=== PATIENT | female | born 1935 | race Caucasian/White ===

== ENCOUNTER 2021-03-06 23:39 | Inpatient (IN) ==
--- NOTE | 2021-03-06 23:59 | Emergency Department Note ---
Impression & Plan Hip fracture, left, Dementia, Acute UTI (urinary tract infection) ED Provider Note Name: STEPHEN BLACKWELL Age: 85 Sex: F Arrives Via: Ambulance Informant: Chart, EMS, ED Provider: Chano Logan MD Chief Complaint: fall Impression: Left Hip fracture Dementia Acute UTI Medical Decision Makin yr old female from local [facility] with fall earlier in evening. Exam consistent with left hip fracture that was diagnosed by xray earlier at [facility]. CT head negative for acute findings. Work-up benign other than Straight cath UA consistent with UTI. Not in much distress on several evaluations. Hospitalist consulted for further evaluation. did show up later in evening and I discussed case with him at bedside as well as did Dr Becerra. Prior Medical Record and Triage/Nursing Notes reviewed by Me Additional history obtained from chart Differentials:Infection, dehydration, metabolic abnormality, hypo/hyperglycemia, electrolyte disturbance, anemia, hypoxia, cardiac sources, intracerebral event, toxicologic, neurologic, as well as other pathologies. Vital Signs: reviewed and remarkable for no significant abnormalities Interventions: Saline lock, rocephin 1 gm iv Labs:Reviewed and remarkable for UA consistent with UTI Imaging:[facility] Radiologist interpretation reviewed by me: CT head negative per [facility] X ray results are stated below per my interpretation: Chest: 1 view: No infiltrate, no effusion, normal cardiac border. hip left hip fracture. EKG:Per My Interpretation: Indication weakness: NSR 94 bpm, qtc 450. Poor baseline. No Ectopy. No Ischemia. Compared to EKG 10/28/20 similar morphology though rate has increased. Cardiac/Tele Monitoring: Cardiac Monitoring: An Order was placed for continuous cardiac monitoring. The monitor shows a rate of 90 with a normal sinus rhythm. Consults:Dr Hernan Wilson hospitalist Plan: Disposition:Hospitalization. Condition: Fair History of Present Illness:85 yr old female arrives for evaluation of left hip pain. Patient feel around dinner time. Complaining of left hip pain. No reported LOC, head injury nor other injuries. She is not on any blood thinners. No known previous injuries. Dementia patient unable to given history. No known meds prior to arrival. ROS: Unable to obtain due to dementia Past Medical History:Dementia Past Surgical History:See Below Family History:See Below Social History:See Below Home Medications:See Below Allergies:See Below Vitals:Blood Pressure: 143/78, Pulse 90, RR 18, T 36.8C, O2 93% on RA Physical Exam: GENERAL: Patient is elderly appearing and in no acute distress. EYES: No scleral icterus, unremarkable pupils. ENT: Mucous membranes moist, no nasal congestion. NECK: No masses appreciated, nomeningismus, trachea is midline. RESPIRATORY: No dyspnea. Clear to auscultation and equal bilaterally. No wheeze, no rhonchi. CARDIOVASCULAR: Regular rate and rhythm.No murmurs, rubs, gallops appreciated. GASTROINTESTINAL: Abdomen soft, non-tender, no peritonitis.Bowel sounds positive.No masses appreciated. BACK: No midline tenderness, no CVA tenderness EXTREMITIES: Shortened rotated left leg with pain on movement left hip. Pulses intact. Otherwise normal motion all extremities, no cyanosis, no edema. NEUROLOGIC: Significant dementia, sleeping, no acute motor or sensory deficits, no focal weakness, cranial nerves grossly intact. SKIN: No rash, no jaundice, no diaphoresis. 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 Feels Safe at Home: Yes Allergies Allergies Allergy/AdvReac Type Severity Reaction Status Date / Time No Known Allergies Allergy Verified 03/07/21 01:31 Home Meds Home Medications Medication Instructions Recorded Confirmed vitamins A,C,I-iugz-zbetui 14,320 1 cap PO AMHS 02/09/20 03/07/21 unit-226 mg-200 unit capsule (PreserVision AREDS) lorazepam 0.5 mg tablet 0.25 mg PO TID 10/28/20 03/07/21 acetaminophen 325 mg tablet 650 mg PO Q4H PRN MDD 3 GRAMS/24 03/07/21 03/07/21 (Tylenol) HOURS cholecalciferol (vitamin D3) 10 10 mcg PO QAM 03/07/21 03/07/21 mcg/mL (400 unit/mL) oral drops divalproex 125 mg tablet,delayed 125 mg PO BID 03/07/21 03/07/21 release (Depakote) donepezil 5 mg tablet (Aricept) 10 mg PO QAM 03/07/21 03/07/21 melatonin 3 mg tablet 3 mg PO HS 03/07/21 03/07/21 mirtazapine 15 mg tablet (Remeron) 15 mg PO HS 03/07/21 03/07/21 multivitamin 1 tab PO QAM 03/07/21 03/07/21 olanzapine 10 mg tablet 5 mg PO BID 03/07/21 03/07/21 sennosides 8.6 mg tablet (senna) 8.6 mg PO HS 03/07/21 03/07/21 Results & Data (ED) Vital Signs Vital Signs - 24 hr 03/06/21 23:47 03/07/21 00:30 03/07/21 02:48 Temperature 36.8 C Temperature Source Oral Pulse Rate 90 Pulse Rate [Apical] 90 92 H Respiratory Rate 18 18 18 Blood Pressure 143/78 H Blood Pressure [Right Arm] 154/81 H 125/91 Blood Pressure Mean 99 Blood Pressure Mean [Right Arm] 105 102 Pulse Oximetry 93 92 93 Oxygen Delivery Method Room Air Room Air Room Air Sepsis Recent Fever Within 48 Hours No Sepsis New/Unexplained Change in Mental Status N/A Sepsis Action Taken by Nursing No Action Required Laboratory Data Result diagrams: 03/07/21 00:19 03/07/21 01:26 Lab Results 03/07/21 03/07/21 03/07/21 Range/Units 00:19 00:19 00:19 WBC 14.08 H (4.8-10.8) K/uL RBC 4.36 (4.2-5.4) M/uL Hgb 13.8 (12.0-16.0) g/dL Hct 42.6 (37-47) % MCV 97.7 (80-100) fL MCH 31.7 (25-34) pg MCHC 32.4 (32-36) g/dL RDW Std Deviation 45.4 (36.4-46.3) fL RDW Coeff of Enrrique 12.6 (11.5-14.5) % Plt Count 229 (130-400) K/uL MPV 10.8 H (7.4-10.4) fL Immature Gran % (Auto) 0.4 % Neut % (Auto) 82.8 % Lymph % (Auto) 8.5 % [place] % (Auto) 8.1 % Eos % (Auto) 0.1 % Baso % (Auto) 0.1 % Neut # (Auto) 11.67 H (1.4-6.5) K/uL Lymph # (Auto) 1.19 L (1.2-3.4) K/uL [place] # (Auto) 1.14 H (0.11-0.59) K/uL Eos # (Auto) 0.01 (0-0.5) K/uL Baso # (Auto) 0.02 (0-0.2) K/uL Immature Gran # (Auto) 0.05 H (0.00-0.02) K/uL PT Cancelled INR Cancelled APTT Cancelled PTT Ratio Cancelled Sodium (136-145) mmol/L Potassium (3.5-5.1) mmol/L Chloride (98-107) mmol/L Carbon Dioxide (21-32) mmol/L Anion Gap (3-11) BUN (7-18) mg/dl Creatinine (0.6-1.2) mg/dl Est Cr Clr Drug Dosing ml/min Est GFR ( Amer) ml/min Est GFR (Non-Af Amer) ml/min BUN/Creatinine Ratio (10-20) Glucose (70-99) mg/dl Estimat Average Glucose mg/dl Hemoglobin A1c (4.5-5.6) % Calcium (8.5-10.1) mg/dl Magnesium (1.8-2.4) mg/dl Total Bilirubin (0.2-1) mg/dl AST (15-37) U/L ALT (12-78) U/L Alkaline Phosphatase (45-117) U/L Total Protein (6.4-8.2) gm/dl Albumin (3.4-5.0) gm/dl Globulin (2.5-4.0) gm/dl Albumin/Globulin Ratio (0.9-2) Urine Color Urine Appearance (Clear) Urine pH (4.5-7.5) Ur Specific Berry (1.000-1.030) Urine Protein (Negative) Urine Glucose (UA) (Negative) Urine Ketones (Negative) Urine Blood (Negative) Urine Nitrite (Negative) Urine Bilirubin (Negative) Urine Urobilinogen (Negative) Ur Leukocyte Esterase (Negative) Urine WBC (Auto) (0-5) /hpf Urine RBC (Auto) (0-4) /hpf U Hyaline Cast (Auto) (0-5) /lpf U Epithel Cells (Auto) (0-5) /lpf Urine Bacteria (Auto) (Negative) Urine Yeast COVID-19 Eval Order SARS-CoV-2 (PCR) (Negative) Blood Type Cancelled Antibody Screen Cancelled 03/07/21 03/07/21 03/07/21 Range/Units 00:19 00:32 00:32 WBC (4.8-10.8) K/uL RBC (4.2-5.4) M/uL Hgb (12.0-16.0) g/dL Hct (37-47) % MCV (80-100) fL MCH (25-34) pg MCHC (32-36) g/dL RDW Std Deviation (36.4-46.3) fL RDW Coeff of Enrrique (11.5-14.5) % Plt Count (130-400) K/uL MPV (7.4-10.4) fL Immature Gran % (Auto) % Neut % (Auto) % Lymph % (Auto) % [place] % (Auto) % Eos % (Auto) % Baso % (Auto) % Neut # (Auto) (1.4-6.5) K/uL Lymph # (Auto) (1.2-3.4) K/uL [place] # (Auto) (0.11-0.59) K/uL Eos # (Auto) (0-0.5) K/uL Baso # (Auto) (0-0.2) K/uL Immature Gran # (Auto) (0.00-0.02) K/uL PT INR APTT PTT Ratio Sodium 141 (136-145) mmol/L Potassium (3.5-5.1) mmol/L Chloride 107 (98-107) mmol/L Carbon Dioxide 28 (21-32) mmol/L Anion Gap 5.0 (3-11) BUN 22 H (7-18) mg/dl Creatinine 0.99 (0.6-1.2) mg/dl Est Cr Clr Drug Dosing 38.1 ml/min Est GFR ( Amer) 60.6 ml/min Est GFR (Non-Af Amer) 52.3 ml/min BUN/Creatinine Ratio 22.2 H (10-20) Glucose 143 H (70-99) mg/dl Estimat Average Glucose mg/dl Hemoglobin A1c (4.5-5.6) % Calcium 8.9 (8.5-10.1) mg/dl Magnesium (1.8-2.4) mg/dl Total Bilirubin 0.7 (0.2-1) mg/dl AST (15-37) U/L ALT 30 (12-78) U/L Alkaline Phosphatase 84 (45-117) U/L Total Protein 6.6 (6.4-8.2) gm/dl Albumin 2.9 L (3.4-5.0) gm/dl Globulin 3.7 (2.5-4.0) gm/dl Albumin/Globulin Ratio 0.8 L (0.9-2) Urine Color Dark Yellow Urine Appearance Cloudy A (Clear) Urine pH 7.0 (4.5-7.5) Ur Specific Berry 1.024 (1.000-1.030) Urine Protein Negative (Negative) Urine Glucose (UA) Negative (Negative) Urine Ketones Trace H (Negative) Urine Blood Negative (Negative) Urine Nitrite Negative (Negative) Urine Bilirubin Negative (Negative) Urine Urobilinogen Negative (Negative) Ur Leukocyte Esterase 3+ H (Negative) Urine WBC (Auto) >30 H (0-5) /hpf Urine RBC (Auto) 0-4 (0-4) /hpf U Hyaline Cast (Auto) 0 (0-5) /lpf U Epithel Cells (Auto) 20-30 H (0-5) /lpf Urine Bacteria (Auto) 4+ H (Negative) Urine Yeast Not Reportable COVID-19 Eval Order Covid19 at [facility] SARS-CoV-2 (PCR) (Negative) Blood Type Antibody Screen 03/07/21 03/07/21 03/07/21 Range/Units 00:32 01:26 01:26 WBC (4.8-10.8) K/uL RBC (4.2-5.4) M/uL Hgb (12.0-16.0) g/dL Hct (37-47) % MCV (80-100) fL MCH (25-34) pg MCHC (32-36) g/dL RDW Std Deviation (36.4-46.3) fL RDW Coeff of Enrrique (11.5-14.5) % Plt Count (130-400) K/uL MPV (7.4-10.4) fL Immature Gran % (Auto) % Neut % (Auto) % Lymph % (Auto) % [place] % (Auto) % Eos % (Auto) % Baso % (Auto) % Neut # (Auto) (1.4-6.5) K/uL Lymph # (Auto) (1.2-3.4) K/uL [place] # (Auto) (0.11-0.59) K/uL Eos # (Auto) (0-0.5) K/uL Baso # (Auto) (0-0.2) K/uL Immature Gran # (Auto) (0.00-0.02) K/uL PT INR APTT PTT Ratio Sodium (136-145) mmol/L Potassium 4.0 (3.5-5.1) mmol/L Chloride (98-107) mmol/L Carbon Dioxide (21-32) mmol/L Anion Gap (3-11) BUN (7-18) mg/dl Creatinine (0.6-1.2) mg/dl Est Cr Clr Drug Dosing ml/min Est GFR ( Amer) ml/min Est GFR (Non-Af Amer) ml/min BUN/Creatinine Ratio (10-20) Glucose (70-99) mg/dl Estimat Average Glucose mg/dl Hemoglobin A1c (4.5-5.6) % Calcium (8.5-10.1) mg/dl Magnesium 2.1 (1.8-2.4) mg/dl Total Bilirubin (0.2-1) mg/dl AST 27 (15-37) U/L ALT (12-78) U/L Alkaline Phosphatase (45-117) U/L Total Protein (6.4-8.2) gm/dl Albumin (3.4-5.0) gm/dl Globulin (2.5-4.0) gm/dl Albumin/Globulin Ratio (0.9-2) Urine Color Urine Appearance (Clear) Urine pH (4.5-7.5) Ur Specific Berry (1.000-1.030) Urine Protein (Negative) Urine Glucose (UA) (Negative) Urine Ketones (Negative) Urine Blood (Negative) Urine Nitrite (Negative) Urine Bilirubin (Negative) Urine Urobilinogen (Negative) Ur Leukocyte Esterase (Negative) Urine WBC (Auto) (0-5) /hpf Urine RBC (Auto) (0-4) /hpf U Hyaline Cast (Auto) (0-5) /lpf U Epithel Cells (Auto) (0-5) /lpf Urine Bacteria (Auto) (Negative) Urine Yeast COVID-19 Eval Order SARS-CoV-2 (PCR) NEGATIVE (Negative) Blood Type O Positive Antibody Screen NEGATIVE 03/07/21 03/07/21 Range/Units 01:26 01:27 WBC (4.8-10.8) K/uL RBC (4.2-5.4) M/uL Hgb (12.0-16.0) g/dL Hct (37-47) % MCV (80-100) fL MCH (25-34) pg MCHC (32-36) g/dL RDW Std Deviation (36.4-46.3) fL RDW Coeff of Enrrique (11.5-14.5) % Plt Count (130-400) K/uL MPV (7.4-10.4) fL Immature Gran % (Auto) % Neut % (Auto) % Lymph % (Auto) % [place] % (Auto) % Eos % (Auto) % Baso % (Auto) % Neut # (Auto) (1.4-6.5) K/uL Lymph # (Auto) (1.2-3.4) K/uL [place] # (Auto) (0.11-0.59) K/uL Eos # (Auto) (0-0.5) K/uL Baso # (Auto) (0-0.2) K/uL Immature Gran # (Auto) (0.00-0.02) K/uL PT 10.7 INR 1.1 APTT 26.9 PTT Ratio 1.0 Sodium (136-145) mmol/L Potassium (3.5-5.1) mmol/L Chloride (98-107) mmol/L Carbon Dioxide (21-32) mmol/L Anion Gap (3-11) BUN (7-18) mg/dl Creatinine (0.6-1.2) mg/dl Est Cr Clr Drug Dosing ml/min Est GFR ( Amer) ml/min Est GFR (Non-Af Amer) ml/min BUN/Creatinine Ratio (10-20) Glucose (70-99) mg/dl Estimat Average Glucose 97 mg/dl Hemoglobin A1c 5.0 (4.5-5.6) % Calcium (8.5-10.1) mg/dl Magnesium (1.8-2.4) mg/dl Total Bilirubin (0.2-1) mg/dl AST (15-37) U/L ALT (12-78) U/L Alkaline Phosphatase (45-117) U/L Total Protein (6.4-8.2) gm/dl Albumin (3.4-5.0) gm/dl Globulin (2.5-4.0) gm/dl Albumin/Globulin Ratio (0.9-2) Urine Color Urine Appearance (Clear) Urine pH (4.5-7.5) Ur Specific Berry (1.000-1.030) Urine Protein (Negative) Urine Glucose (UA) (Negative) Urine Ketones (Negative) Urine Blood (Negative) Urine Nitrite (Negative) Urine Bilirubin (Negative) Urine Urobilinogen (Negative) Ur Leukocyte Esterase (Negative) Urine WBC (Auto) (0-5) /hpf Urine RBC (Auto) (0-4) /hpf U Hyaline Cast (Auto) (0-5) /lpf U Epithel Cells (Auto) (0-5) /lpf Urine Bacteria (Auto) (Negative) Urine Yeast COVID-19 Eval Order SARS-CoV-2 (PCR) (Negative) Blood Type Antibody Screen Administered Medications Sodium Chloride (1/2 Nss) 1,000 mls @ 75 mls/hr IV .[id number] ALTAGRACIA Stop: 04/06/21 04:14 Last Admin: 03/07/21 05:28 Dose: 75 mls/hr Documented by: [id number] Discontinued Medications Ceftriaxone Sodium (Rocephin) 1,000 mg in 50 mls @ 100 mls/hr IV NOW STA Stop: 03/07/21 01:40 Last Infusion: 03/07/21 02:48 Dose: 0 mls/hr Documented by: [id number] Admin: 03/07/21 02:08 Dose: 100 mls/hr Documented by: [id number] Imaging Data Radiologist's Impression: Head CT 03/06/21 23:56 CT head/brain wo con CLINICAL HISTORY: 85 years-old Female with fall, hip fracture. Acute head injury status post fall TECHNIQUE: Multiple axial CT images of the head were obtained without contrast. A dose lowering technique was utilized adhering to the principles of ALARA. CT DOSE: 537.48 mGy.cm COMPARISON: 10/30/2020 FINDINGS: No acute intracranial hemorrhage, midline shift, intracranial mass, hydrocephalus, territorial ischemia or abnormal extra-axial collection. Age- related involutional changes with ex vacuo ventriculomegaly. White matter hypodensities suggestive of chronic microvascular ischemic disease. The calvarium is intact. Prior bilateral lens repair. The paranasal sinuses, mastoid air cells, and middle ear cavities are clear. IMPRESSION: No acute intracranial abnormality. ACT 112: Negative or not required by law. The above report was generated using voice recognition software. It may contain grammatical, syntax or spelling errors. Electronically signed by: Shailesh Benton M.D. 03/07/2021 6:41 AM Chest X-Ray 03/06/21 23:57 XR chest 1V portable HISTORY: 85 years-old Female fall, acute chest trauma status post fall COMPARISON: Chest radiograph 04/30/2020 TECHNIQUE: Portable AP view of the chest FINDINGS: Cardiac silhouette is enlarged. Mild chronic interstitial coarsening. No pneumothorax, pleural effusion, airspace consolidation or overt pulmonary edema. Degenerative changes of the shoulders and spine. There are a few chronic appearing anterior right-sided rib fractures. Mid thoracic dextroscoliosis. IMPRESSION: No acute process. ACT 112: Negative or not required by law. The above report was generated using voice recognition software. It may contain grammatical, syntax or spelling errors. Electronically signed by: Shailesh Benton M.D. 03/07/2021 6:39 AM Hip X-Ray 03/06/21 23:57 XR hip LT min 2V HISTORY: 85 years-old Female left hip pain acute left hip pain status post fall COMPARISON: None TECHNIQUE: 2 views of the left hip FINDINGS: There is an acute subcapital fracture of the left femur with mild impaction and approximately 2.5 cm superior lateral displacement. Moderate soft tissue swelling. Moderate left hip osteoarthritis with demineralized appearance of the bones. IMPRESSION: Acute impacted and displaced subcapital fracture of the left femur. ACT 112: Negative or not required by law. The above report was generated using voice recognition software. It may contain grammatical, syntax or spelling errors. Electronically signed by: Shailesh Benton M.D. 03/07/2021 6:36 AM Discharge Plan Visit Data Chief Complaint: Fall Stated Complaint: FALL w/ lt. HIP FRACTURE PER XRAY ED Provider: Chano Logan Discharge Problem: Hip fracture, left, Dementia, Acute UTI (urinary tract infection) Patient Disposition: Admitted As Inpatient Discharge Instructions Interventions: ED Discharge Assessment Last Done: 03/07/21 04:04 Discharge Problem: Hip fracture, left Qualifiers: Encounter type: initial encounter Fracture type: closed Qualified Code(s): S72.002A - Fracture of unspecified part of neck of left femur, initial encounter for closed fracture Dementia Qualifiers: Dementia type: Alzheimer's Alzheimer's disease onset: other onset Dementia behavioral disturbance: without behavioral disturbance Qualified Code(s): G30.8 - Other Alzheimer's disease
[2021-03-07 00:41] LABS: Basophils # (auto) 0.02 K/uL (0-0.2); Basophils % (auto) 0.1 %; Eosinophils # (auto) 0.01 K/uL (0-0.5); Eosinophils % (auto) 0.1 %; Hematocrit (blood only) 42.6 % (37-47); Hemoglobin 13.8 g/dL (12.0-16.0); Immature Granulocytes # (auto) 0.05 K/uL (0.00-0.02); Immature Granulocytes % (auto) 0.4 %; Lymphocytes # (auto) 1.19 K/uL (1.2-3.4); Lymphocytes % (auto) 8.5 %; Mean Corpuscular Hemoglobin 31.7 pg (25-34); Mean Corpuscular Hgb Conc 32.4 g/dL (32-36); Mean Corpuscular Volume 97.7 fL (80-100); Mean Platelet Volume 10.8 fL (7.4-10.4); Monocytes # (auto) 1.14 K/uL (0.11-0.59); Monocytes % (auto) 8.1 %; Neutrophils # (auto) 11.67 K/uL (1.4-6.5); Neutrophils % (auto) 82.8 %; Platelet Count 229 K/uL (130-400); RDW Coefficient of Variation 12.6 % (11.5-14.5); RDW Standard Deviation 45.4 fL (36.4-46.3); Red Blood Count 4.36 M/uL (4.2-5.4); White Blood Count 14.08 K/uL (4.8-10.8)
[2021-03-07 00:50] LABS: Appearance Urine Cloudy (Clear); Bacteria Urine Automated 4+ (Negative); Bilirubin Urine Negative (Negative); Blood Urine Negative (Negative); Cast Urine Automated 0 /lpf (0-5); Color Urine Dark Yellow; Epithelial Cell Urine Auto 20-30 /lpf (0-5); Glucose Urine UA Negative (Negative); Ketones Urine Trace (Negative); Leukocyte Esterase Urine 3+ (Negative); Nitrite Urine Negative (Negative); Protein Urine Negative (Negative); RBC Urine Automated 0-4 /hpf (0-4); Specific Gravity Urine 1.024 (1.000-1.030); Urobilinogen Urine Negative (Negative); WBC Urine Automated >30 /hpf (0-5)
[2021-03-07 01:03] LABS: Albumin Globulin Ratio 0.8 (0.9-2); Albumin Level 2.9 gm/dl (3.4-5.0); BUN Creatinine Ratio 22.2 (10-20); Bilirubin,Total 0.7 mg/dl (0.2-1); Calcium 8.9 mg/dl (8.5-10.1); Creatinine Clr Calc Pharmacy 38.1 ml/min; Est GFR (African American) 60.6 ml/min; Est GFR (Non-African American) 52.3 ml/min; Globulin 3.7 gm/dl (2.5-4.0); Total Protein 6.6 gm/dl (6.4-8.2)
[2021-03-07] MEDS ORDERED: cefTRIAXone SODIUM 1,000 MG/50 ML BAG IV STA (01:11)
[2021-03-07 01:49] LABS: INR 1.1 (0.9-1.1); Partial Thromboplastin Time 26.9 Seconds (21.0-31.0); Prothrombin Time 10.7 Seconds (9.0-12.0)
[2021-03-07 01:58] LABS: Magnesium 2.1 mg/dl (1.8-2.4)
--- NOTE | 2021-03-07 03:20 | History & Physical Report ---
Date of Service March 07, 2021 Assessment & Plan (1) Hip fracture, left: Plan: Secondary to mechanical fall dementia, at baseline Hyperglycemia rule out DM Asymptomatic pyuria, no sepsis for now past tobacco abuse [facility] Orthopedics consult Re: Left hip fracture No medical contraindication to surgery if recommended by Orthopedics and patient/family agreeable to attendant procedural benefits and risks. Acceptable risk for medical complications. Delirium precautions Check hemoglobin A1c Follow urine CS, hold antibiotics for now DVT prophylaxis. SCDs possible surgery Recommend pharmacologic anticoagulation once bleeding risk is deemed to be minimal and negligible pending Orthopedics evaluation. DNR as per , Mr. Deedee Justin. He requests updates from providers thru [phone]. Text document was generated using [employer] voice recognition software. It may contain grammatical or spelling errors. Kindly contact undersigned for clarification of any documentation item in question. History of Present Illness Chief Complaint: It is all right as per patient Left hip fracture as per records Primary Care Provider: Flakita polo [place] History obtained from family, [facility] staff, and records. Limited history from patient secondary to dementia. Medical history significant for dementia, osteoporosis, anxiety/mood disorder, past tobacco abuse. Patient found on the floor by [facility] staff around dinnertime. Complaining of left hip pain. Outpatient x-ray showed acute subcapital fracture of the left hip. Patient brought to the ER for evaluation. Patient not any more confused than usual as per . Patient given Ceftriaxone at the ER for possible UTI. 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 Allergies Allergy/AdvReac Type Severity Reaction Status Date / Time No Known Allergies Allergy Verified 03/07/21 01:31 Home Medications Medication Instructions Recorded Confirmed Type vitamins A,C,B-xgrh-imaxkl 14,320 1 cap PO AMHS 02/09/20 03/07/21 History unit-226 mg-200 unit capsule (PreserVision AREDS) lorazepam 0.5 mg tablet 0.25 mg PO TID 10/28/20 03/07/21 History acetaminophen 325 mg tablet 650 mg PO Q4H PRN MDD 3 GRAMS/24 03/07/21 03/07/21 History (Tylenol) HOURS cholecalciferol (vitamin D3) 10 10 mcg PO QAM 03/07/21 03/07/21 History mcg/mL (400 unit/mL) oral drops divalproex 125 mg tablet,delayed 125 mg PO BID 03/07/21 03/07/21 History release (Depakote) donepezil 5 mg tablet (Aricept) 10 mg PO QAM 03/07/21 03/07/21 History melatonin 3 mg tablet 3 mg PO HS 03/07/21 03/07/21 History mirtazapine 15 mg tablet (Remeron) 15 mg PO HS 03/07/21 03/07/21 History multivitamin 1 tab PO QAM 03/07/21 03/07/21 History olanzapine 10 mg tablet 5 mg PO BID 03/07/21 03/07/21 History sennosides 8.6 mg tablet (senna) 8.6 mg PO HS 03/07/21 03/07/21 History Past Med/Surg History Medical History Dementia No pertinent family history Surgical History No pertinent past surgical history Social History Smoking Status: Unknown if ever smoked Hx Alcohol Use: No (unknown; pt unable to answer) Hx Substance Use: No (unknown; pt unable to answer) Preferred Language: Faroese 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 Current Living Situation: Shelter Feels Safe at Home: Yes Review of Systems Review of Systems: Could not be reliably obtained Physical Exam Physical Exam: GENERAL: Comfortable, demented, no respiratory distress SKIN: Normal color, warm HEENT: Gunter palpebral conjunctivae, no ptosis, dry buccal mucosa NECK : Supple, no tenderness CHEST : CTA, no tenderness HEART : RRR, no obvious murmurs ABDOMEN: Some distention, nontender EXTREMITIES : Left hip tenderness, no other conspicuous deformities noted NEUROLOGIC : Demented, no facial asymmetry, no other gross focality Results & Data Results & Data ([facility]) Vital Signs (Past 12 Hours) Vital Signs Temp Pulse Pulse Resp BP BP Pulse Ox 03/07/21 02:48 92 H 18 125/91 93 03/07/21 00:30 90 18 154/81 H 92 03/06/21 23:47 36.8 C 90 18 143/78 H 93 Laboratory Results Laboratory Results WBC 14.08 K/uL (4.8-10.8) H 03/07/21 00:19 RBC 4.36 M/uL (4.2-5.4) 03/07/21 00:19 Hgb 13.8 g/dL (12.0-16.0) 03/07/21 00:19 Hct 42.6 % (37-47) 03/07/21 00:19 MCV 97.7 fL (80-100) 03/07/21 00:19 MCH 31.7 pg (25-34) 03/07/21 00:19 MCHC 32.4 g/dL (32-36) 03/07/21 00:19 RDW Std Deviation 45.4 fL (36.4-46.3) 03/07/21 00:19 RDW Coeff of Enrrique 12.6 % (11.5-14.5) 03/07/21 00:19 Plt Count 229 K/uL (130-400) 03/07/21 00:19 MPV 10.8 fL (7.4-10.4) H 03/07/21 00:19 Immature Gran % (Auto) 0.4 % 03/07/21 00:19 Neut % (Auto) 82.8 % 03/07/21 00:19 Lymph % (Auto) 8.5 % 03/07/21 00:19 Sibley % (Auto) 8.1 % 03/07/21 00:19 Eos % (Auto) 0.1 % 03/07/21 00:19 Baso % (Auto) 0.1 % 03/07/21 00:19 Neut # (Auto) 11.67 K/uL (1.4-6.5) H 03/07/21 00:19 Lymph # (Auto) 1.19 K/uL (1.2-3.4) L 03/07/21 00:19 Sibley # (Auto) 1.14 K/uL (0.11-0.59) H 03/07/21 00:19 Eos # (Auto) 0.01 K/uL (0-0.5) 03/07/21 00:19 Baso # (Auto) 0.02 K/uL (0-0.2) 03/07/21 00:19 Immature Gran # (Auto) 0.05 K/uL (0.00-0.02) H 03/07/21 00:19 PT 10.7 Seconds (9.0-12.0) 03/07/21 01:26 INR 1.1 (0.9-1.1) 03/07/21 01:26 APTT 26.9 Seconds (21.0-31.0) 03/07/21 01:26 PTT Ratio 1.0 03/07/21 01:26 Sodium 141 mmol/L (136-145) 03/07/21 00:19 Potassium 4.0 mmol/L (3.5-5.1) 03/07/21 01:26 Chloride 107 mmol/L (98-107) 03/07/21 00:19 Carbon Dioxide 28 mmol/L (21-32) 03/07/21 00:19 Anion Gap 5.0 (3-11) 03/07/21 00:19 BUN 22 mg/dl (7-18) H 03/07/21 00:19 Creatinine 0.99 mg/dl (0.6-1.2) 03/07/21 00:19 Est Cr Clr Drug Dosing 38.1 ml/min 03/07/21 00:19 Est GFR ( Amer) 60.6 ml/min 03/07/21 00:19 Est GFR (Non-Af Amer) 52.3 ml/min 03/07/21 00:19 BUN/Creatinine Ratio 22.2 (10-20) H 03/07/21 00:19 Glucose 143 mg/dl (70-99) H 03/07/21 00:19 Calcium 8.9 mg/dl (8.5-10.1) 03/07/21 00:19 Magnesium 2.1 mg/dl (1.8-2.4) 03/07/21 01:26 Total Bilirubin 0.7 mg/dl (0.2-1) 03/07/21 00:19 AST 27 U/L (15-37) 03/07/21 01:26 ALT 30 U/L (12-78) 03/07/21 00:19 Alkaline Phosphatase 84 U/L (45-117) 03/07/21 00:19 Total Protein 6.6 gm/dl (6.4-8.2) 03/07/21 00:19 Albumin 2.9 gm/dl (3.4-5.0) L 03/07/21 00:19 Globulin 3.7 gm/dl (2.5-4.0) 03/07/21 00:19 Albumin/Globulin Ratio 0.8 (0.9-2) L 03/07/21 00:19 Urine Color Dark Yellow 03/07/21 00:32 Urine Appearance Cloudy (Clear) A 03/07/21 00:32 Urine pH 7.0 (4.5-7.5) 03/07/21 00:32 Ur Specific Max 1.024 (1.000-1.030) 03/07/21 00:32 Urine Protein Negative (Negative) 03/07/21 00:32 Urine Glucose (UA) Negative (Negative) 03/07/21 00:32 Urine Ketones Trace (Negative) H 03/07/21 00:32 Urine Blood Negative (Negative) 03/07/21 00:32 Urine Nitrite Negative (Negative) 03/07/21 00:32 Urine Bilirubin Negative (Negative) 03/07/21 00:32 Urine Urobilinogen Negative (Negative) 03/07/21 00:32 Ur Leukocyte Esterase 3+ (Negative) H 03/07/21 00:32 Urine WBC (Auto) >30 /hpf (0-5) H 03/07/21 00:32 Urine RBC (Auto) 0-4 /hpf (0-4) 03/07/21 00:32 U Hyaline Cast (Auto) 0 /lpf (0-5) 03/07/21 00:32 U Epithel Cells (Auto) 20-30 /lpf (0-5) H 03/07/21 00:32 Urine Bacteria (Auto) 4+ (Negative) H 03/07/21 00:32 Urine Yeast Not Reportable 03/07/21 00:32 COVID-19 Eval Order Covid19 at [facility] 03/07/21 00:32 SARS-CoV-2 (PCR) NEGATIVE (Negative) 03/07/21 00:32 Blood Type O Positive 03/07/21 01:26 Antibody Screen NEGATIVE 03/07/21 01:26 Diagnostic Findings Left hip x-ray as per my interpretation: Displaced left subcapital fracture CT head initial read: Moderate volume loss. Mild chronic ischemic changes. No mass, hemorrhage or acute infarct. No acute findings. Chest x-ray as per my interpretation: Cardiomegaly, atelectasis EKG as per my interpretation : Rate 95, NSR, LAD, LAFB, incomplete RBBB, T wave abnormalities inferior leads
[2021-03-07] MEDS ORDERED: KETOROLAC TROMETHAMINE 15 MG/ML VIAL IV PRN (05:07)
[2021-03-07] MEDS ORDERED: NALOXONE HCL 0.4 MG/1 ML VIAL/CARP IV PRN ×2 (05:07→17:52)
[2021-03-07] MEDS ORDERED: PROMETHAZINE HCL 12.5 MG in SODIUM CHLORIDE 0.9% 50 ML IV PRN (05:07)
[2021-03-07] MEDS ORDERED: OLANZapine 10 MG/2.1 ML SDV IM PRN (05:07)
[2021-03-07] MEDS ORDERED: ACETAMINOPHEN 325 MG TAB PO PRN ×2 (05:07)
[2021-03-07] MEDS ORDERED: traMADol HCL 50 MG TABLET PO PRN (05:07)
[2021-03-07] MEDS: SODIUM CHLORIDE 0.45 % 1,000 ML IV SCH ×2 (05:28→20:57)
--- NOTE | 2021-03-07 06:38 | XRay Report ---
XR hip LT min 2V HISTORY: 85 years-old Female left hip pain acute left hip pain status post fall COMPARISON: None TECHNIQUE: 2 views of the left hip FINDINGS: There is an acute subcapital fracture of the left femur with mild impaction and approximately 2.5 cm superior lateral displacement. Moderate soft tissue swelling. Moderate left hip osteoarthritis with d emineralized appearance of the bones. IMPRESSION: Acute impacted and displaced subcapital fracture of the left femur. ACT 112: Negative or not required by law. The above report was generated using voice recognition software. It may contain grammatical, syntax o r spelling errors. Electronically signed by: Shailesh Benton M.D. 03/07/2021 6:36 AM
--- NOTE | 2021-03-07 06:40 | XRay Report ---
XR chest 1V portable HISTORY: 85 years-old Female fall, acute chest trauma status post fall COMPARISON: Chest radiograph 04/30/2020 TECHNIQUE: Portable AP view of the chest FINDINGS: Cardiac silhouette is enlarged. Mild chronic interstitial coarsening. No pneumothorax, pleural effusi on, airspace consolidation or overt pulmonary edema. Degenerative changes of the shoulders and spine. There are a few chronic appearing anterior right-sided rib fractures. Mid thoracic dextroscoliosis. IMPRESSION: No acute process. ACT 112: Negative or not required by law. The above report was generated using voice recognition software. It may contain grammatical, syntax o r spelling errors. Electronically signed by: Shailesh Benton M.D. 03/07/2021 6:39 AM
--- NOTE | 2021-03-07 06:42 | CT Scan Report ---
CT head/brain wo con CLINICAL HISTORY: 85 years-old Female with fall, hip fracture. Acute head injury status post fall TECHNIQUE: Multiple axial CT images of the head were obtained without contrast. A dose lowering tech nique was utilized adhering to the principles of ALARA. CT DOSE: 537.48 mGy.cm COMPARISON: 10/30/2020 FINDINGS: No acute intracranial hemorrhage, midline shift, intracranial mass, hydrocephalus, territorial ischem ia or abnormal extra-axial collection. Age-related involutional changes with ex vacuo ventriculomegal y. White matter hypodensities suggestive of chronic microvascular ischemic disease. The calvarium is intact. Prior bilateral lens repair. The paranasal sinuses, mastoid air cells, and m iddle ear cavities are clear. IMPRESSION: No acute intracranial abnormality. ACT 112: Negative or not required by law. The above report was generated using voice recognition software. It may contain grammatical, syntax o r spelling errors. Electronically signed by: Shailesh Benton M.D. 03/07/2021 6:41 AM
[2021-03-07 07:21] LABS: Estimated Average Glucose 97 mg/dl
--- NOTE | 2021-03-07 07:42 | Orthopedic Consultation ---
Date of Consultation March 07, 2021 Assessment & Plan (1) Hip fracture, left: Displaced left subcapital hip fracture. Patient will require a left bipolar hemiarthroplasty. Case discussed with Dr. Peres. He is in agreement for the left bipolar hemiarthroplasty. We have added the patient on for surgery today. Medicine service notation noting patient stable for surgery. Plan for bipolar hemiarthroplasty later this afternoon. Continue to keep the patient n.p.o. Ice to left hip as needed. Supervising Physician Co-Signing Physician Notes The patient is a 85-year-old female with displaced left femoral neck fracture sustained after a fall from standing height. The patient was medically stabilized on 03/07/2021. I indicated the patient for left hip hemiarthroplasty. The patient's , who is the POA was informed of the risks and benefits of surgery, which include but not limited to infection, bleeding, blood clots, damage to nerves, vessels, bone and soft tissue, dislocation, leg length discrep howard, need for additional surgery and . The patient's chose to move forward with surgical intervention and informed consent was obtained. History of Present Illness Reason for Consultation: Left hip fracture Attending Physician: Chevy Jones MD History of Present Illness Patient is an 85-year-old white female with history of dementia who resides at [facility]. Past medical history significant for dementia, osteoporosis, anxiety/mood disorder, past tobacco abuse. Patient is apparently at her baseline for her dementia. She currently does not answer any questions or follow commands. She does appear comfortable. Patient was apparently found lying on the floor in her room after dinnertime at her long term facility. She was apparently having pain in the left hip and was eventually brought here to [facility] emergency room. She was seen by the staff and x-rays were taken. It was found she had a displaced subcapital left hip fracture and was admitted for further care. We have been asked to see her for her fracture. In speaking with her this morning, patient was mostly bed to chair transfers but they did ambulate her for distances regularly during the week. Allergies Allergy/AdvReac Type Severity Reaction Status Date / Time No Known Allergies Allergy Verified 03/07/21 01:31 Home Medications Medication Instructions Recorded Confirmed Type vitamins A,C,V-bgek-ledvcq 14,320 1 cap PO AMHS 02/09/20 03/07/21 History unit-226 mg-200 unit capsule (PreserVision AREDS) lorazepam 0.5 mg tablet 0.25 mg PO TID 10/28/20 03/07/21 History acetaminophen 325 mg tablet 650 mg PO Q4H PRN MDD 3 GRAMS/24 03/07/21 03/07/21 History (Tylenol) HOURS cholecalciferol (vitamin D3) 10 10 mcg PO QAM 03/07/21 03/07/21 History mcg/mL (400 unit/mL) oral drops divalproex 125 mg tablet,delayed 125 mg PO BID 03/07/21 03/07/21 History release (Depakote) donepezil 5 mg tablet (Aricept) 10 mg PO QAM 03/07/21 03/07/21 History melatonin 3 mg tablet 3 mg PO HS 03/07/21 03/07/21 History mirtazapine 15 mg tablet (Remeron) 15 mg PO HS 03/07/21 03/07/21 History multivitamin 1 tab PO QAM 03/07/21 03/07/21 History olanzapine 10 mg tablet 5 mg PO BID 03/07/21 03/07/21 History sennosides 8.6 mg tablet (senna) 8.6 mg PO HS 03/07/21 03/07/21 History Patient History Medical History Dementia No pertinent family history Surgical History No pertinent past surgical history Social History Smoking Status: Unknown if ever smoked Hx Alcohol Use: No (unknown; pt unable to answer) Hx Substance Use: No (unknown; pt unable to answer) Preferred Language: Tanzanian Communication Ability: Impaired 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 Dementia apparent. She arouses to verbal stimuli but does not truly respond with discernible answers and does not follow commands. She ap pears comfortable. No acute distress. On examination of her left lower extremity, it is shortened and externally rotated compared to the right. No range of motion was done with the left hip or knee secondary to left hip fracture. Her left knee appears to be nontender on palpation and does not appear to have an effusion when comparing it with the right knee. She is not following commands but whenever moving her feet, she does move her toes and her left ankle little bit. Right lower extremity is appearing benign with no pain with hip, knee, ankle passive range of motion. Shoulders, elbows, and wrists appear to be nontender on palpation and she does not appear to have any discomfort during gentle passive range of motion. Distal pulses are equal bilaterally of the upper and lower extremities. Results & Data ([facility]) Vital Signs (Past 12 Hours) Vital Signs Temp Pulse Pulse Pulse Resp BP BP 03/07/21 07: 36.4 C L 91 H 16 156/90 H 03/07/21 04:55 36.9 C 93 H 18 174/73 H 03/07/21 04:04 94 H 16 121/71 03/07/21 02:48 92 H 18 03/07/21 00:30 90 18 03/06/21 23:47 36.8 C 90 18 143/78 H BP Pulse Ox 03/07/21 07:21 93 03/07/21 04:55 93 03/07/21 04:04 94 03/07/21 02:48 125/91 93 03/07/21 00:30 154/81 H 92 03/06/21 23:47 93 Laboratory Results 03/07/21 03/07/21 03/07/21 Range/Units 06:24 03:53 03:53 WBC (4.8-10.8) K/uL RBC (4.2-5.4) M/uL Hgb (12.0-16.0) g/dL Hct (37-47) % MCV (80-100) fL MCH (25-34) pg MCHC (32-36) g/dL RDW Std Deviation (36.4-46.3) fL RDW Coeff of Enrrique (11.5-14.5) % Plt Count (130-400) K/uL MPV (7.4-10.4) fL Immature Gran % (Auto) % Neut % (Auto) % Lymph % (Auto) % [place] % (Auto) % Eos % (Auto) % Baso % (Auto) % Neut # (Auto) (1.4-6.5) K/uL Lymph # (Auto) (1.2-3.4) K/uL [place] # (Auto) (0.11-0.59) K/uL Eos # (Auto) (0-0.5) K/uL Baso # (Auto) (0-0.2) K/uL Immature Gran # (Auto) (0.00-0.02) K/uL PT INR APTT PTT Ratio Sodium (136-145) mmol/L Potassium (3.5-5.1) mmol/L Chloride (98-107) mmol/L Carbon Dioxide (21-32) mmol/L Anion Gap (3-11) BUN (7-18) mg/dl Creatinine (0.6-1.2) mg/dl Est Cr Clr Drug Dosing ml/min Est GFR ( Amer) ml/min Est GFR (Non-Af Amer) ml/min BUN/Creatinine Ratio (10-20) Glucose (70-99) mg/dl Estimat Average Glucose mg/dl Hemoglobin A1c (4.5-5.6) % Calcium (8.5-10.1) mg/dl Magnesium (1.8-2.4) mg/dl Total Bilirubin (0.2-1) mg/dl AST (15-37) U/L ALT (12-78) U/L Alkaline Phosphatase (45-117) U/L Ammonia < 10.0 L (11-32) umol/L Total Protein (6.4-8.2) gm/dl Albumin (3.4-5.0) gm/dl Globulin (2.5-4.0) gm/dl Albumin/Globulin Ratio (0.9-2) Urine Color Urine Appearance (Clear) Urine pH (4.5-7.5) Ur Specific [place] (1.000-1.030) Urine Protein (Negative) Urine Glucose (UA) (Negative) Urine Ketones (Negative) Urine Blood (Negative) Urine Nitrite (Negative) Urine Bilirubin (Negative) Urine Urobilinogen (Negative) Ur Leukocyte Esterase (Negative) Urine WBC (Auto) (0-5) /hpf Urine RBC (Auto) (0-4) /hpf U Hyaline Cast (Auto) (0-5) /lpf U Epithel Cells (Auto) (0-5) /lpf Urine Bacteria (Auto) (Negative) Urine Yeast Nasal Screen MRSA (PCR) Pending Valproic Acid 23 L (50-100) mcg/ml COVID-19 Eval Order SARS-CoV-2 (PCR) (Negative) Blood Type Antibody Screen 03/07/21 03/07/21 03/07/21 Range/Units 01:27 01:26 01:26 WBC (4.8-10.8) K/uL RBC (4.2-5.4) M/uL Hgb (12.0-16.0) g/dL Hct (37-47) % MCV (80-100) fL MCH (25-34) pg MCHC (32-36) g/dL RDW Std Deviation (36.4-46.3) fL RDW Coeff of Enrrique (11.5-14.5) % Plt Count (130-400) K/uL MPV (7.4-10.4) fL Immature Gran % (Auto) % Neut % (Auto) % Lymph % (Auto) % [place] % (Auto) % Eos % (Auto) % Baso % (Auto) % Neut # (Auto) (1.4-6.5) K/uL Lymph # (Auto) (1.2-3.4) K/uL [place] # (Auto) (0.11-0.59) K/uL Eos # (Auto) (0-0.5) K/uL Baso # (Auto) (0-0.2) K/uL Immature Gran # (Auto) (0.00-0.02) K/uL PT 10.7 INR 1.1 APTT 26.9 PTT Ratio 1.0 Sodium (136-145) mmol/L Potassium 4.0 (3.5-5.1) mmol/L Chloride (98-107) mmol/L Carbon Dioxide (21-32) mmol/L Anion Gap (3-11) BUN (7-18) mg/dl Creatinine (0.6-1.2) mg/dl Est Cr Clr Drug Dosing ml/min Est GFR ( Amer) ml/min Est GFR (Non-Af Amer) ml/min BUN/Creatinine Ratio (10-20) Glucose (70-99) mg/dl Estimat Average Glucose 97 mg/dl Hemoglobin A1c 5.0 (4.5-5.6) % Calcium (8.5-10.1) mg/dl Magnesium 2.1 (1.8-2.4) mg/dl Total Bilirubin (0.2-1) mg/dl AST 27 (15-37) U/L ALT (12-78) U/L Alkaline Phosphatase (45-117) U/L Ammonia (11-32) umol/L Total Protein (6.4-8.2) gm/dl Albumin (3.4-5.0) gm/dl Globulin (2.5-4.0) gm/dl Albumin/Globulin Ratio (0.9-2) Urine Color Urine Appearance (Clear) Urine pH (4.5-7.5) Ur Specific [place] (1.000-1.030) Urine Protein (Negative) Urine Glucose (UA) (Negative) Urine Ketones (Negative) Urine Blood (Negative) Urine Nitrite (Negative) Urine Bilirubin (Negative) Urine Urobilinogen (Negative) Ur Leukocyte Esterase (Negative) Urine WBC (Auto) (0-5) /hpf Urine RBC (Auto) (0-4) /hpf U Hyaline Cast (Auto) (0-5) /lpf U Epithel Cells (Auto) (0-5) /lpf Urine Bacteria (Auto) (Negative) Urine Yeast Nasal Screen MRSA (PCR) Valproic Acid (50-100) mcg/ml COVID-19 Eval Order SARS-CoV-2 (PCR) (Negative) Blood Type Antibody Screen 03/07/21 03/07/21 03/07/21 Range/Units 01:26 00:32 00:32 WBC (4.8-10.8) K/uL RBC (4.2-5.4) M/uL Hgb (12.0-16.0) g/dL Hct (37-47) % MCV (80-100) fL MCH (25-34) pg MCHC (32-36) g/dL RDW Std Deviation (36.4-46.3) fL RDW Coeff of Enrrique (11.5-14.5) % Plt Count (130-400) K/uL MPV (7.4-10.4) fL Immature Gran % (Auto) % Neut % (Auto) % Lymph % (Auto) % [place] % (Auto) % Eos % (Auto) % Baso % (Auto) % Neut # (Auto) (1.4-6.5) K/uL Lymph # (Auto) (1.2-3.4) K/uL [place] # (Auto) (0.11-0.59) K/uL Eos # (Auto) (0-0.5) K/uL Baso # (Auto) (0-0.2) K/uL Immature Gran # (Auto) (0.00-0.02) K/uL PT INR APTT PTT Ratio Sodium (136-145) mmol/L Potassium (3.5-5.1) mmol/L Chloride (98-107) mmol/L Carbon Dioxide (21-32) mmol/L Anion Gap (3-11) BUN (7-18) mg/dl Creatinine (0.6-1.2) mg/dl Est Cr Clr Drug Dosing ml/min Est GFR ( Amer) ml/min Est GFR (Non-Af Amer) ml/min BUN/Creatinine Ratio (10-20) Glucose (70-99) mg/dl Estimat Average Glucose mg/dl Hemoglobin A1c (4.5-5.6) % Calcium (8.5-10.1) mg/dl Magnesium (1.8-2.4) mg/dl Total Bilirubin (0.2-1) mg/dl AST (15-37) U/L ALT (12-78) U/L Alkaline Phosphatase (45-117) U/L Ammonia (11-32) umol/L Total Protein (6.4-8.2) gm/dl Albumin (3.4-5.0) gm/dl Globulin (2.5-4.0) gm/dl Albumin/Globulin Ratio (0.9-2) Urine Color Dark Yellow Urine Appearance Cloudy A (Clear) Urine pH 7.0 (4.5-7.5) Ur Specific [place] 1.024 (1.000-1.030) Urine Protein Negative (Negative) Urine Glucose (UA) Negative (Negative) Urine Ketones Trace H (Negative) Urine Blood Negative (Negative) Urine Nitrite Negative (Negative) Urine Bilirubin Negative (Negative) Urine Urobilinogen Negative (Negative) Ur Leukocyte Esterase 3+ H (Negative) Urine WBC (Auto) >30 H (0-5) /hpf Urine RBC (Auto) 0-4 (0-4) /hpf U Hyaline Cast (Auto) 0 (0-5) /lpf U Epithel Cells (Auto) 20-30 H (0-5) /lpf Urine Bacteria (Auto) 4+ H (Negative) Urine Yeast Not Reportable Nasal Screen MRSA (PCR) Valproic Acid (50-100) mcg/ml COVID-19 Eval Order SARS-CoV-2 (PCR) NEGATIVE (Negative) Blood Type O Positive Antibody Screen NEGATIVE 03/07/21 03/07/21 03/07/21 Range/Units 00:32 00:19 00:19 WBC (4.8-10.8) K/uL RBC (4.2-5.4) M/uL Hgb (12.0-16.0) g/dL Hct (37-47) % MCV (80-100) fL MCH (25-34) pg MCHC (32-36) g/dL RDW Std Deviation (36.4-46.3) fL RDW Coeff of Enrrique (11.5-14.5) % Plt Count (130-400) K/uL MPV (7.4-10.4) fL Immature Gran % (Auto) % Neut % (Auto) % Lymph % (Auto) % [place] % (Auto) % Eos % (Auto) % Baso % (Auto) % Neut # (Auto) (1.4-6.5) K/uL Lymph # (Auto) (1.2-3.4) K/uL [place] # (Auto) (0.11-0.59) K/uL Eos # (Auto) (0-0.5) K/uL Baso # (Auto) (0-0.2) K/uL Immature Gran # (Auto) (0.00-0.02) K/uL PT Cancelled INR Cancelled APTT Cancelled PTT Ratio Cancelled Sodium 141 (136-145) mmol/L Potassium (3.5-5.1) mmol/L Chloride 107 (98-107) mmol/L Carbon Dioxide 28 (21-32) mmol/L Anion Gap 5.0 (3-11) BUN 22 H (7-18) mg/dl Creatinine 0.99 (0.6-1.2) mg/dl Est Cr Clr Drug Dosing 38.1 ml/min Est GFR ( Amer) 60.6 ml/min Est GFR (Non-Af Amer) 52.3 ml/min BUN/Creatinine Ratio 22.2 H (10-20) Glucose 143 H (70-99) mg/dl Estimat Average Glucose mg/dl Hemoglobin A1c (4.5-5.6) % Calcium 8.9 (8.5-10.1) mg/dl Magnesium (1.8-2.4) mg/dl Total Bilirubin 0.7 (0.2-1) mg/dl AST (15-37) U/L ALT 30 (12-78) U/L Alkaline Phosphatase 84 (45-117) U/L Ammonia (11-32) umol/L Total Protein 6.6 (6.4-8.2) gm/dl Albumin 2.9 L (3.4-5.0) gm/dl Globulin 3.7 (2.5-4.0) gm/dl Albumin/Globulin Ratio 0.8 L (0.9-2) Urine Color Urine Appearance (Clear) Urine pH (4.5-7.5) Ur Specific [place] (1.000-1.030) Urine Protein (Negative) Urine Glucose (UA) (Negative) Urine Ketones (Negative) Urine Blood (Negative) Urine Nitrite (Negative) Urine Bilirubin (Negative) Urine Urobilinogen (Negative) Ur Leukocyte Esterase (Negative) Urine WBC (Auto) (0-5) /hpf Urine RBC (Auto) (0-4) /hpf U Hyaline Cast (Auto) (0-5) /lpf U Epithel Cells (Auto) (0-5) /lpf Urine Bacteria (Auto) (Negative) Urine Yeast Nasal Screen MRSA (PCR) Valproic Acid (50-100) mcg/ml COVID-19 Eval Order Covid19 at [facility] SARS-CoV-2 (PCR) (Negative) Blood Type Antibody Screen 03/07/21 03/07/21 Range/Units 00:19 00:19 WBC 14.08 H (4.8-10.8) K/uL RBC 4.36 (4.2-5.4) M/uL Hgb 13.8 (12.0-16.0) g/dL Hct 42.6 (37-47) % MCV 97.7 (80-100) fL MCH 31.7 (25-34) pg MCHC 32.4 (32-36) g/dL RDW Std Deviation 45.4 (36.4-46.3) fL RDW Coeff of Enrrique 12.6 (11.5-14.5) % Plt Count 229 (130-400) K/uL MPV 10.8 H (7.4-10.4) fL Immature Gran % (Auto) 0.4 % Neut % (Auto) 82.8 % Lymph % (Auto) 8.5 % [place] % (Auto) 8.1 % Eos % (Auto) 0.1 % Baso % (Auto) 0.1 % Neut # (Auto) 11.67 H (1.4-6.5) K/uL Lymph # (Auto) 1.19 L (1.2-3.4) K/uL [place] # (Auto) 1.14 H (0.11-0.59) K/uL Eos # (Auto) 0.01 (0-0.5) K/uL Baso # (Auto) 0.02 (0-0.2) K/uL Immature Gran # (Auto) 0.05 H (0.00-0.02) K/uL PT INR APTT PTT Ratio Sodium (136-145) mmol/L Potassium (3.5-5.1) mmol/L Chloride (98-107) mmol/L Carbon Dioxide (21-32) mmol/L Anion Gap (3-11) BUN (7-18) mg/dl Creatinine (0.6-1.2) mg/dl Est Cr Clr Drug Dosing ml/min Est GFR ( Amer) ml/min Est GFR (Non-Af Amer) ml/min BUN/Creatinine Ratio (10-20) Glucose (70-99) mg/dl Estimat Average Glucose mg/dl Hemoglobin A1c (4.5-5.6) % Calcium (8.5-10.1) mg/dl Magnesium (1.8-2.4) mg/dl Total Bilirubin (0.2-1) mg/dl AST (15-37) U/L ALT (12-78) U/L Alkaline Phosphatase (45-117) U/L Ammonia (11-32) umol/L Total Protein (6.4-8.2) gm/dl Albumin (3.4-5.0) gm/dl Globulin (2.5-4.0) gm/dl Albumin/Globulin Ratio (0.9-2) Urine Color Urine Appearance (Clear) Urine pH (4.5-7.5) Ur Specific [place] (1.000-1.030) Urine Protein (Negative) Urine Glucose (UA) (Negative) Urine Ketones (Negative) Urine Blood (Negative) Urine Nitrite (Negative) Urine Bilirubin (Negative) Urine Urobilinogen (Negative) Ur Leukocyte Esterase (Negative) Urine WBC (Auto) (0-5) /hpf Urine RBC (Auto) (0-4) /hpf U Hyaline Cast (Auto) (0-5) /lpf U Epithel Cells (Auto) (0-5) /lpf Urine Bacteria (Auto) (Negative) Urine Yeast Nasal Screen MRSA (PCR) Valproic Acid (50-100) mcg/ml COVID-19 Eval Order SARS-CoV-2 (PCR) (Negative) Blood Type Cancelled Antibody Screen Cancelled Diagnostic Findings Patient: STEPHEN BLACKWELL Date: 03/07/21MR#: [id number]: [address] [place], [place] [address]Acct ID:[id number]: [facility] Date: [address] [place] [address] Zip: [place], [place] [address]Xtu: [id number]: 3ESex: FRoom/Bed: [address] Phy: Chevy Jones, MDDiagnosis: LEFT HIP FXPri Phy: [facility] Date: 03/06/21Fam Phy:Interpreting Phy: Shailesh BentonAdmit Phy: Tanner Becerra MD Ordering Phy: Chano Logan M.D. cc: ~ XR hip LT min 2V HISTORY: 85 years-old Female left hip pain acute left hip pain status post fall COMPARISON: None TECHNIQUE: 2 views of the left hip FINDINGS: There is an acute subcapital fracture of the left femur with mild impaction and approximately 2.5 cm superior lateral displacement. Moderate soft tissue swelling. Moderate left hip osteoarthritis with demineralized appearance of the bones. IMPRESSION: Acute impacted and displaced subcapital fracture of the left femur.
--- NOTE | 2021-03-07 08:31 | Electrocardiogram Report ---
Test Reason : Blood Pressure : / mmHG Vent. Rate : 096 BPM Atrial Rate : 092 BPM P-R Int : 000 ms QRS Dur : 094 ms QT Int : 576 ms P-R-T Axes : 000 -33 052 degrees QTc Int : 727 ms Poor data quality, interpretation may be adversely affected Sinus rhythm Left axis deviation Incomplete right bundle branch block Poor R wave progression, consider anterior IA vs. lead placement vs. LVH Abnormal ECG When compared with ECG of 28-OCT-2020 10:37, Abnormal right superior axis deviation BY 44 BPM Otherwise no significant change Confirmed by Marquis Rothman ([id number]) on 03/07/2021 8:31:19 AM Referred By: [facility] Confirmed By:Marquis Rothman
[2021-03-07] MEDS: MULTIVITAMIN TAB PO SCH (09:02)
[2021-03-07] MEDS: CHOLECALCIFEROL 1,000 UNITS 25 MCG TAB PO SCH (09:02)
[2021-03-07] MEDS: OLANZapine 5 MG TABLET PO SCH ×2 (09:02→20:44)
[2021-03-07] MEDS: DIVALPROEX DELAY RELEASE 125 MG TABEC PO SCH ×2 (09:02→20:44)
[2021-03-07] MEDS: DONEPEZIL HCL 10 MG TAB PO SCH (09:02)
[2021-03-07] MEDS ORDERED: PNEUMOCOCCAL POLYSACCHARIDES 25 MCG/0.5 ML VIAL/SYR IM ONE (10:00)
--- NOTE | 2021-03-07 14:44 | Anesthesiology Consultation ---
Date of Service March 07, 2021 Assessment & Plan (1) Encounter for pre-operative examination: Chart Review Chart Review: Acceptable Risk for Surgery History Surgery Operation Date: 03/07/21 09:10 Proposed Procedures p Bipolar Hip Prosthesis - Nile Peres DO Height/Weight Height: 5 ft 5 in Weight: 64.4 kg Allergies Allergy/AdvReac Type Severity Reaction Status Date / Time No Known Allergies Allergy Verified 03/07/21 01:31 Medications Home Medications Medication Instructions Recorded Confirmed Last Taken vitamins A,C,Q-dwyv-bwitwz 14,320 1 cap PO AMHS 02/09/20 03/07/21 10/28/20 08:00 unit-226 mg-200 unit capsule (PreserVision AREDS) lorazepam 0.5 mg tablet 0.25 mg PO TID 10/28/20 03/07/21 10/28/20 08:00 acetaminophen 325 mg tablet 650 mg PO Q4H PRN MDD 3 GRAMS/24 03/07/21 03/07/21 Unknown (Tylenol) HOURS cholecalciferol (vitamin D3) 10 10 mcg PO QAM 03/07/21 03/07/21 Unknown mcg/mL (400 unit/mL) oral drops divalproex 125 mg tablet,delayed 125 mg PO BID 03/07/21 03/07/21 Unknown release (Depakote) donepezil 5 mg tablet (Aricept) 10 mg PO QAM 03/07/21 03/07/21 Unknown melatonin 3 mg tablet 3 mg PO HS 03/07/21 03/07/21 Unknown mirtazapine 15 mg tablet (Remeron) 15 mg PO HS 03/07/21 03/07/21 Unknown multivitamin 1 tab PO QAM 03/07/21 03/07/21 Unknown olanzapine 10 mg tablet 5 mg PO BID 03/07/21 03/07/21 Unknown sennosides 8.6 mg tablet (senna) 8.6 mg PO HS 03/07/21 03/07/21 Unknown Active Medications Generic Name Dose Route Start Last Admin Trade Name Freq PRN Reason Stop Dose Admin Divalproex Sodium 125 mg 03/07/21 09:00 03/07/21 09:02 Divalproex Delay Release 125 Mg Tabec PO 04/06/21 08:59 125 mg BID ALTAGRACIA Administration Donepezil HCl 10 mg 03/07/21 09:00 03/07/21 09:02 Donepezil Hcl 10 Mg Tab PO 04/06/21 08:59 10 mg QAM ALTAGRACIA Administration Sodium Chloride 1,000 mls @ 75 mls/hr 03/07/21 04:15 03/07/21 05:28 1/2 Nss IV 04/06/21 04:14 75 mls/hr .[id number] ALTAGRACIA Administration Multivitamins 1 tab 03/07/21 09:00 03/07/21 09:02 Multivitamin Tab PO 04/06/21 08:59 1 tab QAM ALTAGRACIA Administration Olanzapine 5 mg 03/07/21 09:00 03/07/21 09:02 Olanzapine 5 Mg Tablet PO 04/06/21 08:59 5 mg BID ALTAGRACIA Administration Vitamin D 500 units 03/07/21 09:00 03/07/21 09:02 Cholecalciferol 1,000 Units 25 Mcg Tab PO 04/06/21 08:59 500 units QAM ALTAGRACIA Administration Past Medical History Medical History Dementia No pertinent family history Past Surgical History Surgical History No pertinent past surgical history Social History Smoking Status: Unknown if ever smoked Hx Alcohol Use: No (unknown; pt unable to answer) Hx Substance Use: No (unknown; pt unable to answer) Physical Exam Vital Signs Last Vital Signs Temp 36.9 C 03/07/21 13:44 Pulse 90 03/07/21 13:44 Resp 16 03/07/21 13:44 BP 181/90 H 03/07/21 13:44 Pulse Ox 91 03/07/21 13:44 Testing Laboratory Results 03/07/21 00:19 03/07/21 01:26 PT 10.7 Seconds (9.0-12.0) 03/07/21 01:26 INR 1.1 (0.9-1.1) 03/07/21 01:26 APTT 26.9 Seconds (21.0-31.0) 03/07/21 01:26 Hemoglobin A1c 5.0 % (4.5-5.6) 03/07/21 01:27 Urine Color Dark Yellow 03/07/21 00:32 Urine Appearance Cloudy (Clear) A 03/07/21 00:32 Urine pH 7.0 (4.5-7.5) 03/07/21 00:32 Ur Specific [place] 1.024 (1.000-1.030) 03/07/21 00:32 Urine Protein Negative (Negative) 03/07/21 00:32 Urine Glucose (UA) Negative (Negative) 03/07/21 00:32 Urine Ketones Trace (Negative) H 03/07/21 00:32 Urine Nitrite Negative (Negative) 03/07/21 00:32 Ur Leukocyte Esterase 3+ (Negative) H 03/07/21 00:32 Urine WBC (Auto) >30 /hpf (0-5) H 03/07/21 00:32 Urine RBC (Auto) 0-4 /hpf (0-4) 03/07/21 00:32 U Hyaline Cast (Auto) 0 /lpf (0-5) 03/07/21 00:32 U Epithel Cells (Auto) 20-30 /lpf (0-5) H 03/07/21 00:32 Urine Bacteria (Auto) 4+ (Negative) H 03/07/21 00:32 Blood Type O Positive 03/07/21 01:26 Antibody Screen NEGATIVE 03/07/21 01:26 Laboratory Tests 03/07/21 00:19 Creatinine 0.99 Electrocardiogram Date: 03/07/21 Findings: + NSR @ (93), + poor R wave progression and + RBBB (incomplete)
[2021-03-07] MEDS ORDERED: PROPOFOL IV EMULSION 10 MG/ML 20 ML VIAL IV ONE (14:47)
[2021-03-07] MEDS ORDERED: ONDANSETRON INJ 2 MG/ML 2 ML VIAL ONE (14:47)
[2021-03-07] MEDS ORDERED: LIDOCAINE 2% 2 ML VIAL/AMP(20MG/ML) INFIL ONE (14:47)
[2021-03-07] MEDS ORDERED: fentaNYL citrate 100 MCG/2 ML VIAL ONE (14:48)
--- NOTE | 2021-03-07 14:49 | History & Physical Bridge Note ---
Date of Service March 07, 2021 History & Physical Bridge Note I have examined the patient, reviewed the History & Physical and in the interval since the performance of the History & Physical I have noted the following changes of clinical significance: no changes noted
[2021-03-07] MEDS ORDERED: ATROPINE SULFATE 0.1 MG/ML 10ML SYR IV PRN (14:52)
[2021-03-07] MEDS ORDERED: HYDROmorphone INJ 1 MG/ML SYRINGE IV PRN (14:52)
[2021-03-07] MEDS ORDERED: ONDANSETRON INJ 2 MG/ML 2 ML VIAL IV PRN (14:52)
[2021-03-07] MEDS ORDERED: ePHEDrine sulfate 50 MG/ML AMP IV PRN (14:52)
[2021-03-07] MEDS: LACTATED RINGER'S 1,000 ML IV SCH (14:55)
[2021-03-07] MEDS ORDERED: ROPIVACAINE 0.5% HCL/PF 150 MG, BUPIVACAINE 0.75% MPF 20 ML, EPINEPHrine 0.15 MG, Ketor... INFIL STA (14:59)
[2021-03-07] MEDS ORDERED: ceFAZolin 1000MG 1,000 MG/7.5 ML SYR IV STA (15:00)
[2021-03-07] MEDS ORDERED: PHENYLEPHRINE HCL 10 MG/ML VIAL ONE (15:31)
[2021-03-07] MEDS ORDERED: ePHEDrine sulfate 50 MG/ML AMP ONE (15:42)
--- NOTE | 2021-03-07 16:22 | Post Operative Brief Note ---
Immediate Post Op Note v1 Date of Surgery March 07, 2021 Pre & Post Diagnosis Operation Date: 03/07/21 09:10 Pre-Op Diagnosis: Left Hip Fracture Post-Op Diagnosis: Left Hip Fracture I identified the patient and participated in the time-out.: Yes Procedure Operation Date: 03/07/21 09:10 Actual Procedures p Left Hip Hemiarthroplasty, Uncemented(Left) - Nile Peres DO Surgeon Nile Peres DO Yarn Dumper Salvador Banegas Estimated Blood Loss 150 Findings Consistent with Post-Op Diagnosis Fluids See anesthesia report Drains Hernandez Catheter (Patient had hernandez catheter in place upon arrival to operating room. Anesthesia to monitor output during procedure) Anesthesia Type Spinal MAC Complications none Disposition Disposition: Recovery Room Overlapping Procedure I was present for: the critical portions of procedure. I was immediately available: during the entire case. Back up surgeon: was not required during procedure.
--- NOTE | 2021-03-07 16:24 | Operative Report ---
Post Operative Report Pre & Post Diagnosis Operation Date: 03/07/21 09:10 Pre-Op Diagnosis: Left Hip Fracture Post-Op Diagnosis: Left Hip Fracture I identified the patient and participated in the time-out.: Yes Procedure Operation Date: 03/07/21 09:10 Actual Procedures p Left Hip Hemiarthroplasty, Uncemented(Left) - Nile Peres DO Surgeon Nile Peres DO Group Contract Analyst Salvador Banegas Estimated Blood Loss 150 Findings Consistent with Post-Op Diagnosis Fluids See anesthesia report Specimens Femoral head Anesthesia Type Spinal MAC Complications none Disposition Disposition: Recovery Room Indications The patient is a 85-year-old female with displaced left femoral neck fracture sustained after a fall from standing height. The patient was medically stabilized on 03/07/2021. I indicated the patient for left hip hemiarthroplasty. The patient's who is the POA was informed of the risks and benefits of surgery, which include but not limited to infection, bleeding, blood clots, damage to nerves, vessels, bone and soft tissue, dislocation, leg length discrepancy, need for additional surgery and . The patient's chose to move forward with surgical intervention and informed consent was obtained. Description of Procedure COMPONENTS USED: Stef Biomet hip system: Femur size 6 extended, femoral head 28-3.5, 47 Shell. Following induction of adequate spinal anesthesia, the patient was transferred to the OR table and placed in the lateral decubitus position with right hip down. The left hip was prepped and draped in usual sterile manner. A timeout was performed, patient identified and site catarina verified. Appropriate IV antibiotics were given. A posterior lateral incision was made. Subcutaneous tissue was sharply dissected down to the fascial layer. Electro cautery was used for hemostasis. Fascia was incised throughout the length of the wound and the piriformis was identified. A #1 Vicryl suture was used to tag the piriformis. The short external rotators were divided from the posterior aspect of the femur and a capsulotomy was performed. A second #1 Vicryl suture was used to tag the capsule. Next, I turned my attention to the femoral neck fracture. The fracture was relatively high on the calcar and decision was made to proceed with the oscillating saw and create the calcar osteotomy. This bone fragment was removed. Following this, tenaculum and cob elevator was utilized to remove the femoral head. The head was measured on the back table and the 47 mm femoral head was chosen as the size to be used. Next, attention was turned to the acetabulum which was found to have no significant arthritis. All bony debris was removed. Next, attention was then turned to the proximal femur where box osteotome was used to gain access to the femoral canal. A canal finder and power lateralizing reamer were utilized to further open. Sequential raspings were taken up to a size 6, which was sunk completely and trial reduction was carried out and a 28-3.5 mm femoral head was chosen the size to be used with the 47 bipolar cup. Following a trial reduction, the hip was found to be stable to 45 degrees of internal rotation and 90 degrees of flexion with equal leg lengths. The calcar reamer was utilized to smooth the calcar and the instruments and trial components were removed. The hip was thoroughly irrigated with pulsatile sterile saline solution with bacitracin. The size 6 Avenir stem was carefully impacted into place with appropriate version. The calcar was carefully assessed and found to be intact and without fractures. Following insertion of final stem component another trial reduction was carried out and again and a 28-3.5 mm femoral head with a 47 mm shell was chosen as the size to be used. The final head and neck was impacted into position and the hip was reduced and stability assess and was found to be stable to 45 degrees of internal rotation and 90 degrees of flexion. A 3-minute Betadine soak was performed at this time. The wound was irrigated with copious amounts of sterile saline solution with bacitracin. Baylee-incisional soft tissue was injected with the [place] [employer] which includes a combination of Ropivicaine 0.5% 150mg, Bupivicaine 0.5%/Epinephrine 1:200,000 30ml, Toradol 30mg, Dexamethasone 4mg, Ketamine 10mg, Clonidine 100mcg and NSS 30ml solution. The capsule was repaired using #5 fiberwire sutures through drill holes. Following this, the short external rotators were reapproximated to the posterior aspect of the femur also through drill holes and these were tied. Once again the wound was copiously irrigated with sterile saline solution with bacitracin. Fascia was closed using #1 Vicryl [id number] sutures, subcutaneous tissue was closed using 2-0 vicryl, and skin was closed with seven. A sterile dry dressing was applied which included armando incisional VAC. The patient tolerated the procedure well and was taken to recovery room in stable condition. Due to the complex nature of the procedure, the entire surgery was performed with the operational assistance of Salvador Banegas PA-C. The assistant child care teacher, under direct supervision, was involved in the actual performance of all aspects of the surgical procedure including patient positioning, hemostasis, tissue retraction, instrument management and wound closure. I attest to the content of the Intraoperative Record and any orders documented therein. Any exceptions are noted below.
--- NOTE | 2021-03-07 16:44 | Hospitalist Progress Note ---
Date of Service March 07, 2021 Assessment & Plan (1) Hip fracture, left: Plan: Left hip fracture Osteoporotic left femur fracture in the setting of ground level fall S/P left hip hemiarthroplasty POD#0 Appreciate orthopedics input Fall precautions PT OT as able Pain control Bowel regimen to prevent constipation Monitor for postop anemia Prolonged QTC Hold donepezil Monitor EKG Abnormal UA R/O UTI Urine culture pending Continue Rocephin empirically Dementia At baseline Continue home meds Past tobacco abuse DVT Px: SCDs Re:surgery Code Status DNI/DNR Admission and Anticipated Discharge Date Admission Date: March 07, 2021 Subjective Patient is seen and examined at bedside Unable to obtain any meaningful history given dementia No distress on exam Plan for left hip surgery today Review of Systems Review of Systems: Unobtainable due to cognitive status Physical Exam Physical Exam: Physical Exam: Vitals signs as noted above General Appearance:Moderately built and nourished, no apparent distress Head: normocephalic, Atraumatic Eyes: normal inspection, EOMI Neck: supple, Trachea midline Respiratory/Chest: Normal breath sounds, CTA Cardiovascular: S1, S2, No murmur Abdomen/GI:Soft, Non tender, Bowel sounds present Extremities/Musculoskeletal:normal inspection, left lower extremity externally rotated Neurologic/Psych: Unable to perform complete neurological exam, dementia Skin: normal color, warm Results & Data Results & Data ([facility]) Vital Signs (Past 12 Hours) Vital Signs Temp Pulse Resp BP Pulse Ox 03/07/21 14:15 36.9 C 86 20 156/85 H 92 03/07/21 13:44 36.9 C 90 16 181/90 H 91 03/07/21 07:21 36.4 C L 91 H 16 156/90 H 93 03/07/21 04:55 36.9 C 93 H 18 174/73 H 93 Laboratory Results Short CBC 03/07/21 Range/Units 00:19 WBC 14.08 H (4.8-10.8) K/uL Hgb 13.8 (12.0-16.0) g/dL Hct 42.6 (37-47) % Plt Count 229 (130-400) K/uL BMP 03/07/21 03/07/21 00:19 01:26 Sodium 141 Potassium 4.0 Chloride 107 Carbon Dioxide 28 BUN 22 H Creatinine 0.99 Glucose 143 H Calcium 8.9 Liver Function 03/07/21 03/07/21 Range/Units 00:19 01:26 Total Bilirubin 0.7 (0.2-1) mg/dl AST 27 (15-37) U/L ALT 30 (12-78) U/L Alkaline Phosphatase 84 (45-117) U/L Albumin 2.9 L (3.4-5.0) gm/dl Urine 03/07/21 Range/Units 00:32 Urine Color Dark Yellow Urine Appearance Cloudy A (Clear) Urine pH 7.0 (4.5-7.5) Ur Specific [place] 1.024 (1.000-1.030) Urine Protein Negative (Negative) Urine Glucose (UA) Negative (Negative) (1) Hip fracture, left Encounter type: initial encounter Fracture type: closed Qualified Code(s): S72.002A - Fracture of unspecified part of neck of left femur, initial encounter for closed fracture
[2021-03-07] MEDS ORDERED: POLYETHYLENE (MIRALAX) 17 GM PACK PO PRN (16:47)
[2021-03-07] MEDS ORDERED: DOCUSATE SODIUM 100 MG CAP PO PRN (16:47)
--- NOTE | 2021-03-07 16:57 | Orthopedic Progress Note ---
Date of Service March 07, 2021 Assessment & Plan (1) Hip fracture, left: Plan: Status post left hip hemiarthroplasty -Ancef x24 -DVT prophylaxis: SCDs, teds, Lovenox daily -Weight-bear as tolerates left lower extremity -PT/OT -Postoperative x-ray left hip demonstrates well aligned well fixed prothesis without fracture/dislocation -A.m. labs Admission and Anticipated Discharge Date Admission Date: March 07, 2021 Subjective Post Operative Progress Note Patient seen in PACU, resting comfortably, no acute issues. Review of Systems Review of Systems: Unobtainable due to cognitive status Physical Exam Physical Exam: Left lower extremity physical exam limited, +2 dorsalis pedis pulse, compartment soft compressible, dressing clean dry and intact Results & Data ([facility]) Vital Signs (Past 12 Hours) Vital Signs Temp Pulse Resp BP Pulse Ox 03/07/21 14:15 36.9 C 86 20 156/85 H 92 03/07/21 13:44 36.9 C 90 16 181/90 H 91 03/07/21 07:21 36.4 C L 91 H 16 156/90 H 93 (1) Hip fracture, left Encounter type: initial encounter Fracture type: closed Qualified Code(s): S72.002A - Fracture of unspecified part of neck of left femur, initial encounter for closed fracture
--- NOTE | 2021-03-07 17:19 | Anesthesiology Progress Note ---
Date of Service March 07, 2021 Anesthesia Post Procedure Vital Signs Vital Signs: Temp Pulse Pulse Pulse Resp BP BP 03/07/21 17:04 85 15 96/62 L 03/07/21 16:54 86 14 104/60 03/07/21 16:44 36.1 C L 89 15 94/61 L 03/07/21 14:15 36.9 C 86 20 156/85 H 03/07/21 13:44 36.9 C 90 16 181/90 H 03/07/21 07:21 36.4 C L 91 H 16 156/90 H 03/07/21 04:55 36.9 C 93 H 18 174/73 H 03/07/21 04:04 94 H 16 121/71 03/07/21 02:48 92 H 18 03/07/21 00:30 90 18 03/06/21 23:47 36.8 C 90 18 143/78 H BP Pulse Ox 03/07/21 17:04 97 03/07/21 16:54 96 03/07/21 16:44 89 L 03/07/21 14:15 92 03/07/21 13:44 91 03/07/21 07:21 93 03/07/21 04:55 93 03/07/21 04:04 94 03/07/21 02:48 125/91 93 03/07/21 00:30 154/81 H 92 03/06/21 23:47 93 Transfer of Care Handoff Completed per policy Notes Mental Status: alert / awake / arousable Patient Amnestic to Procedure: Yes Nausea / Vomiting: adequately controlled Pain: adequately controlled Airway Patency, RR, SpO2: stable & adequate BP & HR: stable & adequate Hydration State: stable & adequate Neuraxial Anesthesia: was administered and sensory block is resolving Anesthetic Complications: no major complications apparent and Pt Satisfied with anesthetic care
--- NOTE | 2021-03-07 17:54 | XRay Report ---
XR hip LT min 2V CLINICAL HISTORY: Post-Operative implant position COMPARISON: Left hip radiographs March 06, 2021. FINDINGS: Alignment of the left hip arthroplasty is anatomic. There is no periprosthetic fracture or unexpected radiopaque foreign body. There are skin seven. IMPRESSION: Expected findings following left hip arthroplasty. ACT 112: Negative or not required by law. Electronically signed by: Yadiel Garvin M.D. 03/07/2021 5:52 PM
[2021-03-07] MEDS: MELATONIN 3 MG TAB PO SCH (20:43)
[2021-03-07] MEDS: SENNA 8.6 MG TAB PO SCH (20:44)
[2021-03-07] MEDS: ceFAZolin 1000MG 1,000 MG/7.5 ML SYR IV SCH (22:05)
[2021-03-08] MEDS ORDERED: cefTRIAXone SODIUM 1,000 MG in DEXTROSE 5% 50 ML IV SCH (06:00)
[2021-03-08] MEDS ORDERED: ROPIVACAINE 0.5% HCL/PF 150 MG, BUPIVACAINE 0.75% MPF 20 ML, EPINEPHrine 0.15 MG, Ketor... INFIL SCH (06:00)
[2021-03-08] MEDS: ceFAZolin 1000MG 1,000 MG/7.5 ML SYR IV SCH (06:14)
[2021-03-08 07:43] LABS: BUN Creatinine Ratio 25.5 (10-20); Calcium 8.4 mg/dl (8.5-10.1); Creatinine Clr Calc Pharmacy 43.3 ml/min; Est GFR (African American) 70.9 ml/min; Est GFR (Non-African American) 61.2 ml/min; Potassium 4.2 mmol/L (3.5-5.1)
[2021-03-08 07:59] LABS: Basophils # (auto) 0.01 K/uL (0-0.2); Basophils % (auto) 0.1 %; Eosinophils # (auto) 0.02 K/uL (0-0.5); Eosinophils % (auto) 0.1 %; Hemoglobin 12.8 g/dL (12.0-16.0); Immature Granulocytes # (auto) 0.04 K/uL (0.00-0.02); Immature Granulocytes % (auto) 0.2 %; Lymphocytes # (auto) 0.93 K/uL (1.2-3.4); Lymphocytes % (auto) 5.7 %; Mean Corpuscular Volume 96.9 fL (80-100); Mean Platelet Volume 10.8 fL (7.4-10.4); Monocytes # (auto) 1.84 K/uL (0.11-0.59); Monocytes % (auto) 11.3 %; Neutrophils # (auto) 13.38 K/uL (1.4-6.5); Neutrophils % (auto) 82.6 %; Platelet Count 170 K/uL (130-400); RDW Coefficient of Variation 12.8 % (11.5-14.5); RDW Standard Deviation 45.5 fL (36.4-46.3); Red Blood Count 4.13 M/uL (4.2-5.4); White Blood Count 16.22 K/uL (4.8-10.8)
--- NOTE | 2021-03-08 09:08 | Orthopedic Progress Note ---
Date of Service March 08, 2021 Assessment & Plan (1) Hip fracture, left: Plan: Status post left hip hemiarthroplasty POD#1 -Ancef x24 -DVT prophylaxis: SCDs, teds, Lovenox daily -Weight-bear as tolerates left lower extremity -PT/OT -Postoperative x-ray left hip demonstrates well aligned well fixed prothesis without fracture/dislocation -A.m. labs as above, hgb 12.8 Admission and Anticipated Discharge Date Admission Date: March 07, 2021 Subjective Post Operative Progress Note Patient seen resting in bed, baseline, no acute issues overnight Review of Systems Review of Systems: All systems reviewed & are unremarkable except as noted in HPI & below Constitutional: as per Subjective / HPI Physical Exam Physical Exam: Limited exam +2 DP pulse, compartments soft NT, dressing CDI Results & Data ([facility]) Vital Signs (Past 12 Hours) Vital Signs Temp Pulse Resp BP BP Pulse Ox 03/08/21 07:00 37.2 C 92 H 20 121/73 94 03/08/21 03:26 36.7 C 95 H 17 144/89 H 92 03/07/21 23:32 36.3 C L 82 18 140/84 95 Laboratory Results 03/08/21 03/08/21 03/08/21 Range/Units 07:51 06:53 06:53 WBC 16.22 H Cancelled RBC 4.13 L Cancelled Hgb 12.8 Cancelled Hct 40.0 Cancelled MCV 96.9 Cancelled MCH 31.0 Cancelled MCHC 32.0 Cancelled RDW Std Deviation 45.5 Cancelled RDW Coeff of Enrrique 12.8 Cancelled Plt Count 170 Cancelled MPV 10.8 H Cancelled Immature Gran % (Auto) 0.2 Cancelled Neut % (Auto) 82.6 Cancelled Lymph % (Auto) 5.7 Cancelled [place] % (Auto) 11.3 Cancelled Eos % (Auto) 0.1 Cancelled Baso % (Auto) 0.1 Cancelled Neut # (Auto) 13.38 H Cancelled Lymph # (Auto) 0.93 L Cancelled [place] # (Auto) 1.84 H Cancelled Eos # (Auto) 0.02 Cancelled Baso # (Auto) 0.01 Cancelled Immature Gran # (Auto) 0.04 H Cancelled Absolute Nucleated RBC Cancelled Nucleated RBC % (auto) Cancelled Neutrophils % (Manual) Cancelled Band Neutrophils % Cancelled Lymphocytes % (Manual) Cancelled Prolymphocyte % Cancelled Reactive Lymphs % (Man) Cancelled Monocytes % (Manual) Cancelled Eosinophils % (Manual) Cancelled Basophils % (Manual) Cancelled Metamyelocytes % (Man) Cancelled Myelocytes % (Man) Cancelled Promyelocytes % (Man) Cancelled Blast Cells % (Manual) Cancelled Plasma Cell % (Manual) Cancelled Other Cells % Cancelled Nucleated RBC % Cancelled Neutrophils # (Manual) Cancelled Band Neutrophils # Cancelled Total Absolute Neuts Cancelled Lymphocytes # (Manual) Cancelled Prolymphocyte # Cancelled Reactive Lymphs # Cancelled Total Abs Lymphocytes Cancelled Monocytes # (Manual) Cancelled Eosinophils # (Manual) Cancelled Basophils # (Manual) Cancelled Metamyelocytes # (Man) Cancelled Myelocytes # (Manual) Cancelled Promyelocytes # (Man) Cancelled Blast Cells # (Man) Cancelled Plasma Cell # (Manual) Cancelled Other Cells # Cancelled Nucleated RBCs # (Man) Cancelled Hypersegmented Neuts Cancelled Hyposegmented Neuts Cancelled Hypogranular Neuts Cancelled Large Granular Lymphs Cancelled # Lrg Granular Lymphs Cancelled Hairy Cells Cancelled Smudge Cells Cancelled Toxic Granulation Cancelled Toxic Vacuolation Cancelled Dohle Bodies Cancelled Antonella Rods Cancelled Platelet Estimate Cancelled Hypogranular Platelets Cancelled Clumped Platelets Cancelled Giant Platelets Cancelled Platelet Satelliting Cancelled RBC Morphology Cancelled Polychromasia Cancelled Hypochromasia Cancelled Poikilocytosis Cancelled Basophilic Stippling Cancelled Anisocytosis Cancelled Microcytosis Cancelled Macrocytosis Cancelled Spherocytes Cancelled Pappenheimer Bodies Cancelled Sickle Cells Cancelled Target Cells Cancelled Tear Drop Cells Cancelled Ovalocytes Cancelled Stomatocytes Cancelled [place] Bodies Cancelled Echinocytes Cancelled Acanthocytes (Spur) Cancelled Rouleaux Cancelled RBC Agglutinates Cancelled Schistocytes Cancelled RBC Morph Comment Cancelled Sezary Cell Cancelled Sodium 138 (136-145) mmol/L Potassium 4.2 (3.5-5.1) mmol/L Chloride 105 (98-107) mmol/L Carbon Dioxide 27 (21-32) mmol/L Anion Gap 6.0 (3-11) BUN 22 H (7-18) mg/dl Creatinine 0.87 (0.6-1.2) mg/dl Est Cr Clr Drug Dosing 43.3 ml/min Est GFR ( Amer) 70.9 ml/min Est GFR (Non-Af Amer) 61.2 ml/min BUN/Creatinine Ratio 25.5 H (10-20) Glucose 103 H (70-99) mg/dl Calcium 8.4 L (8.5-10.1) mg/dl (1) Hip fracture, left Encounter type: initial encounter Fracture type: closed Qualified Code(s): S72.002A - Fracture of unspecified part of neck of left femur, initial encounter for closed fracture
[2021-03-08] MEDS: DIVALPROEX DELAY RELEASE 125 MG TABEC PO SCH ×2 (10:06→19:52)
[2021-03-08] MEDS: OLANZapine 5 MG TABLET PO SCH ×2 (10:07→19:51)
[2021-03-08] MEDS: CHOLECALCIFEROL 1,000 UNITS 25 MCG TAB PO SCH (10:07)
[2021-03-08] MEDS: MULTIVITAMIN TAB PO SCH (10:08)
[2021-03-08] MEDS: DONEPEZIL HCL 10 MG TAB PO SCH (10:08)
[2021-03-08] MEDS: ENOXAPARIN INJ 40 MG/0.4 ML SYR SQ SCH (10:09)
[2021-03-08] MEDS: LACTATED RINGER'S 1,000 ML IV SCH (14:35)
--- NOTE | 2021-03-08 16:38 | Hospitalist Progress Note ---
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 S/P left hip hemiarthroplasty POD#1 Appreciate orthopedics input Fall precautions PT OT as able Pain control Bowel regimen to prevent constipation Monitor for postop anemia on Lovenox for DVT Px Weightbearing as tolerated left lower extremity Leukocytosis likely reactive Prolonged QTC Hold donepezil Monitor EKG Abnormal UA Ruled out UTI Urine culture: Alpha strep, not Enterococcus Received Rocephin empirically Dementia At baseline Continue home meds Past tobacco abuse DVT Px: SCDs Re:surgery Code Status DNI/DNR Admission and Anticipated Discharge Date Admission Date: March 07, 2021 Subjective Patient is seen and examined at bedside No distress on exam during my encounter History unreliable secondary to dementia Did not have breakfast but took pills Seem to have no significant pain at surgical site Review of Systems Review of Systems: All systems reviewed & are unremarkable except as noted in Subjective Physical Exam Physical Exam: Physical Exam: Vitals signs as noted above General Appearance:Moderately built and nourished, no apparent distress Head: normocephalic, Atraumatic Eyes: normal inspection, EOMI Neck: supple, Trachea midline Respiratory/Chest: Normal breath sounds, CTA Cardiovascular: S1, S2, No murmur Abdomen/GI:Soft, Non tender, Bowel sounds present Extremities/Musculoskeletal:normal inspection, left lower extremity surgical site in dressing Neurologic/Psych: Unable to perform complete neurological exam, dementia Skin: normal color, warm Results & Data Results & Data ([facility]) Vital Signs (Past 12 Hours) Vital Signs Temp Pulse Resp BP Pulse Ox 03/08/21 15:00 36.6 C 79 20 101/63 98 03/08/21 11:00 37.1 C 87 20 146/66 H 94 03/08/21 07:00 37.2 C 92 H 20 121/73 94 Laboratory Results Short CBC 03/08/21 03/08/21 Range/Units 06:53 07:51 WBC Cancelled 16.22 H Hgb Cancelled 12.8 Hct Cancelled 40.0 Plt Count Cancelled 170 BMP 03/08/21 06:53 Sodium 138 Potassium 4.2 Chloride 105 Carbon Dioxide 27 BUN 22 H Creatinine 0.87 Glucose 103 H Calcium 8.4 L (1) Hip fracture, left Encounter type: initial encounter Fracture type: closed Qualified Code(s): S72.002A - Fracture of unspecified part of neck of left femur, initial encounter for closed fracture
[2021-03-08] MEDS: SENNA 8.6 MG TAB PO SCH (19:51)
[2021-03-08] MEDS: MELATONIN 3 MG TAB PO SCH (19:51)
[2021-03-09 08:16] LABS: Hemoglobin 11.4 g/dL (12.0-16.0); Mean Corpuscular Hemoglobin 31.3 pg (25-34); Mean Corpuscular Hgb Conc 31.7 g/dL (32-36); Mean Corpuscular Volume 98.9 fL (80-100); Mean Platelet Volume 10.9 fL (7.4-10.4); Platelet Count 179 K/uL (130-400); RDW Coefficient of Variation 12.8 % (11.5-14.5); RDW Standard Deviation 46.7 fL (36.4-46.3); Red Blood Count 3.64 M/uL (4.2-5.4); White Blood Count 10.33 K/uL (4.8-10.8)
[2021-03-09 08:46] LABS: BUN Creatinine Ratio 40.5 (10-20); Calcium 8.4 mg/dl (8.5-10.1); Creatinine Clr Calc Pharmacy 58.9 ml/min; Est GFR (Non-African American) 81.9 ml/min; Potassium 4.5 mmol/L (3.5-5.1)
[2021-03-09] MEDS: ENOXAPARIN INJ 40 MG/0.4 ML SYR SQ SCH (10:13)
[2021-03-09] MEDS: CHOLECALCIFEROL 1,000 UNITS 25 MCG TAB PO SCH (10:14)
[2021-03-09] MEDS: MULTIVITAMIN TAB PO SCH (10:15)
[2021-03-09] MEDS: DONEPEZIL HCL 10 MG TAB PO SCH (10:16)
[2021-03-09] MEDS: DIVALPROEX DELAY RELEASE 125 MG TABEC PO SCH ×2 (10:16→19:37)
[2021-03-09] MEDS: OLANZapine 5 MG TABLET PO SCH ×2 (10:19→19:38)
--- NOTE | 2021-03-09 12:40 | Orthopedic Progress Note ---
Date of Service March 09, 2021 Assessment & Plan (1) Hip fracture, left: Plan: Status post left hip hemiarthroplasty POD#2 -Ancef x24 -DVT prophylaxis: SCDs, teds, Lovenox daily -Weight-bear as tolerates left lower extremity -PT/OT Admission and Anticipated Discharge Date Admission Date: March 07, 2021 Subjective patient sleeping this am. Awakes but falls back to sleep. Physical Exam Physical Exam: Toes mobile, NVI. Calves soft. left hip Dressing in place. Results & Data ([facility]) Vital Signs (Past 12 Hours) Vital Signs Temp Pulse Resp BP Pulse Ox 03/09/21 07:00 36.6 C 73 20 132/69 96 (1) Hip fracture, left Encounter type: initial encounter Fracture type: closed Qualified Code(s): S72.002A - Fracture of unspecified part of neck of left femur, initial encounter for closed fracture
[2021-03-09] MEDS: LACTATED RINGER'S 1,000 ML IV SCH (16:02)
--- NOTE | 2021-03-09 17:41 | Hospitalist Progress Note ---
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 ground level fall S/P left hip hemiarthroplasty POD#2 Postoperative blood loss anemia, partly dilutional Appreciate orthopedics input Fall precautions PT OT as able Pain control Bowel regimen to prevent constipation Monitor for postop anemia on Lovenox for DVT Px Weightbearing as tolerated left lower extremity Leukocytosis normalized Hb 11.4 today Prolonged QTC Hold donepezil Monitor EKG Abnormal UA Ruled out UTI Urine culture: Alpha strep, not Enterococcus Probable Enterococcus Continue Rocephin Consider adjusting antibiotics based on cultures Dementia At baseline Continue home meds Past tobacco abuse DVT Px: SCDs Re:surgery Code Status DNI/DNR Admission and Anticipated Discharge Date Admission Date: March 07, 2021 Subjective Patient is seen and examined at bedside Drowsy but easily awakes History unreliable secondary to dementia No distress on exam Plan to discharge tomorrow if remains stable Review of Systems Review of Systems: Other Physical Exam Physical Exam: Physical Exam: Vitals signs as noted above General Appearance:Moderately built and nourished, no apparent distress Head: normocephalic, Atraumatic Eyes: normal inspection, EOMI Neck: supple, Trachea midline Respiratory/Chest: Normal breath sounds, CTA Cardiovascular: S1, S2, No murmur Abdomen/GI:Soft, Non tender, Bowel sounds present Extremities/Musculoskeletal:normal inspection, left lower extremity surgical site in dressing Neurologic/Psych: Unable to perform complete neurological exam, dementia Skin: normal color, warm Results & Data Results & Data ([facility]) Vital Signs (Past 12 Hours) Vital Signs Temp Pulse Resp BP Pulse Ox 03/09/21 15:00 36.5 C 78 20 154/82 H 97 03/09/21 07:00 36.6 C 73 20 132/69 96 Laboratory Results Short CBC 03/09/21 Range/Units 07:43 WBC 10.33 (4.8-10.8) K/uL Hgb 11.4 L (12.0-16.0) g/dL Hct 36.0 L (37-47) % Plt Count 179 (130-400) K/uL BMP 03/09/21 07:43 Sodium 138 Potassium 4.5 Chloride 106 Carbon Dioxide 29 BUN 26 H Creatinine 0.64 Glucose 93 Calcium 8.4 L (1) Hip fracture, left Encounter type: initial encounter Fracture type: closed Qualified Code(s): S72.002A - Fracture of unspecified part of neck of left femur, initial encounter for closed fracture
[2021-03-09] MEDS: SENNA 8.6 MG TAB PO SCH (19:37)
[2021-03-09] MEDS: MELATONIN 3 MG TAB PO SCH (19:40)
[2021-03-10 08:18] LABS: Hematocrit (blood only) 39.9 % (37-47); Hemoglobin 12.9 g/dL (12.0-16.0); Mean Corpuscular Hemoglobin 31.4 pg (25-34); Mean Corpuscular Hgb Conc 32.3 g/dL (32-36); Mean Corpuscular Volume 97.1 fL (80-100); Mean Platelet Volume 10.9 fL (7.4-10.4); Platelet Count 208 K/uL (130-400); RDW Coefficient of Variation 12.7 % (11.5-14.5); RDW Standard Deviation 45.6 fL (36.4-46.3); Red Blood Count 4.11 M/uL (4.2-5.4); White Blood Count 9.61 K/uL (4.8-10.8)
--- NOTE | 2021-03-10 08:32 | Hospitalist Progress Note ---
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 ground level fall S/P left hip hemiarthroplasty POD#3 Postoperative blood loss anemia, partly dilutional Appreciate orthopedics input Fall precautions PT OT as able Pain control Bowel regimen to prevent constipation Monitor for postop anemia on Lovenox for DVT Px Weightbearing as tolerated left lower extremity Leukocytosis normalized Hb 12.9 today Continue wound VAC as per orthopedics Prolonged QTC Hold donepezil Monitor EKG Abnormal UA Ruled out UTI Urine culture: Alpha strep, not Enterococcus Probable Enterococcus Discontinue Rocephin Started on Amoxicillin Dementia At baseline Continue home meds Past tobacco abuse DVT Px: SCDs Re:surgery Code Status DNI/DNR Disposition SNF Admission and Anticipated Discharge Date Admission Date: March 07, 2021 Subjective Patient is seen and examined at bedside No distress on exam Wound Vac in place Unable to obtain history due to dementia Urine Culture growing Probable Enterococcus Plan to discharge to rehab facility today Review of Systems Review of Systems: All systems reviewed & are unremarkable except as noted in Subjective Physical Exam Physical Exam: Physical Exam: Vitals signs as noted above General Appearance:Moderately built and nourished, no apparent distress Head: normocephalic, Atraumatic Eyes: normal inspection, EOMI Neck: supple, Trachea midline Respiratory/Chest: Normal breath sounds, CTA Cardiovascular: S1, S2, No murmur Abdomen/GI:Soft, Non tender, Bowel sounds present Extremities/Musculoskeletal:normal inspection, left lower extremity surgical site in dressing, +Wound Vac Neurologic/Psych: Unable to perform complete neurological exam, dementia Skin: normal color, warm Results & Data Results & Data ([facility]) Vital Signs (Past 12 Hours) Vital Signs Temp Pulse Resp BP Pulse Ox 03/09/21 22:58 36.8 C 79 17 138/88 97 Laboratory Results Short CBC 03/10/21 Range/Units 07:57 WBC 9.61 (4.8-10.8) K/uL Hgb 12.9 (12.0-16.0) g/dL Hct 39.9 (37-47) % Plt Count 208 (130-400) K/uL BMP 03/09/21 07:43 Sodium 138 Potassium 4.5 Chloride 106 Carbon Dioxide 29 BUN 26 H Creatinine 0.64 Glucose 93 Calcium 8.4 L (1) Hip fracture, left Encounter type: initial encounter Fracture type: closed Qualified Code(s): S72.002A - Fracture of unspecified part of neck of left femur, initial encounter for closed fracture
[2021-03-10 08:44] LABS: BUN Creatinine Ratio 35.6 (10-20); Calcium 8.7 mg/dl (8.5-10.1); Creatinine Clr Calc Pharmacy 57.1 ml/min; Est GFR (Non-African American) 81.1 ml/min; Potassium 3.9 mmol/L (3.5-5.1)
[2021-03-10] MEDS: DONEPEZIL HCL 10 MG TAB PO SCH (08:49)
[2021-03-10] MEDS: DIVALPROEX DELAY RELEASE 125 MG TABEC PO SCH (08:49)
[2021-03-10] MEDS: CHOLECALCIFEROL 1,000 UNITS 25 MCG TAB PO SCH (08:49)
[2021-03-10] MEDS: OLANZapine 5 MG TABLET PO SCH (08:49)
--- NOTE | 2021-03-10 08:49 | Discharge Summary ---
Date of Service March 10, 2021 Admission HPI Per Admitting Provider History obtained from family, [facility] staff, and records. Limited history from patient secondary to dementia. Medical history significant for dementia, osteoporosis, anxiety/mood disorder, past tobacco abuse. Patient found on the floor by [facility] staff around dinnertime. Complaining of left hip pain. Outpatient x-ray showed acute subcapital fracture of the left hip. Patient brought to the ER for evaluation. Patient not any more confused than usual as per . Patient given Ceftriaxone at the ER for possible UTI. 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 Admission Exam Per Admitting Provider Physical Exam Physical Exam: GENERAL: Comfortable, demented, no respiratory distress SKIN: Normal color, warm HEENT: Hunt palpebral conjunctivae, no ptosis, dry buccal mucosa NECK : Supple, no tenderness CHEST : CTA, no tenderness HEART : RRR, no obvious murmurs ABDOMEN: Some distention, nontender EXTREMITIES : Left hip tenderness, no other conspicuous deformities noted NEUROLOGIC : Demented, no facial asymmetry, no other gross focality Principal Diagnosis Left hip fracture Urinary tract infection Discharge Data Allergies Allergy/AdvReac Type Severity Reaction Status Date / Time No Known Allergies Allergy Verified 03/07/21 01:31 Consultations 03/07/21 01:02 ED Decision to Admit Stat 03/07/21 04:12 Consult Orthopedic Surgery Routine Procedures Performed Operation Date: 03/07/21 09:10 Actual Procedures p Left Hip Hemiarthroplasty, Uncemented(Left) - Nile Peres DO Ordered Studies 03/06/21 23:56 CT head/brain wo con Urgent Hospital Course (1) Hip fracture, left: Left hip fracture Osteoporotic left femur fracture in the setting of ground level fall S/P left hip hemiarthroplasty POD#3 Postoperative blood loss anemia, partly dilutional Appreciate orthopedics input Fall precautions PT OT as able Pain control Bowel regimen to prevent constipation Monitor for postop anemia on Lovenox for DVT Px Weightbearing as tolerated left lower extremity Leukocytosis normalized Hb 12.9 today Continue wound VAC as per orthopedics Prolonged QTC Hold donepezil Monitor EKG Abnormal UA Ruled out UTI Urine culture: Alpha strep, not Enterococcus Probable Enterococcus Discontinue Rocephin Started on Amoxicillin Dementia At baseline Continue home meds Past tobacco abuse DVT Px: SCDs Re:surgery Code Status DNI/DNR Disposition SNF Total Time Total Time Spent Total Time Spent (In Minutes): 39 minutes Discharge Plan Discharge Items Patient Disposition: Transfer [facility] Reason For Visit: LEFT HIP FX Discharge Diagnosis: Left hip fracture Urinary tract infection Activity: Per Instructions section Non-emergency contact: Primary Care Provider and Surgeon Call non-emergency contact if: you have any medication questions, your symptoms worsen, your pain is concerning for you, you have a fever, your wound has increased redness, your wound has increased drainage and your wound pain has increased Follow-up/Referrals: Ja Boggs [place] [Primary Care Provider] - Diet: Regular Addtl Attending Provider Instructions: ACTIVITY RECOMMENDATIONS: SELF CARE INSTRUCTIONS AFTER left hip hemiarthoplasty Until the incision and soft tissues around your hip have healed, there is a possibility that the hip prosthesis could dislocate. A. Observe the following precautions to prevent dislocation: 1. Don't bend your hip greater than 90 degrees. 2. Avoid crossing your legs or ankles while standing or lying. 3. Sit with your feet placed 6 inches apart. 4. When sitting, keep your knees below your hips. Sit on a firm surface, avoid deep, soft chairs and couches. Use an elevated toilet seat in the bathroom. 5. Don't bend over at the waist. Use a long handled shoehorn and a sock aid to help you put on your shoes and socks. A chemical plant worker can help you forklift picker objects that are too high or too low to reach. 6. Keep car riding to a minimum for at least one month after surgery. B. Your balance may be shaky for a while. Use crutches or a walker until directed by your doctor. C. Use hand rails when walking on stairs. D. Wear low heeled shoes with non-slip soles. E. Be sure that your floors are free of things that could trip you - throw rugs, electrical cords, small objects. Avoid wet and waxed floors, especially with crutches and canes. F. Try to walk several times a day with rest periods between. G. Continue with all the exercises taught to you in the hospital. Again, make walking a part of your daily routine. SPECIAL CARE INSTRUCTIONS: VERY IMPORTANT TO READ AND REVIEW A. You may still be at risk for phlebitis and blood clots. 1. Wear surgical stockings (JATIN hose) for one month after surgery to improve circulation and reduce swelling. 2. Take Coumadin, Lovenox (blood thinning medication) or Aspirin, as directed by your doctor. 3. If taking Coumadin, have a pro-time (blood test) drawn according to your doctor's instructions. 4. If you are on Coumadin normally, your family doctor/manager program management should monitor your blood work. Expect a phone call the day of or the day after bloodwork is drawn to adjust your dosage. B. You must take antibiotics before having dental work, bladder, bowel and other surgery. Your doctor will provide you with a permanent card to carry desc ribing precautions. C. Call [facility] if you have a fever, redness or swelling around the incision, cloudy drainage from incision, or sudden increase in pain in your hip, not relieved by your regular pain medication. D. Please call the office at if you have any concerns or quest ions about your operation or recovery. * WEAR JATIN HOSE 20 HOURS PER DAY FOR 4 WEEKS. * YOU SHOULD USE A WALKER OR CRUTCHES FOR 2-4 WEEKS. THIS WILL HELP PREVENT STRAIN ON YOUR HIP MUSCLE AND ALLOW IT TO HEAL PROPERLY. YOU MAY WEAN TO A CANE TOLERATED. * MOST PATIENTS WILL BE PRESCRIBED LOVENOX INJECTIONS ONCE DAILY FOR 2 WEEKS. ONCE YOU HAVE FINISHED THESE INJECTIONS, START TAKING ASPIRIN, 325 MG, TWICE DAILY FOR 2 MORE WEEKS. THIS IS YOUR BLOOD THINNER. * MOST PATIENTS WILL HAVE HOME NURSING FOR THERAPY & SUTURE REMOVAL. SUTURES SHOULD BE REMOVED 10-14 DAYS POST-OP. IF YOU DO NOT HAVE HOME NURSING PLEASE CALL TO SCHEDULE AN APPOINTMENT IF NOT PREVIOUSLY ARRANGED. [phone] FOLLOW UP VISIT: If appointment is not already scheduled: Please call [facility] to make a follow-up appointment for one month after your surgery at . Addtl International Student Counselor Provider Instructions: Follow-up with your primary care physician in 1 week Follow-up with your orthopedic surgeon as instructed Complete the antibiotic (Amoxicillin) course for urinary tract infection as prescribed You are final urine culture results are pending at the time of discharge. Follow-up with your physician for results. Continue Lovenox SQ for 4 weeks for deep vein thrombosis prophylaxis. Seek immediate medical attention if your symptoms reoccur or worsen Please take all medications as instructed on discharge list below. Please call if you have any questions or problems. You can reach a [facility] hospitalist on duty at [facility] 24 hours a day by calling [phone] Pending Studies at Discharge: Yes Studies:: Urine Culture Stand-Alone Forms: [facility] Skilled Items Patient informed of condition?: Yes DNR: Yes Discharge Level of Care: Skilled Communicable Disease: No Discharge Prognosis: Stable Lines: None Urinary Catheter: No Medications and DC Order Prescriptions: New amoxicillin 500 mg Capsule 500 mg PO TID 5 Days Qty: 15 RF: 0 polyethylene glycol 3350 [Miralax] 17 gram Powder In Packet 17 g PO DAILY PRN (Reason: constipation) Qty: 30 RF: 0 docusate sodium 100 mg Capsule 100 mg PO BID PRN (Reason: constipation ) Qty: 60 RF: 0 enoxaparin 40 mg/0.4 mL Syringe 40 mg subcut Q24H 28 Days Qty: 11.2 RF: 0 Continued PreserVision AREDS [id number] Capsule 1 cap PO AMHS RF: 0 multivitamin Tablet 1 tab PO QAM RF: 0 sennosides [senna] 8.6 mg Tablet 8.6 mg PO HS RF: 0 acetaminophen [Tylenol] 325 mg Tablet 650 mg PO Q4H MDD 3 GRAMS/24 HOURS PRN (Reason: TEMP/PAIN) RF: 0 donepezil [Aricept] 5 mg Tablet 10 mg PO QAM RF: 0 olanzapine 10 mg Tablet 5 mg PO BID RF: 0 melatonin 3 mg Tablet 3 mg PO HS RF: 0 divalproex [Depakote] 125 mg Tablet,Delayed Release (Dr/Ec) 125 mg PO BID RF: 0 mirtazapine [Remeron] 15 mg Tablet 15 mg PO HS RF: 0 cholecalciferol (vitamin D3) 10 mcg/mL (400 unit/mL) Drops 10 mcg PO QAM RF: 0 lorazepam 0.5 mg Tablet 0.25 mg PO TID RF: 0 Discharge Orders: Discharge Order (Routine); Ordered 03/10/21 Ordered By: Chevy Jones Admission Data Admit Date/Time: 03/07/21 03:29 Attending Provider: Chevy Jones Admit Provider: Tanner Becerra Primary Care Provider: Ja Boggs [facility] Other Providers: Ja Boggs [facility] ; Tanner Becerra ; Felix Weir ; Reagan Ochoa ; Salvador Banegas ; Payal Ho ; Nhan Manley ; Traci Avila ; Dalton Zepeda ; Orville Kaur ; Silverio Wise ; Maksim Steen ; Orville Sorenson ; Bert Menjivar ; Amando Preston ; Jay Bean ; Reji Trujillo ; Traci Milner ; Nile Peres ; Maurizio Farley ; Margarita Aguirre ; Shine Lynn ; Sharon Velazquez Other Interventions: Discharge Summary Assessment (RN) Last Done: 03/10/21 09:13
[2021-03-10] MEDS: ENOXAPARIN INJ 40 MG/0.4 ML SYR SQ SCH (08:50)
[2021-03-10] MEDS: MULTIVITAMIN TAB PO SCH (08:50)
[2021-03-10] MEDS ORDERED: AMOXICILLIN 500 MG CAP PO SCH (09:00)
== END 2021-03-10 10:29 | DRG 522 ==
LOC: ED 23:39 → 3E 03-07 03:29

== ENCOUNTER 2022-12-09 21:36 | Inpatient (IN) ==
--- NOTE | 2022-12-09 22:29 | Emergency Department Note ---
Impression & Plan Acute hypoxemic respiratory failure, Paroxysmal atrial fibrillation, Sepsis, Pneumonia ED Provider Note NAME: STEPHEN BLACKWELL AGE: 87 SEX: F : 1935 ARRIVES VIA: Ambulance INFORMANT: Patient, ED PROVIDER(S): Miko Schwartz MD CHIEF COMPLAINT: A-fib with RVR, hypoxia MEDICAL DECISION MAKING: Patient presented due to concern for reported A-fib with RVR and associated pneumonia. IV was established blood work was obtained along with a blood culture and lactate. The patient was ordered Rocephin doxycycline. Chest x-ray was obtained which does show right lower lobe pneumonia by my read. White count of 23. This was expanded to include Zosyn IV. Patient's blood work shows white count of 23 with a normal H&H and platelet count. Patient's kidney function with prerenal azotemia and the patient was ordered additional IV fluids. Mild elevation the patient's troponin at 23. Patient's lactate is 1.6. Bio fire is negative. Patient does have A-fib with RVR which reportedly is new. The patient is volume down and thus I believe fluid resuscitation unreasonable at this time. Initial 1 L of IV fluids was ordered instead of 30 cc/kg bolus and additional IV fluids were deferred to the inpatient team given the patient's new onset A-fib with RVR. Patient is DNR. I did speak with the on-call hospitalist Dr. Becerra and the patient was admitted to the medicine service. Critical Care: I have personally spent 49 minutes of critical care time in direct management of this patient. This includes bedside care, interpretation of diagnostic studies, and testing, discussion with consultants, patient, and family members, and other require inpatient management activities. This 49 minutes is in excess of all [place] billable procedures. Prior /Outside records reviewed: I did review and H&P completed by Dr. Becerra from February 2021. Patient does have a history of dementia. Differential diagnosis: A-fib with RVR, diastolic dysfunction, reactive airway disease, pneumonia, pneumothorax, COPD, CHF, infections, cardiac ischemia, pulmonary embolism, musculoskeletal, gastrointestinal, as well as other pathologies. Diagnostics, as interpreted by me: ECG: A-fib with RVR, rate of 105, normal QRS, left axis deviation Cardiac monitoring: An order was placed for continuous cardiac monitoring. The monitor shows a rate of 102 with tachycardic and regular rhythm. Patient was placed on pulse oximetry Medical decision rules: None Imaging studies: See below I informally reviewed the patient's chest x-ray which shows a right lower lobe consolidation. HPI: No history is obtained from the patient at bedside but this is reportedly her neurologic baseline. The patient is not awake nor alert but is breathing spontaneously. The patient recently developed a viral infection which subsequently turned into pneumonia. Patient was started on Rocephin but the patient has required increasing amounts of supplemental oxygen and was noted to be in A-fib with RVR today. Thus given their concerns the patient was sent here for further evaluation and treatment. The patient is a resident of [facility] PAST MEDICAL HISTORY: See Below PAST SURGICAL HISTORY: See Below SOCIAL HISTORY: See Below HOME MEDICATIONS: See Below ALLERGIES: See Below VITALS: See Below PHYSICAL EXAMINATION: GENERAL: Lying in bed, nasal cannula in place. EYE EXAM: Normal conjunctiva. PERRL, no anisocoria and EOM's grossly intact w/o pain. Oropharynx: Dry mucous membranes. NECK: Supple, no nuchal rigidity, no adenopathy, non-tender. No signs of meningismus. FROM of the neck with good chin to chest and neck extension. No stridor. LUNGS: Coarse sounds at the right base normal chest wall mechanics. HEART: Tachycardic and irregularly irregular, no MRG. ABDOMEN: Abdomen soft, non-tender, no masses, no rebound or guarding. BACK: No CVA TTP. SKIN: No rashes and no bruising. UPPER EXTREMITIES: Upper extremities are grossly normal. LOWER EXTREMITIES: Grossly normal, no edema. NEURO EXAM: Does not follow any commands, eyes closed, breathing spontaneously. Past Med/Surg History Medical History Dementia No pertinent family history Surgical History No pertinent past surgical history Social History Smoking Status: Never smoker Second Hand Exposure: No; Do You Dip or Chew Tobacco: No (Patient unable to answer, no family present. 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 Other Information That Helps Us Care for You: No Feels Safe at Home: Declines to Answer Safety Concerns: Feels Safe At This Time Assistive Devices: Mechanical Lift and Wheelchair Allergies Allergies Allergy/AdvReac Type Severity Reaction Status Date / Time No Known Allergies Allergy Verified 03/07/21 01:31 Home Meds Home Medications Medication Instructions Recorded Confirmed vitamins A,C,F-jaeo-rwwfgj 4,296 1 cap PO AMHS 02/09/20 12/09/22 mcg-226 mg-90 mg capsule (PreserVision AREDS) acetaminophen 325 mg tablet 650 mg PO Q4H PRN TEMP/PAIN 03/07/21 12/09/22 (Tylenol) melatonin 3 mg tablet 3 mg PO HS 03/07/21 12/09/22 mirtazapine 15 mg tablet (Remeron) 15 mg PO HS 03/07/21 12/09/22 multivitamin 1 tab PO QAM 03/07/21 12/09/22 sennosides 8.6 mg tablet (senna) 8.6 mg PO BID 03/07/21 12/09/22 acetaminophen 325 mg tablet 650 mg PO QAM 12/09/22 12/09/22 cholecalciferol (vitamin D3) 25 25 mcg PO QAM 12/09/22 12/09/22 mcg (1,000 unit) tablet dextran 70-hypromellose eye drops 2 drp OPB QID 12/09/22 12/09/22 in a dropperette (Artificial Tears (PF) drops in a dropperette) eyelid cleanser combination 3 1 pad topical AMHS 12/09/22 12/09/22 (OcuSoft Lid Scrub Plus topical pads) gabapentin 100 mg capsule 100 mg PO AMHS 12/09/22 12/09/22 guaifenesin 100 mg/5 mL oral liquid 200 mg PO Q4H PRN Cough 12/09/22 12/09/22 lanolin alcohols-mineral 1 applic topical Q8 PRN Dry Skin 12/09/22 12/09/22 oil-w.petrolatum-ceresin topical cream (Eucerin topical cream) olanzapine 5 mg tablet 5 mg PO BID 12/09/22 12/09/22 selenium sulfide 1 % shampoo 1 applic topical 2XWK 12/09/22 12/09/22 (Selsun Blue) sodium chloride 0.45 % 0.45 % 1 ea continuous IV infusion QS 12/09/22 12/09/22 intravenous solution Results & Data (ED) Vital Signs Vital Signs - 24 hr 12/10/22 01:02 12/10/22 01:35 12/10/22 01:30 Pulse Rate 96 H Pulse Rate [Apical] 99 H 101 H Respiratory Rate 18 22 Blood Pressure [Left Arm] 105/77 108/78 Blood Pressure Mean [Left Arm] 86 88 Pulse Oximetry 94 93 Oxygen Delivery Method Room Air Nasal Cannula Oxygen Flow Rate 2 Home Medications Current Medication List: was personally reviewed by me Laboratory Data Attestation: I reviewed the patient's lab results. 12/09/22 22:17 12/09/22 22:17 Lab Results 12/09/22 12/09/22 12/09/22 Range/Units 22:17 22:17 22:17 WBC 23.21 H (4.8-10.8) K/ul RBC 4.61 (4.20-5.40) M/uL Hgb 14.0 (12.0-16.0) g/dl Hct 44.2 (37.0-47.0) % MCV 95.9 (80.0-100.0) fL MCH 30.4 (25.0-34.0) pg MCHC 31.7 L (32.0-36.0) g/dL RDW Std Deviation 51.1 H (36.4-46.3) fL RDW Coeff of Enrrique 14.5 (11.5-14.5) % Plt Count 282 (130-400) K/uL MPV 11.2 (9.4-12.4) fL Immature Gran % (Auto) 0.9 % Neut % (Auto) 77.7 % Lymph % (Auto) 12.9 % [place] % (Auto) 7.5 % Eos % (Auto) 0.5 % Baso % (Auto) 0.5 % Neut # (Auto) 18.03 H (1.40-6.50) K/uL Lymph # (Auto) 2.99 (1.2-3.4) K/uL [place] # (Auto) 1.74 H (0.11-0.59) K/uL Eos # (Auto) 0.11 (0-0.50) K/uL Baso # (Auto) 0.12 (0-0.2) K/uL Immature Gran # (Auto) 0.22 H (0.01-0.20) K/uL PT 12.2 H (9.0-12.0) Seconds INR 1.1 (0.9-1.1) APTT 24.5 (21.0-31.0) Seconds PTT Ratio 0.9 ABG pH (7.35-7.45) ABG pCO2 (35-46) mmHg ABG pO2 (80-95) mmHg ABG HCO3 (19-24) mmol/L ABG O2 Saturation (90-95) % ABG Base Excess (-9-1.8) mEq/L German Test (Pos) Oxygen Given Sodium 149 H (136-145) mmol/L Potassium 3.8 (3.5-5.1) mmol/L Chloride 116 H (98-107) mmol/L Carbon Dioxide 26 (21-32) mmol/L Anion Gap 7 (3-11) BUN 33 H (6-23) mg/dl Creatinine 0.84 (0.6-1.2) mg/dl Est Cr Clr Drug Dosing Not Reportable Est GFR ( Amer) 72.9 ml/min Est GFR (Non-Af Amer) 62.9 ml/min BUN/Creatinine Ratio 39.3 H (10-20) Glucose 110 H (70-99(Fasting)) mg/dl Lactate (0.4-2.0) mmol/L Calcium 8.9 (8.6-10.3) mg/dl Magnesium (1.7-2.4) mg/dl Total Bilirubin 1.1 H (0.2-1.0) mg/dl AST 115 H (13-39) U/L ALT 177 H (7-52) U/L Alkaline Phosphatase 302 H (34-104) U/L Troponin I High Sens 23.8 H (0-14) pg/ml Total Protein 6.6 (6.0-8.3) gm/dl Albumin 3.1 L (3.4-5.0) gm/dl Globulin 3.5 (2.5-4.0) gm/dl Albumin/Globulin Ratio 0.9 (0.9-2) TSH (0.300-4.500) uIu/ml Adenovirus (PCR) (NotDetected) B. pertussis DNA (PCR) (NotDetected) B.parapertussis DNA PCR (NotDetected) C. pneumoniae DNA (PCR) (NotDetected) Coronavirus OC43 (PCR) (NotDetected) Coronavirus HKU1 (PCR) (NotDetected) Coronavirus 229E (PCR) (NotDetected) SARS-CoV-2 (PCR) (NotDetected) Coronavirus NL63 (PCR) (NotDetected) Human Metapneumovir PCR (NotDetected) Influenza Type A (PCR) (NotDetected) Influenza Type B (PCR) (NotDetected) M. pneumoniae (PCR) (NotDetected) Parainfluenza 1 (PCR) (NotDetected) Parainfluenza 2 (PCR) (NotDetected) Parainfluenza 3 (PCR) (NotDetected) Parainfluenza 4 (PCR) (NotDetected) RSV (PCR) (NotDetected) Entero/Rhino (PCR) (NotDetected) 12/09/22 12/09/22 12/09/22 Range/Units 22:17 22:17 22:44 WBC (4.8-10.8) K/ul RBC (4.20-5.40) M/uL Hgb (12.0-16.0) g/dl Hct (37.0-47.0) % MCV (80.0-100.0) fL MCH (25.0-34.0) pg MCHC (32.0-36.0) g/dL RDW Std Deviation (36.4-46.3) fL RDW Coeff of Enrrique (11.5-14.5) % Plt Count (130-400) K/uL MPV (9.4-12.4) fL Immature Gran % (Auto) % Neut % (Auto) % Lymph % (Auto) % [place] % (Auto) % Eos % (Auto) % Baso % (Auto) % Neut # (Auto) (1.40-6.50) K/uL Lymph # (Auto) (1.2-3.4) K/uL [place] # (Auto) (0.11-0.59) K/uL Eos # (Auto) (0-0.50) K/uL Baso # (Auto) (0-0.2) K/uL Immature Gran # (Auto) (0.01-0.20) K/uL PT (9.0-12.0) Seconds INR (0.9-1.1) APTT (21.0-31.0) Seconds PTT Ratio ABG pH (7.35-7.45) ABG pCO2 (35-46) mmHg ABG pO2 (80-95) mmHg ABG HCO3 (19-24) mmol/L ABG O2 Saturation (90-95) % ABG Base Excess (-9-1.8) mEq/L German Test (Pos) Oxygen Given Sodium (136-145) mmol/L Potassium (3.5-5.1) mmol/L Chloride (98-107) mmol/L Carbon Dioxide (21-32) mmol/L Anion Gap (3-11) BUN (6-23) mg/dl Creatinine (0.6-1.2) mg/dl Est Cr Clr Drug Dosing Est GFR ( Amer) ml/min Est GFR (Non-Af Amer) ml/min BUN/Creatinine Ratio (10-20) Glucose (70-99(Fasting)) mg/dl Lactate 1.6 (0.4-2.0) mmol/L Calcium (8.6-10.3) mg/dl Magnesium (1.7-2.4) mg/dl Total Bilirubin (0.2-1.0) mg/dl AST (13-39) U/L ALT (7-52) U/L Alkaline Phosphatase (34-104) U/L Troponin I High Sens (0-14) pg/ml Total Protein (6.0-8.3) gm/dl Albumin (3.4-5.0) gm/dl Globulin (2.5-4.0) gm/dl Albumin/Globulin Ratio (0.9-2) TSH 0.969 (0.300-4.500) uIu/ml Adenovirus (PCR) Not Detected (NotDetected) B. pertussis DNA (PCR) Not Detected (NotDetected) B.parapertussis DNA PCR Not Detected (NotDetected) C. pneumoniae DNA (PCR) Not Detected (NotDetected) Coronavirus OC43 (PCR) Not Detected (NotDetected) Coronavirus HKU1 (PCR) Not Detected (NotDetected) Coronavirus 229E (PCR) Not Detected (NotDetected) SARS-CoV-2 (PCR) Not Detected (NotDetected) Coronavirus NL63 (PCR) Not Detected (NotDetected) Human Metapneumovir PCR Not Detected (NotDetected) Influenza Type A (PCR) Not Detected (NotDetected) Influenza Type B (PCR) Not Detected (NotDetected) M. pneumoniae (PCR) Not Detected (NotDetected) Parainfluenza 1 (PCR) Not Detected (NotDetected) Parainfluenza 2 (PCR) Not Detected (NotDetected) Parainfluenza 3 (PCR) Not Detected (NotDetected) Parainfluenza 4 (PCR) Not Detected (NotDetected) RSV (PCR) Not Detected (NotDetected) Entero/Rhino (PCR) Not Detected (NotDetected) 12/09/22 12/10/22 Range/Units 23:14 00:25 WBC (4.8-10.8) K/ul RBC (4.20-5.40) M/uL Hgb (12.0-16.0) g/dl Hct (37.0-47.0) % MCV (80.0-100.0) fL MCH (25.0-34.0) pg MCHC (32.0-36.0) g/dL RDW Std Deviation (36.4-46.3) fL RDW Coeff of Enrrique (11.5-14.5) % Plt Count (130-400) K/uL MPV (9.4-12.4) fL Immature Gran % (Auto) % Neut % (Auto) % Lymph % (Auto) % [place] % (Auto) % Eos % (Auto) % Baso % (Auto) % Neut # (Auto) (1.40-6.50) K/uL Lymph # (Auto) (1.2-3.4) K/uL [place] # (Auto) (0.11-0.59) K/uL Eos # (Auto) (0-0.50) K/uL Baso # (Auto) (0-0.2) K/uL Immature Gran # (Auto) (0.01-0.20) K/uL PT (9.0-12.0) Seconds INR (0.9-1.1) APTT (21.0-31.0) Seconds PTT Ratio ABG pH 7.43 (7.35-7.45) ABG pCO2 41 (35-46) mmHg ABG pO2 74 L (80-95) mmHg ABG HCO3 27 H (19-24) mmol/L ABG O2 Saturation 97.3 H (90-95) % ABG Base Excess 2.6 H (-9-1.8) mEq/L German Test Pos (Pos) Oxygen Given 2L Sodium (136-145) mmol/L Potassium (3.5-5.1) mmol/L Chloride (98-107) mmol/L Carbon Dioxide (21-32) mmol/L Anion Gap (3-11) BUN (6-23) mg/dl Creatinine (0.6-1.2) mg/dl Est Cr Clr Drug Dosing Est GFR ( Amer) ml/min Est GFR (Non-Af Amer) ml/min BUN/Creatinine Ratio (10-20) Glucose (70-99(Fasting)) mg/dl Lactate (0.4-2.0) mmol/L Calcium (8.6-10.3) mg/dl Magnesium 2.2 (1.7-2.4) mg/dl Total Bilirubin (0.2-1.0) mg/dl AST (13-39) U/L ALT (7-52) U/L Alkaline Phosphatase (34-104) U/L Troponin I High Sens 23.3 H (0-14) pg/ml Total Protein (6.0-8.3) gm/dl Albumin (3.4-5.0) gm/dl Globulin (2.5-4.0) gm/dl Albumin/Globulin Ratio (0.9-2) TSH (0.300-4.500) uIu/ml Adenovirus (PCR) (NotDetected) B. pertussis DNA (PCR) (NotDetected) B.parapertussis DNA PCR (NotDetected) C. pneumoniae DNA (PCR) (NotDetected) Coronavirus OC43 (PCR) (NotDetected) Coronavirus HKU1 (PCR) (NotDetected) Coronavirus 229E (PCR) (NotDetected) SARS-CoV-2 (PCR) (NotDetected) Coronavirus NL63 (PCR) (NotDetected) Human Metapneumovir PCR (NotDetected) Influenza Type A (PCR) (NotDetected) Influenza Type B (PCR) (NotDetected) M. pneumoniae (PCR) (NotDetected) Parainfluenza 1 (PCR) (NotDetected) Parainfluenza 2 (PCR) (NotDetected) Parainfluenza 3 (PCR) (NotDetected) Parainfluenza 4 (PCR) (NotDetected) RSV (PCR) (NotDetected) Entero/Rhino (PCR) (NotDetected) Administered Medications Acetylcysteine (Acetylcysteine 10% Inhal Soln 4 Ml Dispensed By Resp.) 3 ml INH BID ALTAGRACIA Stop: 01/09/23 09:59 Last Admin: 12/10/22 19:41 Dose: 3 ml Documented By: Admin: 12/10/22 12:40 Dose: 3 ml Documented By: DERRICK Piperacillin Sod/Tazobactam (Sod 4.5 gm/ Dextrose) 120 mls @ 30 mls/hr IV Q8H ALTAGRACIA; Protocol Stop: 12/17/22 07:59 Last Admin: 12/10/22 23:21 Dose: 30 mls/hr Documented By: Infusion: 12/10/22 20:20 Dose: 0 mls/hr Documented By: Admin: 12/10/22 16:16 Dose: 30 mls/hr Documented By: Infusion: 12/10/22 13:28 Dose: 30 mls/hr Documented By: Admin: 12/10/22 09:28 Dose: 30 mls/hr Documented By: SAM Heparin Sodium/Dextrose (Heparin Sodium/Dextrose) 25,000 units in 500 mls @ 16 mls/hr IV .Q24H ALTAGRACIA; Protocol Stop: 01/09/23 02:44 Last Titration: 12/10/22 19:04 Dose: 800 units/hr, 16 mls/hr Documented By: SAM Co-signed By: MAO Titration: 12/10/22 18:10 Dose: 800 units/hr, 16 mls/hr Documented By: SAM Co-signed By: MARIA ALEJANDRA Titration: 12/10/22 06:57 Dose: 750 units/hr, 15 mls/hr Documented By: LENO Co-signed By: SAM Admin: 12/10/22 03:01 Dose: 750 units/hr, 15 mls/hr Documented By: ARNAV Co-signed By: MICHEAL Doxycycline Hyclate 100 mg/ (Dextrose) 110 mls @ 50 mls/hr IV BID@0600,2000 ALTAGRACIA Stop: 12/17/22 05:59 Last Infusion: 12/10/22 22:45 Dose: 0 mls/hr Documented By: Admin: 12/10/22 20:24 Dose: 50 mls/hr Documented By: Infusion: 12/10/22 19:29 Dose: 0 mls/hr Documented By: Admin: 12/10/22 06:07 Dose: 50 mls/hr Documented By: LENO Ipratropium [place] (Ipratropium [place] Neb Soln 0.02% 2.5 Ml Vial) 0.5 mg INH Q6R ALTAGRACIA Stop: 01/09/23 07:59 Last Admin: 12/10/22 19:41 Dose: 0.5 mg Documented By: Admin: 12/10/22 12:40 Dose: 0.5 mg Documented By: Admin: 12/10/22 09:35 Dose: 0.5 mg Documented By: SAM(2) Levalbuterol HCl (Levalbuterol 1.25mg/0.5ml Neb) 1.25 mg INH Q6R ALTAGRACIA Stop: 01/09/23 07:59 Last Admin: 12/10/22 19:42 Dose: 1.25 mg Documented By: Admin: 12/10/22 12:40 Dose: 1.25 mg Documented By: Admin: 12/10/22 09:35 Dose: 1.25 mg Documented By: SAM(2) Melatonin (Melatonin 3 Mg Tab) 3 mg PO HS ALTAGRACIA Stop: 01/09/23 20:59 Last Admin: 12/10/22 20:30 Dose: Not Given Documented By: MAO Metoprolol Tartrate (Metoprolol Tartrate 1 Mg/Ml Vial) 2.5 mg IV Q6 ALTAGRACIA Stop: 01/09/23 05:59 Last Admin: 12/10/22 23:23 Dose: 2.5 mg Documented By: Admin: 12/10/22 17:36 Dose: 2.5 mg Documented By: Admin: 12/10/22 12:47 Dose: 2.5 mg Documented By: Admin: 12/10/22 06:07 Dose: 2.5 mg Documented By: LENO Multivitamins (Multivitamin Tab) 1 tab PO QAM ALTAGRACIA Stop: 01/09/23 08:59 Last Admin: 12/10/22 08:29 Dose: Not Given Documented By: SAM Multivitamins/Minerals (Cerovite Adv Formula Tab) 1 tab PO AMHS ALTAGRACIA Stop: 01/09/23 08:59 Last Admin: 12/10/22 20:30 Dose: Not Given Documented By: Admin: 12/10/22 08:29 Dose: Not Given Documented By: SAM Olanzapine (Olanzapine 5 Mg Tablet) 5 mg PO BID ALTAGRACIA Stop: 01/09/23 08:59 Last Admin: 12/10/22 20:31 Dose: Not Given Documented By: Admin: 12/10/22 08:29 Dose: Not Given Documented By: SAM Sennosides (Senna 8.6 Mg Tab) 8.6 mg PO BID [facility] Stop: 01/09/23 08:59 Last Admin: 12/10/22 20:31 Dose: Not Given Documented By: Admin: 12/10/22 06:57 Dose: Not Given Documented By: SAM Discontinued Medications Heparin Sodium/Dextrose (Heparin 78327 Unit/500 Ml D5w) Confirm Administered Dos e 25,000 units IV .STK-MED ONE Stop: 12/10/22 02:56 Last Admin: 12/10/22 03:11 Dose: Not Given Documented By: MICHEAL Sodium Chloride (Nss 1000ml) 1,000 mls @ 999 mls/hr IV .Q1H1M ONE Stop: 12/09/22 23:35 Last Infusion: 12/10/22 00:35 Dose: 0 mls/hr Documented By: Admin: 12/09/22 22:51 Dose: 999 mls/hr Documented By: ARNAV Ceftriaxone Sodium (Rocephin) 2,000 mg in 70 mls @ 140 mls/hr IV NOW STA Stop: 12/09/22 23:04 Last Infusion: 12/09/22 23:45 Dose: 0 mls/hr Documented By: Admin: 12/09/22 23:15 Dose: 140 mls/hr Documented By: ARNAV Doxycycline Hyclate 100 mg/ (Dextrose) 110 mls @ 50 mls/hr IV NOW STA Stop: 12/10/22 00:46 Last Infusion: 12/10/22 01:36 Dose: 0 mls/hr Documented By: Admin: 12/09/22 23:36 Dose: 50 mls/hr Documented By: ARNAV Piperacillin Sod/Tazobactam Sod (Zosyn) 4.5 gm in 120 mls @ 240 mls/hr IV NOW ONE Stop: 12/10/22 00:10 Last Infusion: 12/10/22 00:38 Dose: 0 mls/hr Documented By: Admin: 12/10/22 00:08 Dose: 240 mls/hr Documented By: ARNAV Potassium Chloride (K Parveen / Wtr) 10 meq in 100 mls @ 100 mls/hr IV Q1H ALTAGRACIA; Protocol Stop: 12/10/22 02:14 Last Infusion: 12/10/22 03:12 Dose: 0 mls/hr Documented By: Admin: 12/10/22 01:54 Dose: 100 mls/hr Documented By: Infusion: 12/10/22 01:54 Dose: 0 mls/hr Documented By: Admin: 12/10/22 00:58 Dose: 100 mls/hr Documented By: ARNAV Sodium Chloride (1/2 Nss) 1,000 mls @ 75 mls/hr IV .[id number] STA Stop: 12/10/22 13:31 Last Infusion: 12/10/22 17:05 Dose: 0 mls/hr Documented By: Admin: 12/10/22 00:41 Dose: 75 mls/hr Documented By: ARNAV Methylprednisolone (Methylprednisolone 40 Mg/Ml Vial) 20 mg IV ONE STA Stop: 12/10/22 02:52 Last Admin: 12/10/22 02:58 Dose: 20 mg Documented By: ARNAV Metoprolol Tartrate (Metoprolol Tartrate 1 Mg/Ml Vial) 2.5 mg IV NOW STA Stop: 12/09/22 23:53 Last Admin: 12/10/22 00:05 Dose: 2.5 mg Documented By: ARNAV Metoprolol Tartrate (Metoprolol Tartrate 1 Mg/Ml Vial) 2.5 mg IV NOW STA Stop: 12/10/22 02:37 Last Admin: 12/10/22 02:58 Dose: 2.5 mg Documented By: ARNAV Pneumococcal Polyvalent Vaccine (Pneumococcal Polysaccharides 25 Mcg/0.5 Ml Vial/Syr) 25 mcg IM .ONCE ONE Stop: 12/10/22 09:01 Last Admin: 12/10/22 08:30 Dose: Not Given Documented By: SAM Imaging Data Radiologist's Impression: Chest X-Ray 12/09/22 21:51 SINGLE VIEW CHEST CLINICAL HISTORY: Atypical chest pain. FINDINGS: An AP, portable, upright chest radiograph is compared to study dated 03/06/2021. The examination is degraded by portable technique and patient rotation. The heart is enlarged noting atherosclerotic calcification of the thoracic aorta. The pulmonary vasculature is noncongested. There is airspace consolidation at the right lung base. Left basilar opacities are also noted. No large pleural effusion or pneumothorax is seen. The skeletal structures are osteopenic. The bony thorax is grossly intact. Arthritic change is noted in the shoulders and spine. IMPRESSION: 1. Cardiomegaly without radiographic evidence of congestive failure. 2. Right basilar consolidation is typical for pneumonia/aspiration pneumonitis. Clinical correlation will be required and radiographic follow-up to resolution is recommended. 3. Left basilar opacities could represent scarring/atelectasis versus a mild pneumonitis. ACT 112: Negative or not required by law. Electronically signed by: Abisai Mcghee M.D. 12/10/2022 8:21 AM Discharge Plan Visit Data Chief Complaint: Tachycardia Stated Complaint: SHORTNESS OF BREATH, NEW AFIB ED Provider: Miko Schwartz Discharge Problem: Acute hypoxemic respiratory failure, Paroxysmal atrial fibrillation, Sepsis, Pneumonia Patient Disposition: Admitted As Inpatient Discharge Instructions Interventions: ED Discharge Assessment Last Done: 12/10/22 04:36
[2022-12-09] MEDS ORDERED: SODIUM CHLORIDE 0.9% 1000ML 1,000 ML IV ONE (22:35)
[2022-12-09] MEDS ORDERED: cefTRIAXone SODIUM 2,000 MG/70 ML BAG IV STA (22:35)
[2022-12-09] MEDS ORDERED: DOXYCYCLINE HYCLATE 100 MG in DEXTROSE 5% 100 ML IV STA (22:35)
[2022-12-09 22:45] LABS: Basophils # (auto) 0.12 K/uL (0-0.2); Basophils % (auto) 0.5 %; Eosinophils # (auto) 0.11 K/uL (0-0.50); Eosinophils % (auto) 0.5 %; Hematocrit (blood only) 44.2 % (37.0-47.0); Immature Granulocytes # (auto) 0.22 K/uL (0.01-0.20); Immature Granulocytes % (auto) 0.9 %; Lymphocytes # (auto) 2.99 K/uL (1.2-3.4); Lymphocytes % (auto) 12.9 %; Mean Corpuscular Hemoglobin 30.4 pg (25.0-34.0); Mean Corpuscular Hgb Conc 31.7 g/dL (32.0-36.0); Mean Corpuscular Volume 95.9 fL (80.0-100.0); Mean Platelet Volume 11.2 fL (9.4-12.4); Monocytes # (auto) 1.74 K/uL (0.11-0.59); Monocytes % (auto) 7.5 %; Neutrophils # (auto) 18.03 K/uL (1.40-6.50); Neutrophils % (auto) 77.7 %; Platelet Count 282 K/uL (130-400); RDW Coefficient of Variation 14.5 % (11.5-14.5); RDW Standard Deviation 51.1 fL (36.4-46.3); Red Blood Count 4.61 M/uL (4.20-5.40); White Blood Count 23.21 K/ul (4.8-10.8)
[2022-12-09 22:59] LABS: Alanine Aminotransferase 177 U/L (7-52); Albumin Globulin Ratio 0.9 (0.9-2); Albumin Level 3.1 gm/dl (3.4-5.0); Alkaline Phosphatase 302 U/L (34-104); Anion Gap 7 (3-11); Aspartate Aminotransferase 115 U/L (13-39); BUN Creatinine Ratio 39.3 (10-20); Bilirubin,Total 1.1 mg/dl (0.2-1.0); Blood Urea Nitrogen 33 mg/dl (6-23); Calcium 8.9 mg/dl (8.6-10.3); Carbon Dioxide 26 mmol/L (21-32); Chloride 116 mmol/L (98-107); Est GFR (African American) 72.9 ml/min; Est GFR (Non-African American) 62.9 ml/min; Globulin 3.5 gm/dl (2.5-4.0); Glucose 110 mg/dl (70-99(Fasting)); Potassium 3.8 mmol/L (3.5-5.1); Sodium 149 mmol/L (136-145); Total Protein 6.6 gm/dl (6.0-8.3)
[2022-12-09 23:04] LABS: Troponin I High Sensitivity 23.8 pg/ml (0-14)
[2022-12-09 23:09] LABS: INR 1.1 (0.9-1.1); Partial Thromboplastin Ratio 0.9; Partial Thromboplastin Time 24.5 Seconds (21.0-31.0); Prothrombin Time 12.2 Seconds (9.0-12.0)
[2022-12-09] MEDS ORDERED: PIPERACILLIN/TAZOBACTAM 4.5 GM/120 ML BAG IV ONE (23:41)
[2022-12-09] MEDS ORDERED: METOPROLOL TARTRATE 1 MG/ML VIAL IV STA (23:52)
[2022-12-09 23:57] LABS: Adenovirus PCR Not Detected (NotDetected); Bordetella parapertussis PCR Not Detected (NotDetected); Bordetella pertussis PCR Not Detected (NotDetected); Chlamydia pneumoniae PCR Not Detected (NotDetected); Coronavirus 229E PCR Not Detected (NotDetected); Coronavirus CoV-2 (COVID19)PCR Not Detected (NotDetected); Coronavirus HKU1 PCR Not Detected (NotDetected); Coronavirus NL63 PCR Not Detected (NotDetected); Coronavirus OC43PCR Not Detected (NotDetected); Human Metapneumovirus PCR Not Detected (NotDetected); Influenza A PCR Not Detected (NotDetected); Influenza B PCR Not Detected (NotDetected); Mycoplasma pneumoniae PCR Not Detected (NotDetected); Parainfluenza Virus 1 PCR Not Detected (NotDetected); Parainfluenza Virus 2 PCR Not Detected (NotDetected); Parainfluenza Virus 3 PCR Not Detected (NotDetected); Parainfluenza Virus 4 PCR Not Detected (NotDetected); Respiratory Syncytial VirusPCR Not Detected (NotDetected); Rhinovirus/Enterovirus PCR Not Detected (NotDetected)
[2022-12-10] MEDS ORDERED: SODIUM CHLORIDE 0.45 % 1,000 ML IV STA (00:12)
[2022-12-10 00:42] LABS: Base Excess ABG 2.6 mEq/L (-9-1.8); HCO3 ABG 27 mmol/L (19-24); Oxygen Saturation ABG 97.3 % (90-95); PCO2 ABG 41 mmHg (35-46); PO2 ABG 74 mmHg (80-95); pH ABG 7.43 (7.35-7.45)
[2022-12-10 00:50] LABS: Allen Test Pos (Pos)
[2022-12-10 00:55] LABS: Magnesium 2.2 mg/dl (1.7-2.4)
[2022-12-10] MEDS: POTASSIUM CHLORIDE / WTR 10 MEQ/100 ML PLCT IV SCH ×2 (00:58→01:54)
[2022-12-10 01:02] LABS: Troponin I High Sensitivity 23.3 pg/ml (0-14)
--- NOTE | 2022-12-10 02:22 | History & Physical Report ---
Date of Service December 10, 2022 Assessment & Plan (1) Severe sepsis: Plan: SIRS plus hypoxemic respiratory failure secondary to HCAP possible aspiration Metapneumovirus on respiratory panel new onset A-fib secondary to illness Abnormal LFTs rule out cholelithiasis, patient unable to verbalize abdominal pain complaints due to dementia Janice past tobacco abuse PCU due to uncontrolled A-fib Supplemental O2 CS, Zosyn, Doxycycline Solu-Medrol 1 dose now given bronchospasm causing hypoxemia, nebs RTC Aspiration precautions, swallow eval beta-chris for A-fib rate control IV heparin for thromboembolic prophylaxis TTE, Cardiology consult Re: New onset A-fib Follow LFTs, liver ultrasound DVT prophylaxis. IV heparin DNR as per patient's prior directives. Attempted to contact patient's over the phone (Mr. Deedee Justin, [phone]) to discuss patient issues and address goals of care. No answer, left message for call back. Total critical care time was 40 minutes. Text document was generated using [employer] voice recognition software. It may contain grammatical or spelling errors. Kindly contact undersigned for clarification of any documentation item in question. History of Present Illness Chief Complaint: Hypoxemia Primary Care Provider: Flakita polo [place] History obtained from residential staff and records. Limited history from patient secondary to dementia. Medical history significant for dementia, osteoporosis, anxiety/mood disorder, past tobacco abuse. Last confinement February 2021 for left hip fracture status post surgery. Patient noted to be ill last week at residential with respiratory tract infection. Rhinovirus on respiratory panel as per records. Scattered episodes of vomiting since last week. Increased coughing symptoms. Yesterday, patient noted to be febrile, temperature 100.2. Sats noted to be 89 on room air. Irregular heart rhythm on auscultation as per residential provider documentation. WBC noted to be 18, abnormal LFTs noted. Chest x-ray and abdominal ultrasound contemplated. IV ceftriaxone administered at residential. Patient sent to ER for evaluation of worsening symptoms. Patient not any more confused as usual as per residential staff. O2 sats 89 on room air upon arrival at the ER. Doxycycline and Zosyn administered at the ER. Patient unable to respond to questions regarding headache, chest pain, SOB, abdominal pain. 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 Allergies Allergy/AdvReac Type Severity Reaction Status Date / Time No Known Allergies Allergy Verified 03/07/21 01:31 Home Medications Medication Instructions Recorded Confirmed Type vitamins A,C,P-wasq-bqcyzk 4,296 1 cap PO AMHS 02/09/20 12/09/22 History mcg-226 mg-90 mg capsule (PreserVision AREDS) acetaminophen 325 mg tablet 650 mg PO Q4H PRN TEMP/PAIN 03/07/21 12/09/22 History (Tylenol) melatonin 3 mg tablet 3 mg PO HS 03/07/21 12/09/22 History mirtazapine 15 mg tablet (Remeron) 15 mg PO HS 03/07/21 12/09/22 History multivitamin 1 tab PO QAM 03/07/21 12/09/22 History sennosides 8.6 mg tablet (senna) 8.6 mg PO BID 03/07/21 12/09/22 History acetaminophen 325 mg tablet 650 mg PO QAM 12/09/22 12/09/22 History cholecalciferol (vitamin D3) 25 25 mcg PO QAM 12/09/22 12/09/22 History mcg (1,000 unit) tablet dextran 70-hypromellose eye drops 2 drp OPB QID 12/09/22 12/09/22 History in a dropperette (Artificial Tears (PF) drops in a dropperette) eyelid cleanser combination 3 1 pad topical AMHS 12/09/22 12/09/22 History (OcuSoft Lid Scrub Plus topical pads) gabapentin 100 mg capsule 100 mg PO AMHS 12/09/22 12/09/22 History guaifenesin 100 mg/5 mL oral liquid 200 mg PO Q4H PRN Cough 12/09/22 12/09/22 History lanolin alcohols-mineral 1 applic topical Q8 PRN Dry Skin 12/09/22 12/09/22 History oil-w.petrolatum-ceresin topical cream (Eucerin topical cream) olanzapine 5 mg tablet 5 mg PO BID 12/09/22 12/09/22 History selenium sulfide 1 % shampoo 1 applic topical 2XWK 12/09/22 12/09/22 History (Selsun Blue) sodium chloride 0.45 % 0.45 % 1 ea continuous IV infusion QS 12/09/22 12/09/22 History intravenous solution Past Med/Surg History Medical History Dementia No pertinent family history Surgical History No pertinent past surgical history Social History Smoking Status: Never smoker Second Hand Exposure: No; Do You Dip or Chew Tobacco: No (Patient unable to answer, no family present. Selection required.); Tobacco Cessation Education Requested by Patient: No Hx Alcohol Use: No Hx Substance Use: No Preferred Language: Ukrainian Communication Ability: Unable Communication Ability Comment: Patient has made no vocalizations Fleet Manager/Dispatch Required: No Beliefs That Will Affect Care: None marital status: Current Living Situation: [facility] Other Information That Helps Us Care for You: No Feels Safe at Home: Declines to Answer Safety Concerns: Feels Safe At This Time Assistive Devices: Mechanical Lift and Wheelchair Review of Systems Review of Systems: Could not be reliably obtained due to dementia Physical Exam Physical Exam: GENERAL: demented, responds to pain, no respiratory distress SKIN: Normal color, warm HEENT: [place] palpebral conjunctivae, no ptosis, dry buccal mucosa, nasal cannula in place NECK : Supple, no tenderness CHEST : Decreased breath sounds, no tenderness HEART : Irregular, tachycardic, no obvious murmurs ABDOMEN: Some distention, nontender EXTREMITIES : No LE swelling/tenderness, no other conspicuous deformities noted NEUROLOGIC : Demented, no facial asymmetry, gait and stance not assessed Results & Data Results & Data Vital Signs (Past 12 Hours) Vital Signs Pulse Pulse Resp BP BP Pulse Ox O2 Del Method 12/10/22 01:30 101 H 22 108/78 93 Nasal Cannula 12/10/22 01:35 96 H 12/10/22 01:02 99 H 18 105/77 94 Room Air 12/10/22 00:30 95 H 22 113/83 94 Nasal Cannula 12/10/22 00:05 127 H 121/41 L 12/09/22 23:37 126 H 20 142/86 H 94 Nasal Cannula 12/09/22 22:51 122 H 22 149/104 H 93 Nasal Cannula 12/09/22 22:46 Nasal Cannula 12/09/22 22:46 117 H 22 92 Nasal Cannula 12/09/22 21:52 121 H 93 Nasal Cannula 12/09/22 21:45 120 H 12/09/22 21:41 89 L 12/09/22 21:41 128 H 18 152/106 H 89 L Room Air O2 Flow Rate 12/10/22 01:30 2 12/10/22 01:35 12/10/22 01:02 12/10/22 00:30 2 12/10/22 00:05 12/09/22 23:37 2 12/09/22 22:51 2 12/09/22 22:46 12/09/22 22:46 2 12/09/22 21:52 12/09/22 21:45 12/09/22 21:41 12/09/22 21:41 Laboratory Results Laboratory Results WBC 23.21 K/ul (4.8-10.8) H 12/09/22 22:17 RBC 4.61 M/uL (4.20-5.40) 12/09/22 22:17 Hgb 14.0 g/dl (12.0-16.0) 12/09/22 22:17 Hct 44.2 % (37.0-47.0) 12/09/22 22:17 MCV 95.9 fL (80.0-100.0) 12/09/22 22:17 MCH 30.4 pg (25.0-34.0) 12/09/22 22:17 MCHC 31.7 g/dL (32.0-36.0) L 12/09/22 22:17 RDW Std Deviation 51.1 fL (36.4-46.3) H 12/09/22 22:17 RDW Coeff of Enrrique 14.5 % (11.5-14.5) 12/09/22 22:17 Plt Count 282 K/uL (130-400) 12/09/22 22:17 MPV 11.2 fL (9.4-12.4) 12/09/22 22:17 Immature Gran % (Auto) 0.9 % 12/09/22 22:17 Neut % (Auto) 77.7 % 12/09/22 22:17 Lymph % (Auto) 12.9 % 12/09/22 22:17 [place] % (Auto) 7.5 % 12/09/22 22:17 Eos % (Auto) 0.5 % 12/09/22 22:17 Baso % (Auto) 0.5 % 12/09/22 22:17 Neut # (Auto) 18.03 K/uL (1.40-6.50) H 12/09/22 22:17 Lymph # (Auto) 2.99 K/uL (1.2-3.4) 12/09/22 22:17 [place] # (Auto) 1.74 K/uL (0.11-0.59) H 12/09/22 22:17 Eos # (Auto) 0.11 K/uL (0-0.50) 12/09/22 22:17 Baso # (Auto) 0.12 K/uL (0-0.2) 12/09/22 22:17 Immature Gran # (Auto) 0.22 K/uL (0.01-0.20) H 12/09/22 22:17 PT 12.2 Seconds (9.0-12.0) H 12/09/22 22:17 INR 1.1 (0.9-1.1) 12/09/22 22:17 APTT 24.5 Seconds (21.0-31.0) 12/09/22 22: PTT Ratio 0.9 12/09/22 22:17 ABG pH 7.43 (7.35-7.45) 12/10/22 00:25 ABG pCO2 41 mmHg (35-46) 12/10/22 00:25 ABG pO2 74 mmHg (80-95) L 12/10/22 00:25 ABG HCO3 27 mmol/L (19-24) H 12/10/22 00:25 ABG O2 Saturation 97.3 % (90-95) H 12/10/22 00:25 ABG Base Excess 2.6 mEq/L (-9-1.8) H 12/10/22 00:25 German Test Pos (Pos) 12/10/22 00:25 Oxygen Given 2L 12/10/22 00:25 Sodium 149 mmol/L (136-145) H 12/09/22 22:17 Potassium 3.8 mmol/L (3.5-5.1) 12/09/22 22:17 Chloride 116 mmol/L (98-107) H 12/09/22 22:17 Carbon Dioxide 26 mmol/L (21-32) 12/09/22 22:17 Anion Gap 7 (3-11) 12/09/22 22:17 BUN 33 mg/dl (6-23) H 12/09/22 22:17 Creatinine 0.84 mg/dl (0.6-1.2) 12/09/22 22:17 Est Cr Clr Drug Dosing Not Reportable 12/09/22 22:17 Est GFR ( Amer) 72.9 ml/min 12/09/22 22:17 Est GFR (Non-Af Amer) 62.9 ml/min 12/09/22 22:17 BUN/Creatinine Ratio 39.3 (10-20) H 12/09/22 22:17 Glucose 110 mg/dl (70-99(Fasting)) H 12/09/22 22:17 Lactate 1.6 mmol/L (0.4-2.0) 12/09/22 22:17 Calcium 8.9 mg/dl (8.6-10.3) 12/09/22 22:17 Magnesium 2.2 mg/dl (1.7-2.4) 12/09/22 23:14 Total Bilirubin 1.1 mg/dl (0.2-1.0) H 12/09/22 22:17 AST 115 U/L (13-39) H 12/09/22 22:17 ALT 177 U/L (7-52) H 12/09/22 22:17 Alkaline Phosphatase 302 U/L (34-104) H 12/09/22 22:17 Troponin I High Sens 23.3 pg/ml (0-14) H 12/09/22 23:14 Total Protein 6.6 gm/dl (6.0-8.3) 12/09/22 22:17 Albumin 3.1 gm/dl (3.4-5.0) L 12/09/22 22:17 Globulin 3.5 gm/dl (2.5-4.0) 12/09/22 22:17 Albumin/Globulin Ratio 0.9 (0.9-2) 12/09/22 22:17 TSH 0.969 uIu/ml (0.300-4.500) 12/09/22 22:17 Adenovirus (PCR) Not Detected (NotDetected) 12/09/22 22:44 B. pertussis DNA (PCR) Not Detected (NotDetected) 12/09/22 22:44 B.parapertussis DNA PCR Not Detected (NotDetected) 12/09/22 22:44 C. pneumoniae DNA (PCR) Not Detected (NotDetected) 12/09/22 22:44 Coronavirus OC43 (PCR) Not Detected (NotDetected) 12/09/22 22:44 Coronavirus HKU1 (PCR) Not Detected (NotDetected) 12/09/22 22:44 Coronavirus 229E (PCR) Not Detected (NotDetected) 12/09/22 22:44 SARS-CoV-2 (PCR) Not Detected (NotDetected) 12/09/22 22:44 Coronavirus NL63 (PCR) Not Detected (NotDetected) 12/09/22 22:44 Human Metapneumovir PCR Not Detected (NotDetected) 12/09/22 22:44 Influenza Type A (PCR) Not Detected (NotDetected) 12/09/22 22:44 Influenza Type B (PCR) Not Detected (NotDetected) 12/09/22 22:44 M. pneumoniae (PCR) Not Detected (NotDetected) 12/09/22 22:44 Parainfluenza 1 (PCR) Not Detected (NotDetected) 12/09/22 22:44 Parainfluenza 2 (PCR) Not Detected (NotDetected) 12/09/22 22:44 Parainfluenza 3 (PCR) Not Detected (NotDetected) 12/09/22 22:44 Parainfluenza 4 (PCR) Not Detected (NotDetected) 12/09/22 22:44 RSV (PCR) Not Detected (NotDetected) 12/09/22 22:44 Entero/Rhino (PCR) Not Detected (NotDetected) 12/09/22 22:44 Diagnostic Findings Chest x-ray as per interpretation cardiomegaly, atelectasis, right lower lobe pneumonia EKG as per my interpretation : Rate 105, A-fib, LAD, LAFB, incomplete RBBB, nonspecific T wave abnormalities
[2022-12-10] MEDS ORDERED: METOPROLOL TARTRATE 1 MG/ML VIAL IV STA (02:36)
[2022-12-10] MEDS ORDERED: Heparin IV Adult Wt-Based Low-Dose *NO* Bolus Protocol IV STA (02:40)
[2022-12-10] MEDS ORDERED: methylPREDNISolone 20 MG in SYRINGE 0 ML IV STA (02:44)
[2022-12-10] MEDS ORDERED: HEPARIN 25000 UNIT/500 ML D5W IV ONE (02:55)
[2022-12-10] MEDS: HEPARIN SODIUM/DEXTROSE 25,000 UNITS/500 ML BAG IV SCH (03:01)
[2022-12-10 03:52] LABS: Basophils # (auto) 0.11 K/uL (0-0.2); Basophils % (auto) 0.6 %; Eosinophils # (auto) 0.13 K/uL (0-0.50); Eosinophils % (auto) 0.7 %; Hematocrit (blood only) 39.9 % (37.0-47.0); Hemoglobin 12.8 g/dl (12.0-16.0); Immature Granulocytes # (auto) 0.22 K/uL (0.01-0.20); Immature Granulocytes % (auto) 1.1 %; Lymphocytes # (auto) 2.09 K/uL (1.2-3.4); Lymphocytes % (auto) 10.7 %; Mean Corpuscular Hemoglobin 30.8 pg (25.0-34.0); Mean Corpuscular Hgb Conc 32.1 g/dL (32.0-36.0); Mean Corpuscular Volume 95.9 fL (80.0-100.0); Mean Platelet Volume 11.2 fL (9.4-12.4); Monocytes # (auto) 1.44 K/uL (0.11-0.59); Monocytes % (auto) 7.4 %; Neutrophils # (auto) 15.58 K/uL (1.40-6.50); Neutrophils % (auto) 79.5 %; Platelet Count 276 K/uL (130-400); RDW Coefficient of Variation 14.5 % (11.5-14.5); RDW Standard Deviation 51.2 fL (36.4-46.3); Red Blood Count 4.16 M/uL (4.20-5.40); White Blood Count 19.57 K/ul (4.8-10.8)
[2022-12-10 04:08] LABS: Albumin Globulin Ratio 0.9 (0.9-2); Albumin Level 2.9 gm/dl (3.4-5.0); Bilirubin,Total 0.8 mg/dl (0.2-1.0); Calcium 8.4 mg/dl (8.6-10.3); Creatinine Clr Calc Pharmacy 49.4 ml/min; Est GFR (African American) 76.2 ml/min; Est GFR (Non-African American) 65.8 ml/min; Globulin 3.1 gm/dl (2.5-4.0); Potassium 4.3 mmol/L (3.5-5.1)
[2022-12-10] MEDS ORDERED: ACETAMINOPHEN 325 MG TAB PO PRN (05:01)
[2022-12-10] MEDS: DOXYCYCLINE HYCLATE 100 MG in DEXTROSE 5% 100 ML IV SCH ×2 (06:07→20:24)
[2022-12-10] MEDS: METOPROLOL TARTRATE 1 MG/ML VIAL IV SCH ×4 (06:07→23:23)
[2022-12-10] MEDS: SENNA 8.6 MG TAB PO SCH ×2 (06:57→20:31)
[2022-12-10] MEDS ORDERED: XOPENEX/ATROVENT 1.25mg/0.5MG NEB COMBO NEB SCH (08:00)
--- NOTE | 2022-12-10 08:22 | XRay Report ---
SINGLE VIEW CHEST CLINICAL HISTORY: Atypical chest pain. FINDINGS: An AP, portable, upright chest radiograph is compared to study dated 03/06/2021. The examina tion is degraded by portable technique and patient rotation. The heart is enlarged noting atheroscle rotic calcification of the thoracic aorta. The pulmonary vasculature is noncongested. There is airspa ce consolidation at the right lung base. Left basilar opacities are also noted. No large pleural effu janki or pneumothorax is seen. The skeletal structures are osteopenic. The bony thorax is grossly inta ct. Arthritic change is noted in the shoulders and spine. IMPRESSION: 1. Cardiomegaly without radiographic evidence of congestive failure. 2. Right basilar consolidation is typical for pneumonia/aspiration pneumonitis. Clinical correlation will be required and radiographic follow-up to resolution is recommended. 3. Left basilar opacities could represent scarring/atelectasis versus a mild pneumonitis. ACT 112: Negative or not required by law. Electronically signed by: Abisai Mcghee M.D. 12/10/2022 8:21 AM
[2022-12-10] MEDS: OLANZapine 5 MG TABLET PO SCH ×2 (08:29→20:31)
[2022-12-10] MEDS: MULTIVITAMIN TAB PO SCH (08:29)
[2022-12-10] MEDS: CEROVITE ADV FORMULA TAB PO SCH ×2 (08:29→20:30)
[2022-12-10] MEDS ORDERED: DOXYCYCLINE HYCLATE 100 MG in DEXTROSE 5% 100 ML IV SCH (09:00)
[2022-12-10] MEDS ORDERED: METOPROLOL TARTRATE 25 MG TAB PO SCH (09:00)
[2022-12-10] MEDS ORDERED: PNEUMOCOCCAL POLYSACCHARIDES 25 MCG/0.5 ML VIAL/SYR IM ONE (09:00)
[2022-12-10] MEDS ORDERED: DOXYCYCLINE HYCLATE 100 MG CAP PO SCH (09:00)
--- NOTE | 2022-12-10 09:12 | Ultrasound Report ---
ULTRASOUND RIGHT UPPER QUADRANT ABDOMEN CLINICAL HISTORY: Abnormal liver function studies. COMPARISON STUDY: No priors. TECHNIQUE: Real-time, grayscale, and color flow sonography of the right upper quadrant of the abdomen was performed. Images are reviewed in the transverse and longitudinal planes. FINDINGS: Liver: The liver is top normal in size. Echotexture is normal. There is no intrahepatic biliary ducta l dilatation. The main portal vein is patent. Gallbladder: There are shadowing calcified gallstones. There is no gallbladder wall thickening or per icholecystic fluid. A sonographic Saba's sign could not be assessed due to patient's mental status. The common bile duct measures up to 0.3 cm in diameter. Pancreas: Visualized portions of the pancreatic head and body are normal in appearance. Right kidney: Survey images of the right kidney demonstrate normal size and echotexture. There is no hydronephrosis. Trace perinephric fluid is noted. Ascites: None. IMPRESSION: 1. Normal sonographic appearance of the liver. 2. Cholelithiasis without sonographic evidence of acute cholecystitis ACT 112: Negative or not required by law. Electronically signed by: Abisai Mcghee M.D. 12/10/2022 9:11 AM
[2022-12-10] MEDS: PIPERACILLIN/TAZOBACTAM 4.5 GM in DEXTROSE 5% 100 ML IV SCH ×3 (09:28→23:21)
[2022-12-10] MEDS: LEVALBUTEROL 1.25MG/0.5ML NEB INH SCH ×3 (09:35→19:42)
[2022-12-10] MEDS: IPRATROPIUM BROMIDE NEB SOLN 0.02% 2.5 ML VIAL INH SCH ×3 (09:35→19:41)
--- NOTE | 2022-12-10 09:56 | CT Scan Report ---
CT chest diagnostic wo con CT DOSE: 375.21 mGy.cm HISTORY: pneumonia, r/o effusion TECHNIQUE: Multiaxial CT images of the chest were performed without contrast. A dose lowering techni que was utilized adhering to the principles of ALARA. COMPARISON: Chest 12/09/2022. FINDINGS: There is dextroscoliosis of the thoracic spine which could be positional. There are old, he aled right anterior rib fractures. No acute fractures identified within the chest. Limited views of t he upper abdomen demonstrate a normal liver, spleen, and adrenal glands. Normal esophagus. The heart is mildly enlarged. Moderate coronary artery calcifications are noted. Normal caliber thoracic aorta with mild calcified plaque. No pleural or pericardial effusions. Subcentimeter mediastinal and bilate ral hilar lymph nodes do not meet CT criteria for pathologic involvement. Trace mucoid material withi n the trachea and mainstem bronchi. There is partial opacification of the bilateral lower lobe bronch i. No pneumothorax. Small patchy airspace opacities seen within the left lower lobe. Focal dense cons olidation within the right lower lobe posteriorly with associated air bronchograms consistent with a pneumonia. There is an additional focal airspace opacity within the right lower lobe in image 146 dem onstrating a groundglass halo. This also favors an infectious process. There is a 5 mm groundglass no dule within the right upper lobe posteriorly on image 99. IMPRESSION: 1. Bilateral airspace opacities, right greater than left, with partial opacification of bilateral low er lobe bronchi. This favors a pneumonia and could be due to aspiration. 2. Small nodular densities within the right upper lobe posteriorly and superior segment of the right lower lobe also favor an infectious process. However, 3- [address] follow-up recommended to en sure resolution of these nodular densities and the lower lobe airspace opacities. 3. No pleural effusion. 4. Mild cardiomegaly. ACT 112: Negative or not required by law. Electronically signed by: Vance Shook M.D. 12/10/2022 9:54 AM
[2022-12-10 10:29] LABS: Partial Thromboplastin Ratio 1.2; Partial Thromboplastin Time 32.5 Seconds (21.0-31.0)
--- NOTE | 2022-12-10 10:50 | Hospitalist Progress Note ---
Date of Service December 10, 2022 Assessment & Plan (1) Severe sepsis: Plan: Bilateral pneumonia, possible aspiration related Acute hypoxic respiratory failure --CT chest: 1. Bilateral airspace opacities, right greater than left, with partial opaci fication of bilateral lower lobe bronchi. This favors a pneumonia and could be due to aspiration. 2. Small nodular densities within the right upper lobe posteriorly and superior segment of the right lower lobe also favor an infectious process. However, 3- [address] follow-up recommended to ensure resolution of these nodular densities and the lower lobe airspace opacities. 3. No pleural effusion. 4. Mild cardiomegaly. --Respiratory panel: Negative Nasal MRSA: Negative Blood cultures: Pending --Remains on 2 L of oxygen Follow-up blood cultures --Continue Zosyn plus doxycycline Nebs 4 times daily with Mucomyst twice daily started Suctioning as needed per greenhouse staff - will need speech therapy evaluation once mental status is improved New onset A-fib -- Likely secondary to underlying pneumonia, hypoxia --Heart rate in the 110s --Continue IV metoprolol2.5 mg IV every 6 hours Currently on heparin drip Echocardiogram: Pending Cardiology service consulted Abnormal LFTs -Improving Liver ultrasound: 1. Normal sonographic appearance of the liver. 2. Cholelithiasis without sonographic evidence of acute cholecystitis -Monitor Dementia -Usual medications on hold due to mental status Resume accordingly past tobacco abuse DVT prophylaxis. IV heparin DNR as per patient's prior directives. Disposition Anticipate discharge to custodial facility when medically stable Admission and Anticipated Discharge Date Admission Date: December 10, 2022 Subjective Follow-up for hypoxic respite failure, pneumonia, A-fib, etc. seen resting in bed, comfortable, not in distress On 2 L of oxygen by nasal cannula Patient is awake but eyes are closed, talking but not making any sense Does not answer questions Having a harsh, wet cough No signs of pain trauma coordinator showing A-fib, heart rate 112 No other issues noted per primary products inspectors of Systems Review of Systems: all noted and negative except for above Physical Exam Physical Exam: General-confused, not in distress, breathing with no effort or accessory muscle use Head- atraumatic Eyes- PERRL, EOMI, anicteric ENT- oropharynx clear Neck- supple, no JVD, no adenopathy, no thyromegaly; carotids +2/2, no bruits appreciated Lungs-positive rhonchi bilateral bases, no wheezing, good air entry bilaterally Heart- normal rate, regular rhythm; no murmur, no gallop, no rub appreciated Abdomen- normal bowel sounds, nondistended, soft, nontender, no masses or hepatosplenomegaly Extremities- no pretibial edema, no calf tenderness; peripheral pulses intact Neuro- alert, confused; CN 2-12 grossly intact; motor 5/5 bilaterally;sensation 100% on all extremities; no other gross focal neurologic deficits Skin- warm & dry Results & Data Results & Data Vital Signs (Past 12 Hours) Vital Signs Temp Pulse Pulse Resp BP BP Pulse Ox 12/10/22 09:35 92 H 18 95 12/10/22 07:12 36.4 C L 89 17 134/97 96 12/10/22 06:07 101 H 129/84 12/10/22 05:04 36.6 C 75 20 129/84 95 12/10/22 05:18 98 H 12/10/22 05:03 12/10/22 04:27 36.3 C L 102 H 18 115/74 94 12/10/22 02:58 109 H 20 133/80 12/10/22 02:32 114 H 22 131/82 94 12/10/22 01:30 101 H 22 108/78 93 12/10/22 01:35 96 H 12/10/22 01:02 99 H 18 105/77 94 12/10/22 00:30 95 H 22 113/83 94 12/10/22 00:05 127 H 121/41 L 12/09/22 23:37 126 H 20 142/86 H 94 12/09/22 22:51 122 H 22 149/104 H 93 12/09/22 22:46 12/09/22 22:46 117 H 22 92 O2 Del Method O2 Flow Rate 12/10/22 09:35 Nasal Cannula 2 12/10/22 07:12 Nasal Cannula 2 12/10/22 06:07 12/10/22 05:04 Nasal Cannula 2 12/10/22 05:18 12/10/22 05:03 Nasal Cannula 2 12/10/22 04:27 Nasal Cannula 2 12/10/22 02:58 12/10/22 02:32 Nasal Cannula 2 12/10/22 01:30 Nasal Cannula 2 12/10/22 01:35 12/10/22 01:02 Room Air 12/10/22 00:30 Nasal Cannula 2 12/10/22 00:05 12/09/22 23:37 Nasal Cannula 2 12/09/22 22:51 Nasal Cannula 2 12/09/22 22:46 Nasal Cannula 12/09/22 22:46 Nasal Cannula 2
[2022-12-10] MEDS: ACETYLCYSTEINE 10% INHAL SOLN 4 ML **DISPENSED BY RESP. INH SCH ×2 (12:40→19:41)
--- NOTE | 2022-12-10 13:27 | Electrocardiogram Report ---
Test Reason : Blood Pressure : / mmHG Vent. Rate : 105 BPM Atrial Rate : 000 BPM P-R Int : 000 ms QRS Dur : 084 ms QT Int : 334 ms P-R-T Axes : 000 -30 265 degrees QTc Int : 441 ms Atrial fibrillation with rapid ventricular response Left axis deviation Possible Anterior infarct (cited on or before 09-DEC-2022) Abnormal ECG When compared with ECG of 07-MAR-2021 00:30, Atrial fibrillation is now Present Confirmed by Jasvir Marion ([id number]) on 12/10/2022 1:26:54 PM Referred By: Ja Boggs Confirmed By:Jasvir Marion
[2022-12-10 17:12] LABS: Partial Thromboplastin Ratio 1.3; Partial Thromboplastin Time 36.1 Seconds (21.0-31.0)
--- NOTE | 2022-12-10 18:02 | Cardiology Consultation ---
Date of Consultation December 10, 2022 Assessment & Plan (1) Paroxysmal atrial fibrillation: - Patient presents with recent viral respiratory tract infection now with suspected superimposed pneumonia, aspiration suspected based on chest x-ray and CT findings. -Urinalysis also suggests urinary tract infection. -Patient has baseline dementia, and subjective history limited. -New onset atrial fibrillation observed. Patient currently not taking oral medications. Agree with IV metoprolol 2.5 mg IV every 6 hours, and unfractioned heparin. It is too early to determine if she will need long-term anticoagulation or if she would be a candidate. -Continue antibiotics as per hospitalist service. -DVT prophylaxis: She is on full anticoagulation dose unfractioned heparin infusion. History of Present Illness Attending Physician: Brett Dai MD History of Present Illness Maryjane Justin is an 87-year-old female seen in cardiology consultation per the request of Dr. Becerra for the evaluation of new onset atrial fibrillation. The patient was resting comfortably at the time my assessment. She is a resident at [facility]. Per review of her outpatient chart, she had been assessed acutely by a provider at the [facility] for a change in condition. Last week the patient was found to have an upper respiratory tract infection with having tested positive for rhinovirus on a respiratory panel. She has had intermittent vomiting, and worsening cough as of yesterday. A temperature of 100.2 F have been noted leading up to her presen tation to the emergency room. The patient has an underlying history of dementia. EKG performed in the emergency department last evening 12/09/2022 at 2143 revealed atrial fibrillation at 105 bpm. Poor R wave progression noted in the precordial leads and therefore an age-indeterminate anterior infarct cannot be excluded. Compared to the previous tracing dating back to 03/07/2021, atrial fibrillation had replaced sinus rhythm. Allergies Allergy/AdvReac Type Severity Reaction Status Date / Time No Known Allergies Allergy Verified 03/07/21 01:31 Home Medications Medication Instructions Recorded Confirmed Type vitamins A,C,H-lcmd-dmpcce 4,296 1 cap PO AMHS 02/09/20 12/09/22 History mcg-226 mg-90 mg capsule (PreserVision AREDS) acetaminophen 325 mg tablet 650 mg PO Q4H PRN TEMP/PAIN 03/07/21 12/09/22 History (Tylenol) melatonin 3 mg tablet 3 mg PO HS 03/07/21 12/09/22 History mirtazapine 15 mg tablet (Remeron) 15 mg PO HS 03/07/21 12/09/22 History multivitamin 1 tab PO QAM 03/07/21 12/09/22 History sennosides 8.6 mg tablet (senna) 8.6 mg PO BID 03/07/21 12/09/22 History acetaminophen 325 mg tablet 650 mg PO QAM 12/09/22 12/09/22 History cholecalciferol (vitamin D3) 25 25 mcg PO QAM 12/09/22 12/09/22 History mcg (1,000 unit) tablet dextran 70-hypromellose eye drops 2 drp OPB QID 12/09/22 12/09/22 History in a dropperette (Artificial Tears (PF) drops in a dropperette) eyelid cleanser combination 3 1 pad topical AMHS 12/09/22 12/09/22 History (OcuSoft Lid Scrub Plus topical pads) gabapentin 100 mg capsule 100 mg PO AMHS 12/09/22 12/09/22 History guaifenesin 100 mg/5 mL oral liquid 200 mg PO Q4H PRN Cough 12/09/22 12/09/22 History lanolin alcohols-mineral 1 applic topical Q8 PRN Dry Skin 12/09/22 12/09/22 History oil-w.petrolatum-ceresin topical cream (Eucerin topical cream) olanzapine 5 mg tablet 5 mg PO BID 12/09/22 12/09/22 History selenium sulfide 1 % shampoo 1 applic topical 2XWK 12/09/22 12/09/22 History (Selsun Blue) sodium chloride 0.45 % 0.45 % 1 ea continuous IV infusion QS 12/09/22 12/09/22 History intravenous solution Patient History Medical History Dementia No pertinent family history Surgical History No pertinent past surgical history Social History Smoking Status: Never smoker Second Hand Exposure: No; Do You Dip or Chew Tobacco: No (Patient unable to answer, no family present. Selection required.); Tobacco Cessation Education Requested by Patient: No Hx Alcohol Use: No Hx Substance Use: No Preferred Language: [place] Communication Ability: Impaired Communication Ability Comment: Patient has made no vocalizations Brewery Pumper Required: No Beliefs That Will Affect Care: None marital status: Current Living Situation: [facility] Other Information That Helps Us Care for You: No Feels Safe at Home: Declines to Answer Safety Concerns: Feels Safe At This Time Assistive Devices: Mechanical Lift and Wheelchair Review of Systems Review of Systems: Unobtainable due to cognitive status Physical Exam Constitutional: no acute distress Respiratory: + cough Auscultation: no crackles, no rales and no wheezes Cardiovascular: Rate/Rhythm: + tachycardic and + irregularly irregular Heart Sounds: no murmur Gastrointestinal (Abdomen): normal bowel sounds, soft, nontender, no hepatosplenomegaly Neurologic: Exam limited by patient's lethargy and underlying cognitive status. Genitourinary: External catheter in place draining clear yellow urine Results & Data Vital Signs (Past 12 Hours) Vital Signs Temp Pulse Pulse Resp BP BP Pulse Ox 12/10/22 17:36 99 H 110/62 12/10/22 16:10 36.6 C 88 18 109/65 100 12/10/22 12:43 90 18 96 12/10/22 12:05 36.4 C L 95 H 18 102/68 94 12/10/22 09:35 92 H 18 95 12/10/22 07:12 36.4 C L 89 17 134/97 96 12/10/22 06:07 101 H 129/84 O2 Del Method O2 Flow Rate 12/10/22 17:36 12/10/22 16:10 Nasal Cannula 2 12/10/22 12:43 Nasal Cannula 2 12/10/22 12:05 Nasal Cannula 2 12/10/22 09:35 Nasal Cannula 2 12/10/22 07:12 Nasal Cannula 2 12/10/22 06:07 Laboratory Results Cardiac Enzymes 12/09/22 12/09/22 12/10/22 Range/Units 22:17 23:14 03:42 AST 115 H 109 H (13-39) U/L Troponin I High Sens 23.8 H 23.3 H (0-14) pg/ml Coagulation 12/09/22 12/10/22 12/10/22 Range/Units 22:17 09:44 16:23 PT 12.2 H (9.0-12.0) Seconds APTT 24.5 32.5 H 36.1 H (21.0-31.0) Seconds CBC 12/09/22 12/10/22 Range/Units 22:17 03:42 WBC 23.21 H 19.57 H (4.8-10.8) K/ul RBC 4.61 4.16 L (4.20-5.40) M/uL Hgb 14.0 12.8 (12.0-16.0) g/dl Hct 44.2 39.9 (37.0-47.0) % Plt Count 282 276 (130-400) K/uL Neut # (Auto) 18.03 H 15.58 H (1.40-6.50) K/uL Lymph # (Auto) 2.99 2.09 (1.2-3.4) K/uL [place] # (Auto) 1.74 H 1.44 H (0.11-0.59) K/uL Eos # (Auto) 0.11 0.13 (0-0.50) K/uL Baso # (Auto) 0.12 0.11 (0-0.2) K/uL Comprehensive Metabolic Panel 12/09/22 12/10/22 Range/Units 22:17 03:42 Sodium 149 H 145 (136-145) mmol/L Potassium 3.8 4.3 (3.5-5.1) mmol/L Chloride 116 H 115 H (98-107) mmol/L Carbon Dioxide 26 24 (21-32) mmol/L BUN 33 H 30 H (6-23) mg/dl Creatinine 0.84 0.81 (0.6-1.2) mg/dl Glucose 110 H 132 H (70-99(Fasting)) mg/dl Calcium 8.9 8.4 L (8.6-10.3) mg/dl AST 115 H 109 H (13-39) U/L ALT 177 H 159 H (7-52) U/L Alkaline Phosphatase 302 H 263 H (34-104) U/L Total Protein 6.6 6.0 (6.0-8.3) gm/dl Albumin 3.1 L 2.9 L (3.4-5.0) gm/dl Intake and Output 12/10/22 12/10/22 12/10/22 06:59 14:59 22:59 Intake Total 1559 / 1559 120 / 1120 1000 / 1120 Output Total 250 / 250 Balance 1558 / 1558 120 / 870 750 / 870 Intake: IV 1559 / 1559 120 / 1120 1000 / 1120 Doxycycline Hyclate 100 mg In 110 / 110 Dextrose 5% 100 ml @ 50 mls/hr IV NOW ST[facility] Rx#:[id number] Heparin Sodium/Dextrose 25,000 59 / 59 units In 500 ml @ 750 UNITS/HR 15 mls/hr IV .Q24H [facility] Rx#: [id number] Piperacillin/Tazobactam 4.5 gm 120 / 120 In 120 ml @ 240 mls/hr IV NOW ONE Rx#:[id number] Piperacillin/Tazobactam 4.5 gm 120 / 120 In Dextrose 5% 100 ml @ 30 mls/ hr IV Q8H [facility] Rx#:[id number] Potassium Chloride / Wtr 10 meq 200 / 200 In 100 ml @ 100 mls/hr IV Q1H [facility] Rx#:[id number] Sodium Chloride 0.45 % 1,000 ml 1000 / 1000 @ 75 mls/hr IV .[id number] [facility] Rx #:[id number] Sodium Chloride 0.9% 1000ML 1, 1000 / 1000 000 ml @ 999 mls/hr IV .Q1H1M ONE Rx#:[id number] cefTRIAXone SODIUM 2,000 mg In 70 / 70 70 ml @ 140 mls/hr IV NOW STA Rx#:[id number] Output: Urine Amount (Catheter) 250 / 250 External 250 / 250 # Bowel Movements Other: Other Intake Source NPO Weight 69.1 kg Weight Measurement Method Built in [facility] Diagnostic Findings Summary of radiology report of chest CT describes bilateral airspace opacities right greater than left with partial opacification of the bilateral lower lobe bronchi possibly related to aspiration pneumonia Small nodular densities within the right upper lobe posteriorly No pleural effusion Echocardiogram performed 12/10/2022 and interpreted independently: Atrial fibrillation with ventricular rate around 100 bpm present during the echocardiogram. There is mild concentric left ventricular hypertrophy Left ventricular wall motion is normal The LVEF is normal at 55 to 60% Severe left atrial dilatation present Mild right atrial dilatation present Mild aortic valve sclerosis without stenosis is present Mild mitral vegetation
[2022-12-10] MEDS: MELATONIN 3 MG TAB PO SCH (20:30)
[2022-12-10 21:54] LABS: Appearance Urine Turbid (Clear); Bacteria Urine Automated Negative (Negative); Bilirubin Urine Negative (Negative); Blood Urine 3+ (Negative); Color Urine Dark Yellow; Glucose Urine UA Negative (Negative); Ketones Urine Negative (Negative); Leukocyte Esterase Urine 1+ (Negative); Nitrite Urine Negative (Negative); Protein Urine 2+ (Negative); Specific Gravity Urine 1.038 (1.000-1.030); Urobilinogen Urine Negative (Negative); WBC Urine Automated >30 /hpf (0-5); pH Urine 5.5 (4.5-7.5)
[2022-12-10 22:29] LABS: RBC Urine Automated >30 /hpf (0-4)
[2022-12-10 22:31] LABS: Uric Acid Crystals Urine Present (None Prsent)
[2022-12-11 01:40] LABS: Partial Thromboplastin Ratio 1.5
[2022-12-11 01:46] LABS: Partial Thromboplastin Time 43.3 Seconds (21.0-31.0)
[2022-12-11] MEDS: LEVALBUTEROL 1.25MG/0.5ML NEB INH SCH ×4 (01:49→19:06)
[2022-12-11] MEDS: IPRATROPIUM BROMIDE NEB SOLN 0.02% 2.5 ML VIAL INH SCH ×4 (01:49→19:06)
[2022-12-11] MEDS: METOPROLOL TARTRATE 1 MG/ML VIAL IV SCH ×4 (05:14→23:55)
[2022-12-11] MEDS: DOXYCYCLINE HYCLATE 100 MG in DEXTROSE 5% 100 ML IV SCH ×3 (05:14→20:09)
[2022-12-11] MEDS: ACETYLCYSTEINE 10% INHAL SOLN 4 ML **DISPENSED BY RESP. INH SCH ×2 (07:11→19:06)
[2022-12-11] MEDS: PIPERACILLIN/TAZOBACTAM 4.5 GM in DEXTROSE 5% 100 ML IV SCH ×3 (08:13→23:56)
[2022-12-11] MEDS: MULTIVITAMIN TAB PO SCH (08:14)
[2022-12-11] MEDS: OLANZapine 5 MG TABLET PO SCH ×2 (08:14→20:10)
[2022-12-11] MEDS: CEROVITE ADV FORMULA TAB PO SCH ×2 (08:14→20:10)
[2022-12-11] MEDS: SENNA 8.6 MG TAB PO SCH ×2 (08:14→20:10)
[2022-12-11 09:40] LABS: Partial Thromboplastin Ratio 1.6
[2022-12-11 09:50] LABS: Partial Thromboplastin Time 44.4 Seconds (21.0-31.0)
[2022-12-11] MEDS: HEPARIN SODIUM/DEXTROSE 25,000 UNITS/500 ML BAG IV SCH (09:55)
[2022-12-11 10:02] LABS: Basophils # (auto) 0.04 K/uL (0-0.2); Basophils % (auto) 0.3 %; Eosinophils # (auto) 0.08 K/uL (0-0.50); Eosinophils % (auto) 0.5 %; Hematocrit (blood only) 40.8 % (37.0-47.0); Hemoglobin 13.3 g/dl (12.0-16.0); Immature Granulocytes # (auto) 0.36 K/uL (0.01-0.20); Immature Granulocytes % (auto) 2.5 %; Lymphocytes # (auto) 2.82 K/uL (1.2-3.4); Lymphocytes % (auto) 19.3 %; Mean Corpuscular Hemoglobin 30.5 pg (25.0-34.0); Mean Corpuscular Hgb Conc 32.6 g/dL (32.0-36.0); Mean Corpuscular Volume 93.6 fL (80.0-100.0); Mean Platelet Volume 11.7 fL (9.4-12.4); Monocytes # (auto) 0.71 K/uL (0.11-0.59); Monocytes % (auto) 4.9 %; Neutrophils % (auto) 72.5 %; Platelet Count 311 K/uL (130-400); RDW Coefficient of Variation 13.8 % (11.5-14.5); RDW Standard Deviation 47.8 fL (36.4-46.3); Red Blood Count 4.36 M/uL (4.20-5.40); White Blood Count 14.61 K/ul (4.8-10.8)
[2022-12-11 11:22] LABS: Calcium 8.6 mg/dl (8.6-10.3); Creatinine Clr Calc Pharmacy 45.3 ml/min; Est GFR (African American) 69.9 ml/min; Est GFR (Non-African American) 60.3 ml/min; Potassium 3.2 mmol/L (3.5-5.1)
--- NOTE | 2022-12-11 13:33 | Cardiology Progress Note ---
Date of Service December 11, 2022 Assessment & Plan (1) Paroxysmal atrial fibrillation: Plan: - Patient presents with recent viral respiratory tract infection now with suspected superimposed pneumonia, aspiration suspected based on chest x-ray and CT findings. -Urinalysis also suggests urinary tract infection. -Patient has baseline dementia, and subjective history limited. -New onset atrial fibrillation observed (chronicity / acuity unknown). Patient currently not taking oral medications. Agree with IV metoprolol 2.5 mg IV every 6 hours, and unfractioned heparin. It is too early to determine if she will need long-term anticoagulation or if she would be a candidate. -Continue antibiotics as per hospitalist service. -DVT prophylaxis: She is on full anticoagulation dose unfractionated heparin infusion. (2) Hypokalemia: Plan: - Since not tolerating oral medications, I have ordered 3 potassium riders intravenously. (3) Dementia: Plan: - Not certain what her baseline mental status is (4) Pneumonia: Plan: - Continue piperacillin tazobactam, doxycycline (5) Acute UTI (urinary tract infection): Plan: - Continue antibiotics as noted above Admission and Anticipated Discharge Date Admission Date: December 10, 2022 Subjective Patient seen in cardiology follow-up of atrial fibrillation. Ongoing atrial fibrillation with rates in the range of 90 to 100 bpm noted. She remains on a heparin infusion. She acknowledges request today, but does not provide any lg ningful history or complaints. She has a chart history of dementia, I am not certain where we are compared to her baseline level of mentation. She is afebrile. Physical Exam Constitutional: no acute distress Respiratory: + cough Auscultation: no crackles, no rales and no wheezes Cardiovascular: Rate/Rhythm: + tachycardic and + irregularly irregular Heart Sounds: no murmur Gastrointestinal (Abdomen): normal bowel sounds, soft, nontender, no hepatosplenomegaly Results & Data Vital Signs (Past 12 Hours) Vital Signs Temp Pulse Pulse Resp BP BP Pulse Ox 12/11/22 12:00 36.5 C 109 H 20 128/88 12/11/22 11:37 110 H 12/11/22 08:00 81 12/11/22 08:00 36.5 C 67 20 114/72 12/11/22 07:11 62 18 93 12/11/22 05:14 90 130/92 12/11/22 03:28 36.5 C 89 20 112/74 92 12/11/22 01:49 75 18 95 O2 Del Method O2 Flow Rate 12/11/22 12:00 Room Air 12/11/22 11:37 12/11/22 08:00 12/11/22 08:00 Nasal Cannula 4 12/11/22 07:11 Nasal Cannula 2 12/11/22 05:14 12/11/22 03:28 Nasal Cannula 2 12/11/22 01:49 Nasal Cannula 2 Laboratory Results Coagulation 12/10/22 12/11/22 12/11/22 Range/Units 16:23 00:37 08:39 APTT 36.1 H 43.3 H* 44.4 H* (21.0-31.0) Seconds CBC 12/11/22 Range/Units 08:42 WBC 14.61 H (4.8-10.8) K/ul RBC 4.36 (4.20-5.40) M/uL Hgb 13.3 (12.0-16.0) g/dl Hct 40.8 (37.0-47.0) % Plt Count 311 (130-400) K/uL Neut # (Auto) 10.60 H (1.40-6.50) K/uL Lymph # (Auto) 2.82 (1.2-3.4) K/uL [place] # (Auto) 0.71 H (0.11-0.59) K/uL Eos # (Auto) 0.08 (0-0.50) K/uL Baso # (Auto) 0.04 (0-0.2) K/uL Comprehensive Metabolic Panel 12/11/22 Range/Units 08:42 Sodium 144 (136-145) mmol/L Potassium 3.2 L D (3.5-5.1) mmol/L Chloride 110 H (98-107) mmol/L Carbon Dioxide 25 (21-32) mmol/L BUN 27 H (6-23) mg/dl Creatinine 0.87 (0.6-1.2) mg/dl Glucose 109 H (70-99(Fasting)) mg/dl Calcium 8.6 (8.6-10.3) mg/dl Intake and Output 12/10/22 12/11/22 12/11/22 22:59 06:59 14:59 Intake Total 1522.65 / 1872.25 229.6 / 1872.25 358 / 358 Output Total 370 / 370 Balance 1152.65 / 1502.25 229.6 / 1502.25 358 / 358 Intake: IV 1522.65 / 1872.25 229.6 / 1872.25 358 / 358 Doxycycline Hyclate 100 mg In 220 / 220 110 / 110 Dextrose 5% 100 ml @ 50 mls/hr IV BID@0600,2000 [facility] Rx#: [id number] Heparin Sodium/Dextrose 25,000 182.65 / 292.25 109.6 / 292.25 128 / 128 units In 500 ml @ 800 UNITS/HR 16 mls/hr IV .Q24H [facility] Rx#: [id number] Piperacillin/Tazobactam 4.5 gm 120 / 360 120 / 360 120 / 120 In Dextrose 5% 100 ml @ 30 mls/ hr IV Q8H [facility] Rx#:[id number] Sodium Chloride 0.45 % 1,000 ml 1000 / 1000 @ 75 mls/hr IV .[id number] [facility] Rx #:[id number] Output: Urine Amount (Catheter) 370 / 370 External 370 / 370 Other: Other Intake Source NPO Weight 69.1 kg (3) Dementia Alzheimer's disease onset: other onset Dementia behavioral disturbance: without behavioral disturbance Dementia type: Alzheimer's Qualified Code(s): G30.8 - Other Alzheimer's disease; F02.80 - Dementia in other diseases classified elsewhere without behavioral disturbance (4) Pneumonia Laterality: right Lung location: lower lobe of lung Pneumonia type: due to unspecified organism Qualified Code(s): J18.9 - Pneumonia, unspecified organism
[2022-12-11] MEDS: POTASSIUM CHLORIDE / WTR 10 MEQ/100 ML PLCT IV SCH ×3 (13:44→15:48)
[2022-12-11] MEDS ORDERED: METOPROLOL TARTRATE 1 MG/ML VIAL IV PRN (15:44)
[2022-12-11] MEDS: METOPROLOL TARTRATE 1 MG/ML VIAL IV PRN (15:55)
[2022-12-11] MEDS: D5NSS + 20MEQ KCL 20 MEQ/1,000 ML BAG IV SCH (16:47)
--- NOTE | 2022-12-11 17:27 | Hospitalist Progress Note ---
Date of Service December 11, 2022 Assessment & Plan (1) Severe sepsis: Plan: Bilateral pneumonia, possible aspiration related Acute hypoxic respiratory failure --CT chest: 1. Bilateral airspace opacities, right greater than left, with partial opaci fication of bilateral lower lobe bronchi. This favors a pneumonia and could be due to aspiration. 2. Small nodular densities within the right upper lobe posteriorly and superior segment of the right lower lobe also favor an infectious process. However, 3- [address] follow-up recommended to ensure resolution of these nodular densities and the lower lobe airspace opacities. 3. No pleural effusion. 4. Mild cardiomegaly. --Respiratory panel: Negative Nasal MRSA: Negative Blood cultures: Negative so far --Remains on 2 L of oxygen Follow-up blood cultures --Continue Zosyn plus doxycycline Nebs 4 times daily with Mucomyst twice daily started Suctioning as needed per staff developer - will need speech therapy evaluation once mental status is improved 12/11 Patient somewhat more interactive today compared to yesterday Continue Zosyn plus doxycycline Nebs, Mucomyst Speech therapy evaluation tomorrow Wean of oxygen accordingly UTI Urine culture from [facility] growing Proteus, sensitive to Zosyn Continue with Zosyn New onset A-fib -- Likely secondary to underlying pneumonia, hypoxia --Heart rate in the 110s --Continue IV metoprolol2.5 mg IV every 6 hours Currently on heparin drip Echocardiogram: Normal left ventricular wall motion, EF 55 to 60%, left atrium severely dilated, no significant aortic valvular stenosis, mild mitral regurg Cardiology service consulted 12/11 Continue metoprolol 2.5 mg IV every 6 hours Continue heparin drip Cardiology service on board, appreciate recommendations Abnormal LFTs -Improving Liver ultrasound:1. Normal sonographic appearance of the liver. 2. Cholelithiasis without sonographic evidence of acute cholecystitis -Monitor Dementia -Usual medications on hold due to mental status Resume accordingly past tobacco abuse DVT prophylaxis. IV heparin DNR as per patient's prior directives. Disposition Anticipate discharge to alf facility when medically stable Admission and Anticipated Discharge Date Admission Date: December 10, 2022 Subjective For pneumonia, etc. Seen resting in bed, awake and alert, answers some questions with yes or no Still speaking random words remains on 2 L of oxygen via nasal Not in distress, no signs of pain States she feels fine overall Denies shortness of breath, or pain No other issues per dietetic technician of Systems Review of Systems: all noted and negative except for above Physical Exam Physical Exam: General-not in distress, not in distress, breathing with no effort or accessory muscle use Eyes- anicteric Neck- no JVD Lungs-positive mild rhonchi bilaterally, no wheezing Heart-mild tachycardia, irregularly irregular rhythm; no murmurs Abdomen- normal bowel sounds, nondistended, soft, nontender Extremities- no pretibial edema, no calf tenderness Neuro- alert, oriented x 2; no gross focal neurologic deficits Skin- warm & dry Results & Data Results & Data Vital Signs (Past 12 Hours) Vital Signs Temp Pulse Pulse Resp BP Pulse Ox O2 Del Method 12/11/22 16:05 36.7 C 130 H 18 108/74 97 Room Air 12/11/22 15:55 132 H 12/11/22 15:20 116 H 12/11/22 13:31 107 H 20 96 Nasal Cannula 12/11/22 12:00 36.5 C 109 H 20 128/88 Room Air 12/11/22 11:37 110 H 12/11/22 08:00 81 12/11/22 08:00 36.5 C 67 20 114/72 Nasal Cannula 12/11/22 07:11 62 18 93 Nasal Cannula O2 Flow Rate 12/11/22 16:05 12/11/22 15:55 12/11/22 15:20 12/11/22 13:31 2 12/11/22 12:00 12/11/22 11:37 12/11/22 08:00 12/11/22 08:00 4 12/11/22 07:11 2 all noted and reviewed including below
[2022-12-11] MEDS: MELATONIN 3 MG TAB PO SCH (20:09)
[2022-12-12] MEDS: LEVALBUTEROL 1.25MG/0.5ML NEB INH SCH ×4 (01:52→19:11)
[2022-12-12] MEDS: IPRATROPIUM BROMIDE NEB SOLN 0.02% 2.5 ML VIAL INH SCH ×4 (01:52→19:11)
[2022-12-12] MEDS: METOPROLOL TARTRATE 1 MG/ML VIAL IV SCH ×3 (05:14→17:44)
[2022-12-12] MEDS: DOXYCYCLINE HYCLATE 100 MG in DEXTROSE 5% 100 ML IV SCH ×2 (05:14→19:27)
[2022-12-12] MEDS: D5NSS + 20MEQ KCL 20 MEQ/1,000 ML BAG IV SCH ×2 (05:15→17:44)
[2022-12-12 06:16] LABS: Basophils # (auto) 0.07 K/uL (0-0.2); Basophils % (auto) 0.6 %; Eosinophils # (auto) 0.75 K/uL (0-0.50); Eosinophils % (auto) 6.5 %; Hematocrit (blood only) 41.3 % (37.0-47.0); Hemoglobin 13.2 g/dl (12.0-16.0); Immature Granulocytes # (auto) 0.44 K/uL (0.01-0.20); Immature Granulocytes % (auto) 3.8 %; Lymphocytes # (auto) 3.02 K/uL (1.2-3.4); Lymphocytes % (auto) 26.3 %; Mean Corpuscular Hemoglobin 30.3 pg (25.0-34.0); Mean Corpuscular Volume 94.7 fL (80.0-100.0); Mean Platelet Volume 11.3 fL (9.4-12.4); Monocytes # (auto) 0.99 K/uL (0.11-0.59); Monocytes % (auto) 8.6 %; Neutrophils # (auto) 6.22 K/uL (1.40-6.50); Neutrophils % (auto) 54.2 %; Platelet Count 305 K/uL (130-400); RDW Coefficient of Variation 13.9 % (11.5-14.5); RDW Standard Deviation 48.9 fL (36.4-46.3); Red Blood Count 4.36 M/uL (4.20-5.40); White Blood Count 11.49 K/ul (4.8-10.8)
[2022-12-12 06:44] LABS: BUN Creatinine Ratio 23.3 (10-20); Calcium 8.7 mg/dl (8.6-10.3); Creatinine Clr Calc Pharmacy 44.3 ml/min; Est GFR (African American) 67.1 ml/min; Est GFR (Non-African American) 57.9 ml/min; Potassium 3.9 mmol/L (3.5-5.1)
[2022-12-12 06:56] LABS: Partial Thromboplastin Ratio 1.4
[2022-12-12] MEDS ORDERED: LEVALBUTEROL 1.25 MG/3 ML NEB ONE ×2 (06:57→19:08)
[2022-12-12 07:00] LABS: Partial Thromboplastin Time 40.4 Seconds (21.0-31.0)
[2022-12-12] MEDS: ACETYLCYSTEINE 10% INHAL SOLN 4 ML **DISPENSED BY RESP. INH SCH ×2 (07:00→19:11)
[2022-12-12] MEDS: SENNA 8.6 MG TAB PO SCH ×2 (08:24→20:52)
[2022-12-12] MEDS: PIPERACILLIN/TAZOBACTAM 4.5 GM in DEXTROSE 5% 100 ML IV SCH (08:24)
[2022-12-12] MEDS: CEROVITE ADV FORMULA TAB PO SCH ×2 (08:25→20:52)
[2022-12-12] MEDS: OLANZapine 5 MG TABLET PO SCH ×2 (08:25→20:52)
[2022-12-12] MEDS: MULTIVITAMIN TAB PO SCH (08:31)
[2022-12-12] MEDS: HEPARIN SODIUM/DEXTROSE 25,000 UNITS/500 ML BAG IV SCH (13:07)
--- NOTE | 2022-12-12 14:38 | CT Scan Report ---
HEAD CT NONCONTRAST CT DOSE: 614.27 mGy.cm HISTORY: drowsiness, aspiration TECHNIQUE: Multiaxial CT images of the head were performed without the use of intravenous contrast. A utomated exposure control was utilized for this study. A dose lowering technique was utilized adheri ng to the principles of ALARA. Comparison: Head CT 03/07/2021. Findings: The paranasal sinuses and mastoid air cells are clear. The calvarium and skull base are int act. There is no mass, hematoma, midline shift, acute infarct. White matter hypodensity is nonspecifi c but suggestive of microvascular ischemic change. The ventricles and sulci demonstrate mild age-rela timmy involutional changes. Stable ventriculomegaly which favors central volume loss. Impression: No significant change compared to the prior study. No acute intracranial abnormality. ACT 112: Negative or not required by law. Electronically signed by: Vance Shook M.D. 12/12/2022 2:37 PM
--- NOTE | 2022-12-12 15:46 | Hospitalist Progress Note ---
Date of Service December 12, 2022 Assessment & Plan (1) Severe sepsis: Plan: Bilateral pneumonia, possible aspiration related Acute hypoxic respiratory failure --CT chest: 1. Bilateral airspace opacities, right greater than left, with partial opaci fication of bilateral lower lobe bronchi. This favors a pneumonia and could be due to aspiration. 2. Small nodular densities within the right upper lobe posteriorly and superior segment of the right lower lobe also favor an infectious process. However, 3- [address] follow-up recommended to ensure resolution of these nodular densities and the lower lobe airspace opacities. 3. No pleural effusion. 4. Mild cardiomegaly. --Respiratory panel: Negative Nasal MRSA: Negative Blood cultures: Negative x48 hours 12/12 Patient appears to be awake, but eyes mostly closed, speaking in random words Called [facility], [place], spoke with RN, states patient's baseline is confused, eyes mostly closed, but able to take crushed medications and minced and moist diet Zosyn transitioned to Unasyn Continue doxycycline Nebs 4 times daily with Mucomyst twice daily started Suctioning as needed per bar staff Wean of oxygen accordingly Discussed with speech therapy Can try pured diet with thin liquids when patient more awake Discussed with patient's in detail over the UTI Urine culture from [facility] growing Proteus, sensitive to Zosyn Continue with Unasyn New onset A-fib -- Likely secondary to underlying pneumonia, hypoxia --Heart rate in the 110s --Continue IV metoprolol2.5 mg IV every 6 hours Currently on heparin drip Echocardiogram: Normal left ventricular wall motion, EF 55 to 60%, left atrium severely dilated, no significant aortic valvular stenosis, mild mitral regurg Cardiology service consulted 12/12 Heart rate controlled Continue metoprolol 2.5 mg IV every 6 hours Continue heparin drip Cardiology service on board, appreciate recommendations Abnormal LFTs -Improving Liver ultrasound:1. Normal sonographic appearance of the liver. 2. Cholelithiasis without sonographic evidence of acute cholecystitis -Monitor Dementia Continue olanzapine p.o. twice daily Hold gabapentin, mirtazapine past tobacco abuse DVT prophylaxis. IV heparin DNR as per patient's prior directives. Disposition Anticipate discharge to correction facility when medically stable plan of care discussed with patient's [place] in detail and at length all questions answered he is understanding, agreeable, comfortable with the plan of care Admission and Anticipated Discharge Date Admission Date: December 10, 2022 Subjective Follow-up for pneumonia, etc. Seen resting in bed, sleeping, easily awakened but keeps eyes closed, speaking random words On 2 L of oxygen via nasal cannula Denies shortness of breath, pain Not in distress, comfortable, no signs of pain Able to take crushed pills this morning No other issues per user interface artist of Systems Review of Systems: all noted and negative except for above Physical Exam Physical Exam: General- oriented x 0, not in distress, speaks in sentences with no effort or accessory muscle use Eyes- anicteric Neck- no JVD Lungs-mild rhonchi bilateral bases No wheezing Heart- normal rate, regular rhythm; no murmurs Abdomen- normal bowel sounds, nondistended, soft, nontender Extremities- no pretibial edema, no calf tenderness Neuro-awake but eyes are closed, not oriented; no new gross focal neurologic deficits Skin- warm & dry Results & Data Results & Data Vital Signs (Past 12 Hours) Vital Signs Temp Pulse Pulse Resp BP BP Pulse Ox 12/12/22 13:06 110 H 12/12/22 13:06 36.4 C L 109 H 20 144/102 H 99 12/12/22 08:00 12/12/22 08:00 84 12/12/22 08:14 36.4 C L 104 H 20 141/99 H 97 12/12/22 07:00 84 18 97 12/12/22 05:00 12/12/22 05:14 88 123/89 12/12/22 04:24 36.7 C 88 18 123/89 Pulse Ox O2 Del Method O2 Del Method O2 Flow Rate O2 Flow Rate 12/12/22 13:06 12/12/22 13:06 Nasal Cannula 2.0 12/12/22 08:00 Nasal Cannula 2 12/12/22 08:00 12/12/22 08:14 Nasal Cannula 2.0 12/12/22 07:00 Nasal Cannula 2 12/12/22 05:00 94 Nasal Cannula 2 12/12/22 05:14 12/12/22 04:24 Nasal Cannula 2.0 all noted and reviewed including below
--- NOTE | 2022-12-12 15:50 | Cardiology Progress Note ---
Date of Service December 12, 2022 Assessment & Plan (1) Paroxysmal atrial fibrillation: Plan: - Patient presents with recent viral respiratory tract infection now with suspected superimposed pneumonia, aspiration suspected based on chest x-ray and CT findings. -Urinalysis also suggests urinary tract infection. -Patient has baseline dementia, and subjective history limited. Dr. Hutchinson spoke to the assisted staff, and patient's baseline cognition is that she is able to moan words and takes pills. -Repeat CT of the head today without intracranial process -Speech therapy note reviewed, concerns of aspiration noted. -New onset atrial fibrillation observed (chronicity / acuity unknown). Patient currently not taking oral medications. Agree with IV metoprolol 2.5 mg IV every 4 hours for HR > 110 bpm, and unfractioned heparin. -Likely not a candidate for chronic anticoagulation. -Continue antibiotics as per hospitalist service. -DVT prophylaxis: She is on full anticoagulation dose unfractionated heparin infusion. (2) Hypokalemia: Plan: - Potassium improved from 3.2 on 12/12/22 to 3.9 on 12/12/2022 after IV potassium replacement. (3) Dementia: Plan: - chronic. (4) Pneumonia: Plan: - Continue piperacillin tazobactam, doxycycline (5) Acute UTI (urinary tract infection): Plan: - Continue antibiotics as noted above Admission and Anticipated Discharge Date Admission Date: December 10, 2022 Subjective Patient seen in cardiology follow-up. Patient unable to provide any subjective history. Telemetry reveals atrial fibrillation, rates little bit higher than yesterday in the range of 110 to 150 bpm at rest. Review of Systems Review of Systems: Unobtainable due to cognitive status Physical Exam Physical Exam: Temp Pulse Resp BP Pulse Ox O2 Del Method O2 Flow Rate 36.4 C L 109 H 20 144/102 H 99 Nasal Cannula 2.0 12/12/22 13:06 12/12/22 13:06 12/12/22 13:06 12/12/22 13:06 12/12/22 13:06 12/12/22 13:06 12/12/22 13:06 Constitutional: no acute distress Respiratory: + cough Auscultation: no crackles, no rales and no wheezes Cardiovascular: Rate/Rhythm: + tachycardic and + irregularly irregular Heart Sounds: no murmur Gastrointestinal (Abdomen): normal bowel sounds, soft, nontender, no hepatosplenomegaly Results & Data Laboratory Results Coagulation 12/12/22 Range/Units 05:28 APTT 40.4 H* (21.0-31.0) Seconds CBC 12/12/22 Range/Units 05:28 WBC 11.49 H (4.8-10.8) K/ul RBC 4.36 (4.20-5.40) M/uL Hgb 13.2 (12.0-16.0) g/dl Hct 41.3 (37.0-47.0) % Plt Count 305 (130-400) K/uL Neut # (Auto) 6.22 (1.40-6.50) K/uL Lymph # (Auto) 3.02 (1.2-3.4) K/uL King # (Auto) 0.99 H (0.11-0.59) K/uL Eos # (Auto) 0.75 H (0-0.50) K/uL Baso # (Auto) 0.07 (0-0.2) K/uL Comprehensive Metabolic Panel 12/12/22 Range/Units 05:28 Sodium 143 (136-145) mmol/L Potassium 3.9 D (3.5-5.1) mmol/L Chloride 111 H (98-107) mmol/L Carbon Dioxide 25 (21-32) mmol/L BUN 21 (6-23) mg/dl Creatinine 0.90 (0.6-1.2) mg/dl Glucose 152 H (70-99(Fasting)) mg/dl Calcium 8.7 (8.6-10.3) mg/dl (3) Dementia Alzheimer's disease onset: other onset Dementia behavioral disturbance: without behavioral disturbance Dementia type: Alzheimer's Qualified Code(s): G30.8 - Other Alzheimer's disease; F02.80 - Dementia in other diseases classified elsewhere without behavioral disturbance (4) Pneumonia Laterality: right Lung location: lower lobe of lung Pneumonia type: due to unspecified organism Qualified Code(s): J18.9 - Pneumonia, unspecified organism
[2022-12-12] MEDS: METOPROLOL TARTRATE 1 MG/ML VIAL IV PRN (16:13)
[2022-12-12] MEDS: AMPICILLIN/SULBACTAM SOD 3,000 MG in 0.9 % SODIUM CHLORIDE 100 ML IV SCH ×2 (16:41→22:06)
[2022-12-12] MEDS: MELATONIN 3 MG TAB PO SCH (20:52)
[2022-12-13] MEDS: METOPROLOL TARTRATE 1 MG/ML VIAL IV SCH ×4 (00:15→17:04)
[2022-12-13] MEDS: LEVALBUTEROL 1.25MG/0.5ML NEB INH SCH ×4 (00:38→19:36)
[2022-12-13] MEDS: IPRATROPIUM BROMIDE NEB SOLN 0.02% 2.5 ML VIAL INH SCH ×4 (00:38→19:36)
[2022-12-13] MEDS: AMPICILLIN/SULBACTAM SOD 3,000 MG in 0.9 % SODIUM CHLORIDE 100 ML IV SCH ×4 (04:35→21:52)
[2022-12-13] MEDS: DOXYCYCLINE HYCLATE 100 MG in DEXTROSE 5% 100 ML IV SCH ×2 (05:39→19:20)
[2022-12-13] MEDS: ACETYLCYSTEINE 10% INHAL SOLN 4 ML **DISPENSED BY RESP. INH SCH ×2 (07:06→19:35)
[2022-12-13] MEDS: D5NSS + 20MEQ KCL 20 MEQ/1,000 ML BAG IV SCH ×2 (07:32→23:19)
[2022-12-13 07:51] LABS: Basophils # (auto) 0.07 K/uL (0-0.2); Basophils % (auto) 0.7 %; Hematocrit (blood only) 42.1 % (37.0-47.0); Hemoglobin 13.3 g/dl (12.0-16.0); Immature Granulocytes # (auto) 0.47 K/uL (0.01-0.20); Immature Granulocytes % (auto) 4.7 %; Mean Corpuscular Hemoglobin 30.4 pg (25.0-34.0); Mean Corpuscular Hgb Conc 31.6 g/dL (32.0-36.0); Mean Corpuscular Volume 96.1 fL (80.0-100.0); Mean Platelet Volume 11.1 fL (9.4-12.4); Monocytes # (auto) 0.82 K/uL (0.11-0.59); Monocytes % (auto) 8.2 %; Neutrophils # (auto) 5.84 K/uL (1.40-6.50); Neutrophils % (auto) 58.4 %; Platelet Count 291 K/uL (130-400); RDW Coefficient of Variation 14.2 % (11.5-14.5); RDW Standard Deviation 50.4 fL (36.4-46.3); Red Blood Count 4.38 M/uL (4.20-5.40)
[2022-12-13 08:07] LABS: Creatinine Clr Calc Pharmacy 49.4 ml/min; Est GFR (African American) 76.2 ml/min; Est GFR (Non-African American) 65.8 ml/min; Potassium 4.4 mmol/L (3.5-5.1)
[2022-12-13 08:18] LABS: Partial Thromboplastin Ratio 1.3; Partial Thromboplastin Time 37.1 Seconds (21.0-31.0)
[2022-12-13] MEDS: SENNA 8.6 MG TAB PO SCH ×2 (08:28→20:38)
[2022-12-13] MEDS: CEROVITE ADV FORMULA TAB PO SCH ×2 (08:28→20:38)
[2022-12-13] MEDS: OLANZapine 5 MG TABLET PO SCH ×2 (08:28→20:38)
[2022-12-13] MEDS: MULTIVITAMIN TAB PO SCH (08:28)
--- NOTE | 2022-12-13 15:27 | Hospitalist Progress Note ---
Date of Service December 13, 2022 Assessment & Plan (1) Severe sepsis: Plan: Bilateral pneumonia, possible aspiration related Acute hypoxic respiratory failure --CT chest: 1. Bilateral airspace opacities, right greater than left, with partial opaci fication of bilateral lower lobe bronchi. This favors a pneumonia and could be due to aspiration. 2. Small nodular densities within the right upper lobe posteriorly and superior segment of the right lower lobe also favor an infectious process. However, 3- [address] follow-up recommended to ensure resolution of these nodular densities and the lower lobe airspace opacities. 3. No pleural effusion. 4. Mild cardiomegaly. --Respiratory panel: Negative Nasal MRSA: Negative Blood cultures: Negative x48 hours 12/12 Patient appears to be awake, but eyes mostly closed, speaking in random words Called [facility], spoke with RN, states patient's baseline is confused, eyes mostly closed, but able to take crushed medications and minced and moist diet Zosyn transitioned to Unasyn Continue doxycycline Nebs 4 times daily with Mucomyst twice daily started Suctioning as needed per staff development coordinator rn Wean of oxygen accordingly Discussed with speech therapy Can try pured diet with thin liquids when patient more awake Discussed with patient's in detail over the 12/13 Remains on 2 L of nasal cannula Leukocytosis resolved Patient tolerating crushed medications and pured diet, not thin liquids Overall clinically improving gradually Continue Unasyn plus doxycycline Continue nebs with Mucomyst, as needed suctioning Monitor closely UTI Urine culture from [facility] growing Proteus, sensitive to Zosyn Continue with Unasyn New onset A-fib -- Likely secondary to underlying pneumonia, hypoxia --Heart rate in the 110s --Continue IV metoprolol2.5 mg IV every 6 hours Currently on heparin drip Echocardiogram: Normal left ventricular wall motion, EF 55 to 60%, left atrium severely dilated, no significant aortic valvular stenosis, mild mitral regurg Cardiology service consulted 12/12 Heart rate controlled Continue metoprolol 2.5 mg IV every 6 hours Continue heparin drip Cardiology service on board, appreciate recommendations 12/13 Heart rate mostly controlled, continue metoprolol 2.5 mg IV every 6 hours and heparin drip Abnormal LFTs -Improving Liver ultrasound:1. Normal sonographic appearance of the liver. 2. Cholelithiasis without sonographic evidence of acute cholecystitis -Monitor Dementia Continue olanzapine p.o. twice daily Hold gabapentin, mirtazapine past tobacco abuse DVT prophylaxis. IV heparin DNR as per patient's prior directives. Disposition Anticipate discharge to [facility] facility when medically stable plan of care discussed with patient's Hoben at bedside in detail and at length all questions answered he is understanding, agreeable, comfortable with the plan of care Admission and Anticipated Discharge Date Admission Date: December 10, 2022 Subjective Follow-up for bilateral pneumonia, etc. Seen resting in bed, comfortable on 2 L of oxygen Patient sleepy this morning Would occasionally say a few words, but eyes are mostly closed No signs of distress, accessory muscle use, or pain Discussed with RN Patient had breakfast with no problems with pured food, avoiding thin liquids today still No signs of overt aspiration with pured food No other new symptoms noted Review of Systems Review of Systems: all noted and negative except for above Physical Exam Physical Exam: General-sleepy, not in distress, breathing with no effort or accessory muscle use Eyes- anicteric Neck- no JVD Lungs-positive mild rhonchi at the bases, no wheezing Heart- normal rate, regular rhythm; no murmurs Abdomen- normal bowel sounds, nondistended, soft, nontender Extremities- no pretibial edema, no calf tenderness Neuro- alert, oriented x2; no gross focal neurologic deficits Skin- warm & dry Results & Data Results & Data Vital Signs (Past 12 Hours) Vital Signs Temp Pulse Pulse Resp BP BP Pulse Ox 12/13/22 13:10 80 18 94 12/13/22 11:35 36.3 C L 109 H 20 142/83 H 98 12/13/22 10:27 12/13/22 08:06 36.8 C 74 18 142/87 H 97 12/13/22 07:08 88 17 94 12/13/22 05:49 105 H 137/96 12/13/22 05:48 105 H 137/96 O2 Del Method O2 Flow Rate 12/13/22 13:10 Nasal Cannula 2 12/13/22 11:35 Nasal Cannula 2 12/13/22 10:27 Nasal Cannula 2 12/13/22 08:06 Room Air 12/13/22 07:08 Nasal Cannula 2 12/13/22 05:49 12/13/22 05:48 all noted and reviewed including below
[2022-12-13 16:17] LABS: Partial Thromboplastin Ratio 1.5
[2022-12-13 16:34] LABS: Partial Thromboplastin Time 43.3 Seconds (21.0-31.0)
[2022-12-13] MEDS: ACETAMINOPHEN 325 MG TAB PO PRN (17:43)
[2022-12-13] MEDS: METOPROLOL TARTRATE 1 MG/ML VIAL IV PRN ×2 (17:57→21:50)
[2022-12-13] MEDS: MELATONIN 3 MG TAB PO SCH (20:37)
[2022-12-13] MEDS: HEPARIN SODIUM/DEXTROSE 25,000 UNITS/500 ML BAG IV SCH (22:23)
[2022-12-14] MEDS: METOPROLOL TARTRATE 1 MG/ML VIAL IV SCH ×4 (00:12→16:35)
[2022-12-14] MEDS: IPRATROPIUM BROMIDE NEB SOLN 0.02% 2.5 ML VIAL INH SCH ×4 (02:08→19:16)
[2022-12-14] MEDS: LEVALBUTEROL 1.25MG/0.5ML NEB INH SCH ×4 (02:09→19:16)
[2022-12-14] MEDS: AMPICILLIN/SULBACTAM SOD 3,000 MG in 0.9 % SODIUM CHLORIDE 100 ML IV SCH ×4 (03:38→22:10)
[2022-12-14] MEDS: DOXYCYCLINE HYCLATE 100 MG in DEXTROSE 5% 100 ML IV SCH ×2 (06:16→19:38)
[2022-12-14 06:38] LABS: Hematocrit (blood only) 38.1 % (37.0-47.0); Hemoglobin 12.2 g/dl (12.0-16.0); Mean Corpuscular Hemoglobin 30.7 pg (25.0-34.0); Mean Corpuscular Volume 95.7 fL (80.0-100.0); Platelet Count 286 K/uL (130-400); RDW Coefficient of Variation 14.2 % (11.5-14.5); RDW Standard Deviation 50.4 fL (36.4-46.3); Red Blood Count 3.98 M/uL (4.20-5.40)
[2022-12-14 06:50] LABS: BUN Creatinine Ratio 24.2 (10-20); Calcium 8.5 mg/dl (8.6-10.3); Creatinine Clr Calc Pharmacy 61.6 ml/min; Est GFR (African American) 92.7 ml/min; Potassium 4.5 mmol/L (3.5-5.1)
[2022-12-14] MEDS: ACETYLCYSTEINE 10% INHAL SOLN 4 ML **DISPENSED BY RESP. INH SCH (06:50)
[2022-12-14 06:57] LABS: Basophils % (auto) 0.8 %; Eosinophils # (auto) 0.58 K/uL (0-0.50); Eosinophils % (auto) 4.6 %; Immature Granulocytes # (auto) 0.64 K/uL (0.01-0.20); Immature Granulocytes % (auto) 5.1 %; Lymphocytes # (auto) 2.79 K/uL (1.2-3.4); Lymphocytes % (auto) 22.1 %; Monocytes # (auto) 0.81 K/uL (0.11-0.59); Monocytes % (auto) 6.4 %; Neutrophils # (auto) 7.68 K/uL (1.40-6.50)
[2022-12-14 07:13] LABS: Partial Thromboplastin Ratio 1.8
[2022-12-14 07:19] LABS: Partial Thromboplastin Time 49.8 Seconds (21.0-31.0)
[2022-12-14] MEDS: OLANZapine 5 MG TABLET PO SCH ×2 (08:10→17:29)
[2022-12-14] MEDS: CEROVITE ADV FORMULA TAB PO SCH ×2 (08:10→20:43)
[2022-12-14] MEDS: MULTIVITAMIN TAB PO SCH (08:11)
[2022-12-14] MEDS: SENNA 8.6 MG TAB PO SCH ×2 (08:11→20:44)
[2022-12-14] MEDS: GABAPENTIN 100 MG CAP PO SCH ×2 (13:49→20:42)
[2022-12-14] MEDS: ACETAMINOPHEN 325 MG TAB PO PRN (17:29)
--- NOTE | 2022-12-14 17:32 | Hospitalist Progress Note ---
Date of Service December 14, 2022 Assessment & Plan (1) Severe sepsis: Plan: Bilateral pneumonia, possible aspiration related Acute hypoxic respiratory failure --CT chest: 1. Bilateral airspace opacities, right greater than left, with partial opaci fication of bilateral lower lobe bronchi. This favors a pneumonia and could be due to aspiration. 2. Small nodular densities within the right upper lobe posteriorly and superior segment of the right lower lobe also favor an infectious process. However, 3- [address] follow-up recommended to ensure resolution of these nodular densities and the lower lobe airspace opacities. 3. No pleural effusion. 4. Mild cardiomegaly. --Respiratory panel: Negative Nasal MRSA: Negative Blood cultures: Negative x48 hours 12/12 Patient appears to be awake, but eyes mostly closed, speaking in random words Called [facility], spoke with RN, states patient's baseline is confused, eyes mostly closed, but able to take crushed medications and minced and moist diet Zosyn transitioned to Unasyn Continue doxycycline Nebs 4 times daily with Mucomyst twice daily started Suctioning as needed per staff air defense officer Wean of oxygen accordingly Discussed with speech therapy Can try pured diet with thin liquids when patient more awake Discussed with patient's in detail over the 12/13 Remains on 2 L of nasal cannula Leukocytosis resolved Patient tolerating crushed medications and pured diet, not thin liquids Overall clinically improving gradually Continue Unasyn plus doxycycline Continue nebs with Mucomyst, as needed suctioning Monitor closely 12/14 Remains on 2 L of nasal cannula Appears to be clinically improving overall Continue Unasyn plus doxycycline, nebs video swallow study tomorrow Continue pured diet, no liquids until video swallow study tomorrow UTI Urine culture from [facility] growing Proteus, sensitive to Zosyn Continue with Unasyn New onset A-fib -- Likely secondary to underlying pneumonia, hypoxia --Heart rate in the 110s --Continue IV metoprolol2.5 mg IV every 6 hours Currently on heparin drip Echocardiogram: Normal left ventricular wall motion, EF 55 to 60%, left atrium severely dilated, no significant aortic valvular stenosis, mild mitral regurg Cardiology service consulted 12/12 Heart rate controlled Continue metoprolol 2.5 mg IV every 6 hours Continue heparin drip Cardiology service on board, appreciate recommendations 12/13 Heart rate mostly controlled, continue metoprolol 2.5 mg IV every 6 hours and heparin drip 5/7 Heart rate mostly controlled, will transition to p.o. metoprolol tartrate 12.5 mg p.o. twice daily Continue heparin drip, likely not a candidate for chronic anticoagulation per cardiology Abnormal LFTs -Improving Liver ultrasound:1. Normal sonographic appearance of the liver. 2. Cholelithiasis without sonographic evidence of acute cholecystitis -Monitor Dementia Continue olanzapine p.o. twice daily Resume gabapentin and mirtazapine past tobacco abuse DVT prophylaxis. IV heparin DNR as per patient's prior directives. Disposition Anticipate discharge to nursing home facility when medically stable Admission and Anticipated Discharge Date Admission Date: December 10, 2022 Subjective Follow-up for pneumonia, etc. Seen resting in bed, sleeping, appears more drowsy today Remains on 2 L of oxygen by nasal cannula Mumbling words, confused No signs of distress, pain Per RN, patient was noted to be having restless legs earlier today Still doing well with pured diet No other new symptom Review of Systems Review of Systems: all noted and negative except for above Physical Exam Physical Exam: General-somewhat drowsy, not in distress, breathing without effort or accessory muscle use Eyes- anicteric Neck- no JVD Lungs-mild rales at the bases, no wheezing, good air entry bilaterally Heart- normal rate, irregularly irregular rhythm; no murmurs Abdomen- normal bowel sounds, nondistended, soft, nontender Extremities- no pretibial edema, no calf tenderness Neuro-drowsy, no new gross focal neurologic deficits noted Skin- warm & dry Results & Data Results & Data Vital Signs (Past 12 Hours) Vital Signs Temp Pulse Pulse Pulse Resp BP BP 12/14/22 16:28 36.7 C 118 H 18 129/74 12/14/22 15:01 101 H 12/14/22 12:00 36.8 C 113 H 18 149/100 H 12/14/22 12:39 99 H 111/78 12/14/22 11:52 110 H 12/14/22 08:51 84 12/14/22 08:51 12/14/22 08:09 105 H 150/89 H 12/14/22 06:52 84 18 12/14/22 05:47 97 H 135/88 12/14/22 05:38 97 H 135/88 12/14/22 06:47 36.5 C 98 H 18 165/96 H Pulse Ox O2 Del Method O2 Flow Rate 12/14/22 16:28 97 Room Air 12/14/22 15:01 12/14/22 12:00 97 Nasal Cannula 12/14/22 12:39 12/14/22 11:52 12/14/22 08:51 12/14/22 08:51 Nasal Cannula 2 12/14/22 08:09 12/14/22 06:52 95 Nasal Cannula 2 12/14/22 05:47 12/14/22 05:38 12/14/22 06:47 95 Nasal Cannula 3.5 all noted and reviewed including below
[2022-12-14] MEDS ORDERED: LEVALBUTEROL 1.25 MG/3 ML NEB ONE (19:13)
[2022-12-14] MEDS: MELATONIN 3 MG TAB PO SCH (20:43)
[2022-12-14] MEDS: MIRTAZAPINE TAB 15 MG TAB PO SCH (20:43)
[2022-12-14] MEDS: METOPROLOL TARTRATE 25 MG TAB PO SCH (20:44)
[2022-12-14] MEDS ORDERED: LEVALBUTEROL HCL 0.63 MG/3 ML NEB ONE (23:59)
[2022-12-15] MEDS: LEVALBUTEROL 1.25MG/0.5ML NEB INH SCH ×4 (00:02→19:34)
[2022-12-15] MEDS: AMPICILLIN/SULBACTAM SOD 3,000 MG in 0.9 % SODIUM CHLORIDE 100 ML IV SCH ×4 (04:10→22:28)
[2022-12-15] MEDS: DOXYCYCLINE HYCLATE 100 MG in DEXTROSE 5% 100 ML IV SCH ×2 (05:00→20:09)
[2022-12-15 06:16] LABS: Mean Corpuscular Hemoglobin 30.5 pg (25.0-34.0); Mean Corpuscular Hgb Conc 32.5 g/dL (32.0-36.0); Mean Corpuscular Volume 93.9 fL (80.0-100.0); Mean Platelet Volume 10.8 fL (9.4-12.4); Platelet Count 280 K/uL (130-400); RDW Coefficient of Variation 14.1 % (11.5-14.5); RDW Standard Deviation 48.7 fL (36.4-46.3); Red Blood Count 4.26 M/uL (4.20-5.40)
[2022-12-15] MEDS: HEPARIN SODIUM/DEXTROSE 25,000 UNITS/500 ML BAG IV SCH (06:20)
[2022-12-15 06:30] LABS: BUN Creatinine Ratio 23.2 (10-20); Creatinine Clr Calc Pharmacy 58.4 ml/min; Est GFR (African American) 91.4 ml/min; Est GFR (Non-African American) 78.8 ml/min; Potassium 4.1 mmol/L (3.5-5.1)
[2022-12-15 06:57] LABS: Partial Thromboplastin Ratio 1.9; Partial Thromboplastin Time 53.6 Seconds (21.0-31.0)
[2022-12-15 07:03] LABS: Basophils # (auto) 0.12 K/uL (0-0.2); Eosinophils # (auto) 0.62 K/uL (0-0.50); Immature Granulocytes # (auto) 0.64 K/uL (0.01-0.20); Immature Granulocytes % (auto) 5.2 %; Lymphocytes # (auto) 3.23 K/uL (1.2-3.4); Monocytes # (auto) 0.69 K/uL (0.11-0.59); Monocytes % (auto) 5.6 %; Neutrophils % (auto) 57.2 %
[2022-12-15] MEDS: IPRATROPIUM BROMIDE NEB SOLN 0.02% 2.5 ML VIAL INH SCH ×4 (07:08→19:33)
[2022-12-15] MEDS: CEROVITE ADV FORMULA TAB PO SCH ×2 (08:20→20:21)
[2022-12-15] MEDS: METOPROLOL TARTRATE 25 MG TAB PO SCH ×2 (08:20→20:20)
[2022-12-15] MEDS: MULTIVITAMIN TAB PO SCH (08:20)
[2022-12-15] MEDS: GABAPENTIN 100 MG CAP PO SCH ×2 (08:20→20:20)
[2022-12-15] MEDS: SENNA 8.6 MG TAB PO SCH ×2 (08:21→20:22)
[2022-12-15] MEDS: OLANZapine 5 MG TABLET PO SCH ×2 (08:21→20:21)
--- NOTE | 2022-12-15 13:02 | Fluoroscopy Report ---
FL video swallow CLINICAL HISTORY: 87 years-old Female with r/o aspiration. Dysphagia with possible aspiration TECHNIQUE: Video fluoroscopic evaluation of swallowing was performed in the AP and lateral projection s by the speech pathology staff. The patient is fed thin liquid, mildly thick and pudding consistenci es. FLUOROSCOPY TIME: 1.8 minutes. 647 images were submitted. 9.63 mGy Air Kerma COMPARISON STUDY: Chest CT 12/10/2022 FINDINGS: Aspiration with thin liquid barium. There is abnormal hyoid excursion and epiglottic deflec tion. Limited exam secondary to positioning. No additional aspiration identified. Disordered oral pha ryngeal transit. IMPRESSION: 1. Aspiration with thin liquid barium. 2. Please see the speech pathologist report for detailed findings and recommendations. ACT 112: Negative or not required by law. Electronically signed by: Shailesh Benton M.D. 12/15/2022 1:01 PM
--- NOTE | 2022-12-15 15:51 | Hospitalist Progress Note ---
Date of Service December 15, 2022 Assessment & Plan (1) Severe sepsis: Plan: Bilateral pneumonia, possible aspiration related Acute hypoxic respiratory failure --CT chest: 1. Bilateral airspace opacities, right greater than left, with partial opaci fication of bilateral lower lobe bronchi. This favors a pneumonia and could be due to aspiration. 2. Small nodular densities within the right upper lobe posteriorly and superior segment of the right lower lobe also favor an infectious process. However, 3- [address] follow-up recommended to ensure resolution of these nodular densities and the lower lobe airspace opacities. 3. No pleural effusion. 4. Mild cardiomegaly. --Respiratory panel: Negative Nasal MRSA: Negative Blood cultures: Negative x48 hours 12/12 Patient appears to be awake, but eyes mostly closed, speaking in random words Called [facility], spoke with RN, states patient's baseline is confused, eyes mostly closed, but able to take crushed medications and minced and moist diet Zosyn transitioned to Unasyn Continue doxycycline Nebs 4 times daily with Mucomyst twice daily started Suctioning as needed per staff software engineer Wean of oxygen accordingly Discussed with speech therapy Can try pured diet with thin liquids when patient more awake Discussed with patient's in detail over the 12/13 Remains on 2 L of nasal cannula Leukocytosis resolved Patient tolerating crushed medications and pured diet, not thin liquids Overall clinically improving gradually Continue Unasyn plus doxycycline Continue nebs with Mucomyst, as needed suctioning Monitor closely 12/14 Remains on 2 L of nasal cannula Appears to be clinically improving overall Continue Unasyn plus doxycycline, nebs video swallow study tomorrow Continue pured diet, no liquids until video swallow study tomorrow 12/15 Stable overall, will try to wean off oxygen today Continue Unasyn plus doxycycline, nebs Video swallow study performed, recommend pured diet with thickened liquid UTI Urine culture from [facility] growing Proteus, sensitive to Zosyn Continue with Unasyn New onset A-fib -- Likely secondary to underlying pneumonia, hypoxia --Heart rate in the 110s --Continue IV metoprolol2.5 mg IV every 6 hours Currently on heparin drip Echocardiogram: Normal left ventricular wall motion, EF 55 to 60%, left atrium severely dilated, no significant aortic valvular stenosis, mild mitral regurg Cardiology service consulted 12/12 Heart rate controlled Continue metoprolol 2.5 mg IV every 6 hours Continue heparin drip Cardiology service on board, appreciate recommendations 5/6 Heart rate mostly controlled, continue metoprolol 2.5 mg IV every 6 hours and heparin drip 5/7 Heart rate mostly controlled, will transition to p.o. metoprolol tartrate 12.5 mg p.o. twice daily Continue heparin drip, likely not a candidate for chronic anticoagulation per cardiology 5/8 Heart rate controlled Continue metoprolol titrate 12 5 mg p.o. twice a day, heparin drip Patient not a candidate for chronic anticoagulation therapy per cardiology service Abnormal LFTs -Improving Liver ultrasound:1. Normal sonographic appearance of the liver. 2. Cholelithiasis without sonographic evidence of acute cholecystitis -Monitor Dementia Continue olanzapine p.o. twice daily Continue usual gabapentin and mirtazapine past tobacco abuse DVT prophylaxis. IV heparin DNR as per patient's prior directives. Disposition Anticipate discharge to residential facility in 1 to 2 days Discussed with shelter case manager Garrick, patient's deciding on hospice services upon patient's return to [facility] Admission and Anticipated Discharge Date Admission Date: December 10, 2022 Subjective Follow-up for sepsis, pneumonia, hypoxic respiratory failure, etc. Seen resting in bed, comfortable, not in distress, sleepy Discussed with NORBERTO Reis Patient doing good today Had video swallow study done Doing well with pured diet No signs of respiratory distress, pain No restless legs noted today No any other signs noted Review of Systems Review of Systems: all noted and negative except for above Physical Exam Physical Exam: General-mostly sleeping, no signs of distress, no accessory muscle use Eyes- anicteric Neck- no JVD Lungs-mild rhonchi at the bases, improving, no wheezing Heart- normal rate, regular rhythm; no murmurs Abdomen- normal bowel sounds, nondistended, soft, nontender Extremities- no pretibial edema, no calf tenderness Neuro-sleeping Skin- warm & dry Results & Data Results & Data Vital Signs (Past 12 Hours) Vital Signs Temp Pulse Pulse Resp BP Pulse Ox O2 Del Method 12/15/22 15:32 36.7 C 95 H 18 116/83 96 Nasal Cannula 12/15/22 13:11 90 15 94 Nasal Cannula 12/15/22 10:44 36.5 C 90 19 117/81 93 Nasal Cannula 12/15/22 07:43 105 H 12/15/22 07:43 Nasal Cannula 12/15/22 07:32 36.5 C 98 H 19 181/89 H 96 Nasal Cannula 12/15/22 07:08 95 H 14 98 Nasal Cannula O2 Flow Rate 12/15/22 15:32 1 12/15/22 13:11 3 12/15/22 10:44 2 12/15/22 07:43 12/15/22 07:43 2 12/15/22 07:32 2 12/15/22 07:08 3 all noted and reviewed including below
[2022-12-15] MEDS ORDERED: LEVALBUTEROL 1.25 MG/3 ML NEB ONE ×2 (19:06→23:45)
[2022-12-15] MEDS: MELATONIN 3 MG TAB PO SCH (20:21)
[2022-12-15] MEDS: MIRTAZAPINE TAB 15 MG TAB PO SCH (20:22)
[2022-12-15] MEDS: METOPROLOL TARTRATE 1 MG/ML VIAL IV PRN (23:36)
[2022-12-16] MEDS: IPRATROPIUM BROMIDE NEB SOLN 0.02% 2.5 ML VIAL INH SCH ×3 (00:02→13:20)
[2022-12-16] MEDS: LEVALBUTEROL 1.25MG/0.5ML NEB INH SCH ×3 (00:04→13:20)
[2022-12-16] MEDS: AMPICILLIN/SULBACTAM SOD 3,000 MG in 0.9 % SODIUM CHLORIDE 100 ML IV SCH ×4 (04:02→22:40)
[2022-12-16] MEDS: DOXYCYCLINE HYCLATE 100 MG in DEXTROSE 5% 100 ML IV SCH ×2 (05:49→20:22)
[2022-12-16 06:35] LABS: Basophils % (auto) 0.7 %; Eosinophils # (auto) 0.39 K/uL (0-0.50); Eosinophils % (auto) 2.9 %; Hematocrit (blood only) 39.5 % (37.0-47.0); Immature Granulocytes # (auto) 0.52 K/uL (0.01-0.20); Immature Granulocytes % (auto) 3.8 %; Lymphocytes # (auto) 3.39 K/uL (1.2-3.4); Mean Corpuscular Hemoglobin 30.2 pg (25.0-34.0); Mean Corpuscular Hgb Conc 32.9 g/dL (32.0-36.0); Mean Corpuscular Volume 91.6 fL (80.0-100.0); Mean Platelet Volume 10.9 fL (9.4-12.4); Monocytes # (auto) 0.91 K/uL (0.11-0.59); Monocytes % (auto) 6.7 %; Neutrophils # (auto) 8.25 K/uL (1.40-6.50); Neutrophils % (auto) 60.9 %; Platelet Count 314 K/uL (130-400); RDW Coefficient of Variation 13.8 % (11.5-14.5); RDW Standard Deviation 46.7 fL (36.4-46.3); Red Blood Count 4.31 M/uL (4.20-5.40); White Blood Count 13.56 K/ul (4.8-10.8)
[2022-12-16 06:36] LABS: BUN Creatinine Ratio 23.5 (10-20); Calcium 8.8 mg/dl (8.6-10.3); Creatinine Clr Calc Pharmacy 50.3 ml/min; Est GFR (African American) 76.2 ml/min; Est GFR (Non-African American) 65.8 ml/min; Potassium 4.2 mmol/L (3.5-5.1)
[2022-12-16] MEDS ORDERED: LEVALBUTEROL 1.25 MG/3 ML NEB ONE (06:51)
[2022-12-16 07:13] LABS: Partial Thromboplastin Ratio 1.8
[2022-12-16 07:15] LABS: Partial Thromboplastin Time 51.3 Seconds (21.0-31.0)
[2022-12-16] MEDS: METOPROLOL TARTRATE 1 MG/ML VIAL IV PRN ×2 (08:18→15:10)
[2022-12-16] MEDS: SENNA 8.6 MG TAB PO SCH ×2 (08:19→20:13)
[2022-12-16] MEDS: OLANZapine 5 MG TABLET PO SCH ×2 (08:21→20:13)
[2022-12-16] MEDS: CEROVITE ADV FORMULA TAB PO SCH ×2 (08:21→20:13)
[2022-12-16] MEDS: GABAPENTIN 100 MG CAP PO SCH ×2 (08:21→20:12)
[2022-12-16] MEDS: MULTIVITAMIN TAB PO SCH (08:22)
[2022-12-16] MEDS: METOPROLOL TARTRATE 25 MG TAB PO SCH ×2 (08:23→19:23)
--- NOTE | 2022-12-16 10:05 | Hospitalist Progress Note ---
Date of Service December 16, 2022 Assessment & Plan (1) Severe sepsis: Plan: Bilateral pneumonia, possible aspiration related Acute hypoxic respiratory failure --CT chest: 1. Bilateral airspace opacities, right greater than left, with partial opaci fication of bilateral lower lobe bronchi. This favors a pneumonia and could be due to aspiration. 2. Small nodular densities within the right upper lobe posteriorly and superior segment of the right lower lobe also favor an infectious process. However, 3- [address] follow-up recommended to ensure resolution of these nodular densities and the lower lobe airspace opacities. 3. No pleural effusion. 4. Mild cardiomegaly. --Respiratory panel: Negative Nasal MRSA: Negative Blood cultures: Negative x48 hours Patient appears to be awake, but eyes mostly closed, speaking in random words Called [facility], spoke with RN, states patient's baseline is confused, eyes mostly closed, but able to take crushed medications and minced and moist diet Zosyn transitioned to Unasyn Continued doxycycline Nebs 4 times daily with Mucomyst twice daily started Suctioning as needed per staff counselor Video swallow study performed, recommend pured diet with thickened liquid, patient tolerating well On day 6 of antibiotics including Unasyn and doxycycline, last day tomorrow Per patient's , patient to be evaluated by hospice services upon return to [facility] tomorrow wellness program manager on board UTI Urine culture from [facility] growing Proteus, sensitive to Zosyn Continue with Unasyn day number 6 out of 7 New onset A-fib -- Likely secondary to underlying pneumonia, hypoxia --Heart rate in the 110s -- Given IV metoprolol2.5 mg IV every 6 hours and heparin drip Echocardiogram: Normal left ventricular wall motion, EF 55 to 60%, left atrium severely dilated, no significant aortic valvular stenosis, mild mitral regurg Cardiology service consulted 12/16 Heart rate mostly controlled Transitioned to metoprolol 25 mg p.o. twice daily Continued on heparin drip Patient not a candidate for chronic anticoagulation therapy per cardiology service Abnormal LFTs -Improving Liver ultrasound:1. Normal sonographic appearance of the liver. 2. Cholelithiasis without sonographic evidence of acute cholecystitis Dementia Continue olanzapine p.o. twice daily Continue usual gabapentin 100 mg p.o. twice daily for restless legs Hold mirtazapine, patient on the drowsy side since yesterday past tobacco abuse DVT prophylaxis. IV heparin DNR as per patient's prior directives. Disposition Patient to be accepted back to [facility] tomorrow Discussed with high risk case manager Garrick, patient's deciding on hospice services upon patient's return to [facility] Admission and Anticipated Discharge Date Admission Date: December 10, 2022 Subjective ff up for pneumonia, etc seen resting in bed, sleeping off oxygen supplement mumbles few words not in distress, comfortable discussed with RN took medications, had some pureed diet- no problems no other issues Review of Systems Review of Systems: all noted and negative except for above Physical Exam Physical Exam: General- not in distress, eyes mostly closed, breathing with no effort or accessory muscle use Eyes- anicteric Neck- no JVD Lungs- clear breath sounds bilaterally, no crackles/wheezing Heart- normal rate, regular rhythm; no murmurs Abdomen- normal bowel sounds, nondistended, soft, no tenderness Extremities- no pretibial edema, no calf tenderness Neuro- mostly sleeping Skin- warm & dry Results & Data Results & Data Vital Signs (Past 12 Hours) Vital Signs Temp Pulse Pulse Resp BP BP Pulse Ox 12/16/22 08:39 36.4 C L 110 H 18 137/87 94 12/16/22 08:18 130 H 113/74 12/16/22 07:43 109 H 12/16/22 07:22 73 14 93 12/16/22 03:09 36.5 C 115 H 20 113/74 91 12/16/22 00:02 16 96 12/15/22 23:36 116 H 155/107 H 12/15/22 22:54 36.5 C 116 H 20 155/107 H 97 O2 Del Method FiO2 12/16/22 08:39 Room Air 12/16/22 08:18 12/16/22 07:43 12/16/22 07:22 Room Air 21 12/16/22 03:09 Room Air 12/16/22 00:02 Room Air 12/15/22 23:36 12/15/22 22:54 Room Air all noted and reviewed including below
[2022-12-16] MEDS: HEPARIN SODIUM/DEXTROSE 25,000 UNITS/500 ML BAG IV SCH (11:18)
[2022-12-16] MEDS ORDERED: LEVALBUTEROL 1.25 MG/3 ML NEB INH PRN (15:42)
[2022-12-16] MEDS ORDERED: IPRATROPIUM BROMIDE NEB SOLN 0.02% 2.5 ML VIAL INH PRN (15:42)
[2022-12-16] MEDS: MELATONIN 3 MG TAB PO SCH (20:13)
[2022-12-17] MEDS: AMPICILLIN/SULBACTAM SOD 3,000 MG in 0.9 % SODIUM CHLORIDE 100 ML IV SCH (03:44)
[2022-12-17 06:49] LABS: BUN Creatinine Ratio 26.6 (10-20); Calcium 8.9 mg/dl (8.6-10.3); Est GFR (African American) 78.6 ml/min; Est GFR (Non-African American) 67.8 ml/min
[2022-12-17 07:17] LABS: Partial Thromboplastin Ratio 2.1
[2022-12-17 07:23] LABS: Partial Thromboplastin Time 58.9 Seconds (21.0-31.0)
[2022-12-17] MEDS: METOPROLOL TARTRATE 25 MG TAB PO SCH (08:55)
[2022-12-17] MEDS: GABAPENTIN 100 MG CAP PO SCH (08:55)
[2022-12-17] MEDS: CEROVITE ADV FORMULA TAB PO SCH (08:55)
[2022-12-17] MEDS: OLANZapine 5 MG TABLET PO SCH (08:55)
[2022-12-17] MEDS: MULTIVITAMIN TAB PO SCH (08:55)
[2022-12-17] MEDS: SENNA 8.6 MG TAB PO SCH (09:07)
--- NOTE | 2022-12-17 09:33 | Discharge Summary ---
Date of Service December 17, 2022 Admission HPI Per Admitting Provider History obtained from [facility] staff and records. Limited history from patient secondary to dementia. Medical history significant for dementia, osteoporosis, anxiety/mood disorder, past tobacco abuse. Last confinement February 2021 for left hip fracture status post surgery. Patient noted to be ill last week at [facility] with respiratory tract infection. Rhinovirus on respiratory panel as per records. Scattered episodes of vomiting since last week. Increased coughing symptoms. Yesterday, patient noted to be febrile, temperature 100.2. Sats noted to be 89 on room air. Irregular heart rhythm on auscultation as per [facility] provider documentation. WBC noted to be 18, abnormal LFTs noted. Chest x-ray and abdominal ultrasound contemplated. IV ceftriaxone administered at [facility]. Patient sent to ER for evaluation of worsening symptoms. Patient not any more confused as usual as per [facility] staff. O2 sats 89 on room air upon arrival at the ER. Doxycycline and Zosyn administered at the ER. Patient unable to respond to questions regarding headache, chest pain, SOB, abdominal pain. 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 Admission Exam Per Admitting Provider GENERAL: demented, responds to pain, no respiratory distress SKIN: Normal color, warm HEENT: [place] palpebral conjunctivae, no ptosis, dry buccal mucosa, nasal cannula in place NECK : Supple, no tenderness CHEST : Decreased breath sounds, no tenderness HEART : Irregular, tachycardic, no obvious murmurs ABDOMEN: Some distention, nontender EXTREMITIES : No LE swelling/tenderness, no other conspicuous deformities noted NEUROLOGIC : Demented, no facial asymmetry, gait and stance not assessed Principal Diagnosis Bilateral pneumonia, acute hypoxic respiratory failure Atrial fibrillation Discharge Exam General- elderly F not in distress, eyes mostly closed, breathing with no effort or accessory muscle use Neck- no JVD Lungs- + mild rhonchi, + cough Heart- normal rate, regular rhythm; no murmurs Abdomen- normal bowel sounds, nondistended, soft, no tenderness Extremities- no pretibial edema Neuro- mostly sleeping Skin- warm & dry Discharge Data Allergies Allergy/AdvReac Type Severity Reaction Status Date / Time No Known Allergies Allergy Verified 03/07/21 01:31 Consultations 12/09/22 23:41 ED Decision to Admit Stat 12/10/22 02:34 Consult Cardiology Routine Ordered Studies 12/10/22 06:03 US liver Urgent 1. Normal sonographic appearance of the liver. 2. Cholelithiasis without sonographic evidence of acute cholecystitis 12/10/22 07:59 CT chest without contrast [CT chest diagnostic wo con] Routine 1. Bilateral airspace opacities, right greater than left, with partial opacification of bilateral lower lobe bronchi. This favors a pneumonia and could be due to aspiration. 2. Small nodular densities within the right upper lobe posteriorly and superior segment of the right lower lobe also favor an infectious process. However, 3- [address] follow-up recommended to ensure resolution of these nodular densities and the lower lobe airspace opacities. 3. No pleural effusion. 4. Mild cardiomegaly. 12/12/22 13:14 CT head/brain wo con Routine No significant change compared to the prior study. No acute intracranial abnormality. 12/15/22 11:30 FL video swallow Routine 1. Aspiration with thin liquid barium. 2. Please see the speech pathologist report for detailed findings and recommendations. Hospital Course (1) Severe sepsis: Bilateral pneumonia, possible aspiration related Acute hypoxic respiratory failure --CT chest: 1. Bilateral airspace opacities, right greater than left, with partial opacification of bilateral lower lobe bronchi. This favors a pneumonia and could be due to aspiration. 2. Small nodular densities within the right upper lobe posteriorly and superior segment of the right lower lobe also favor an infectious process. However, 3- [address] follow-up recommended to ensure resolution of these nodular densities and the lower lobe airspace opacities. 3. No pleural effusion. 4. Mild cardiomegaly. --Respiratory panel: Negative Nasal MRSA: Negative Blood cultures: Negative x48 hours Patient appears to be awake, but eyes mostly closed, speaking in random words Per RN at [facility] - patient's baseline is confused, eyes mostly closed, but able to take crushed medications and minced and moist diet Zosyn transitioned to Unasyn Continued doxycycline Nebs 4 times daily with Mucomyst twice daily started Suctioning as needed per staff veterinarian Video swallow study performed, recommend pured diet with thickened liquid, patient tolerating well On day 7 of antibiotics including Unasyn and doxycycline, last day today Per patient's , patient to be evaluated by hospice services upon return to [facility] today manager steel involved UTI Urine culture from [facility] growing Proteus, sensitive to Zosyn Continued with Unasyn - finished 7 day course New onset A-fib -- Likely secondary to underlying pneumonia, hypoxia --Heart rate in the 110s -- Given IV metoprolol 2.5 mg IV every 6 hours and heparin drip Echocardiogram: Normal left ventricular wall motion, EF 55 to 60%, left atrium severely dilated, no significant aortic valvular stenosis, mild mitral regurg Cardiology service consulted 12/16 Heart rate mostly controlled Transitioned to metoprolol 25 mg p.o. twice daily Continued on heparin drip Patient not a candidate for chronic anticoagulation therapy per cardiology service Abnormal LFTs -Improving Liver ultrasound:1. Normal sonographic appearance of the liver. 2. Cholelithiasis without sonographic evidence of acute cholecystitis Dementia Continue olanzapine p.o. twice daily Continue usual gabapentin 100 mg p.o. twice daily for restless legs Hold mirtazapine, patient on the drowsy side past tobacco abuse DVT prophylaxis. IV heparin while inpt DNR as per patient's prior directives. Disposition Patient to be accepted back to [facility] today Per previous hospitalist and registered nurse hh case manager, patient's deciding on hospice services upon patient's return to [facility] Total Time Total Time Spent Total Time Spent (In Minutes): 40 Discharge Plan Discharge Items Patient Disposition: Transfer Residential Fac Reason For Visit: AFIB, SEPSIS Discharge Diagnosis: Bilateral pneumonia, acute hypoxic respiratory failure Atrial fibrillation Activity: As commented below Activity Comment: Fall precautions Non-emergency contact: Primary Care Provider Call non-emergency contact if: you have any medication questions, your symptoms worsen, your pain is not controlled and you have a fever Follow-up/Referrals: Ja Boggs at [facility] [Primary Care Provider] - Diet: Heart Healthy Diet Comment: Pured diet, nectar thick liquids, supervise with all meals/drinking Addtl Attending Provider Instructions: Strict aspiration precautions. Supervise with all meals/drinking. Hospice service evaluation to [facility]. Please refer to accompanying hospital discharge summary for further details. Pending Studies at Discharge: No Stand-Alone Forms: My [place] Skilled Items Patient informed of condition?: No DNR: Yes Discharge Level of Care: Skilled Communicable Disease: No Discharge Prognosis: Stable Lines: None Urinary Catheter: No Medications and DC Order Prescriptions: New metoprolol tartrate 25 mg Tablet 12.5 mg PO BID 30 Days Qty: 30 0RF Continued PreserVision AREDS [id number] Capsule 1 cap PO [facility] multivitamin Tablet 1 tab PO QAM sennosides [senna] 8.6 mg Tablet 8.6 mg PO BID acetaminophen [Tylenol] 325 mg Tablet 650 mg PO Q4H MDD 3 GRAMS/24 HOURS PRN (Reason: TEMP/PAIN) melatonin 3 mg Tablet 3 mg PO HS olanzapine 5 mg tablet 5 mg PO BID gabapentin 100 mg capsule 100 mg PO [facility] Selsun Blue 1 % Shampoo 1 applic TOPICAL [id number] Rx Instructions: apply to scalp topically every evening shift every Thu, on shower days OcuSoft Lid Scrub Plus Pads, Medicated 1 pad TOPICAL [facility] acetaminophen 325 mg Tablet 650 mg PO QAM Artificial Tears (PF) Dropperette 2 drp OPB QID cholecalciferol (vitamin D3) 25 mcg (1,000 unit) Tablet 25 mcg PO QAM Eucerin Cream 1 applic TOPICAL Q8 PRN (Reason: Dry Skin) guaifenesin 100 mg/5 mL Liquid 200 mg PO Q4H PRN (Reason: Cough) Rx Instructions: start 12/05/22 end 12/11/22 Discontinued mirtazapine [Remeron] 15 mg Tablet 15 mg PO HS sodium chloride 0.45 % 0.45 % parenteral solution 1 ea continuous IV infusion QS Rx Instructions: use 75 ml/hr every shift Discharge Orders: Discharge Order (Routine); Ordered 12/17/22 Ordered By: Isiah Abel Admission Data Admit Date/Time: 12/10/22 02:28 Attending Provider: Isiah Abel Admit Provider: Tanner Becerra Primary Care Provider: Ja Boggs [facility] Other Providers: Tanner Becerra ; Kay Beltran ; Lupillo Devine ; Waldo Allan ; Nhan Mendez ; Bert Meeks ; Silverio Lira ; Cece Ennis ; Angeli Jennings ; Kay Vega ; Aaron Ace ; Jamel Becerra ; Ja Boggs [facility] ; Brett Dai
== END 2022-12-17 11:04 | disposition hospice, inpatient (51) | DRG 871 ==
LOC: ED 21:36 → SUATTDRO 12-10 02:28 → 2S 12-10 02:28